=== PATIENT | male | born 1955 | race Caucasian/White ===

== ENCOUNTER 2017-01-04 15:13 | Observation (INO) ==
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
[2017-01-04 16:23] LABS: Basophils % 0.1 % (0.0-0.8); Eosinophils % 0.1 % (0.00-10.9); Hematocrit 39.4 VOL% (42.0-52.0); Hemoglobin 13.6 GM/DL (14.0-18.0); Immature Granulocytes % 0.6 %; Immature Granulocytes Absolute 0.08 #; Lymphocytes # 0.8 10*3/uL (1.4-4.0); Lymphocytes % 6.2 % (21.2-54.2); Mean Corpuscular HGB Conc 34.5 GM/DL (32-36); Mean Corpuscular Hemoglobin 30 PG (27-34); Mean Corpuscular Volume 85.7 FL (87-102); Mean Platelet Volume 9.8 FL (9.6-12.0); Monocytes # 0.6 10*3/uL (0.11-0.8); Monocytes % 4.3 % (1.7-12.7); Neutrophils # 11.9 10*3/uL (1.4-7.4); Neutrophils % 88.7 % (38.7-73.9); Platelet Count 259 T/CUMM (130-400); Red Cell Distribution Width 12.9 % (9.3-17.3); White Blood Count 13.5 T/CUMM (4-12)
--- NOTE | 2017-01-04 16:24 | XRay Report ---
XR KUB Indication: Abdominal pain. Abdomen one view: Comparison 07/23/2011. Surgical anastomotic suture line left colon noted. Slightly increased stool is present in primarily the ascending and transverse segments of the colon. No small bowel dilatation. No free air. Impression: Mild constipation. No obstruction. PROCEDURE INTERPRETED AT [facility] DEPARTMENT OF RADIOLOGY Final Report Signed by: Edilberto Pollard M.D.
[2017-01-04 16:35] LABS: Apearance,Urine CLEAR (Clear); Bilirubin,Urine Negative (Negative); Blood, Urine Negative (Negative); Glucose,Urine (UA) >=500 mg/dL (Negative); Ketones,Urine 80 mg/dL (Negative); Mucus,Urine Occasional /LPF (Occasional); Nitrite,Urine Negative (Negative); Protein,Urine Negative; Urine Color Straw (Yellow); Urine Specific Gravity 1.023 (1.001-1.035); Urine Urobilinogen < 2.0 EU/DL (0.2-1.0); WBC,Urine <1 /HPF (0-6)
[2017-01-04 16:36] LABS: Alanine Aminotransferase 36 U/L (16-61); Albumin 3.5 G/DL (3.4-5.0); Alkaline Phosphatase 141 U/L (45-117); Amylase 30 U/L (25-115); Aspartate Amino Transferase 12 U/L (0-37); Barbiturates Screen,Urine Negative (Negative); Benzodiazepines Screen,Urine Negative (Negative); Blood Urea Nitrogen 20 MG/DL (7-18); Calcium 8.8 MG/DL (8.5-10.1); Cannabinoid Screen,Urine Negative (Negative); Glucose 456 MG/DL (74-106); Opiate Screen,Urine Positive (Negative); Osmolality,Calculated 290.2 MOS/KG (273-304); Phencyclidine Screen,Urine Negative (Negative); Sodium 134 MMOL/L (136-145); Total Protein 6.7 G/DL (6.4-8.3)
[2017-01-04] MEDS ORDERED: INSULIN REGULAR 100 UNIT/ML IV STA (16:45)
[2017-01-04] MEDS ORDERED: INSULIN REGULAR 100 UNIT/ML ONE (16:49)
[2017-01-04 17:28] LABS: ABG Base Excess -6.1 MMOL/L (-2.5-2.5); ABG HCO3 18.2 MMOL/L (20-26); ABG Oxygen Saturation 97.5 % (95-100); ABG PCO2 32.5 MM HG (35-48); ABG PH 7.366 (7.35-7.45); ABG PO2 109.1 MM HG (80-95); ABG TCO2 19.2 MMOL/L (23-27)
[2017-01-04] MEDS ORDERED: PROMETHAZINE 25 MG/1 ML VIAL IM STA (17:36)
[2017-01-04] MEDS ORDERED: SODIUM CHLORIDE 0.9% 1,000 ML IV STA (17:38)
[2017-01-04] MEDS ORDERED: PROMETHAZINE 25 MG/1 ML VIAL ONE (17:41)
--- NOTE | 2017-01-04 19:17 | CT Report ---
CT abdomen pelvis w con Indication: Right upper quadrant pain with vomiting. CT ABDOMEN AND PELVIS WITH CONTRAST DLP: 392 mGy*cm. One or more of the following dose reduction techniques was used: Automated exposure control, adjustment of the mA and/or kV according the patient size, or use of iterative reconstruction techniques. Comparison: None Technique: Axial CT images of the abdomen and pelvis were obtained with IV contrast; Omnipaque 350, 100 cc. Oral contrast was administered. Abdomen: Normal heart size. Mild thickening of the distal esophagus noted. No hiatal hernia. Lung bases are clear. No bowel obstruction. Liver, spleen, pancreas and adrenal glands are unremarkable. 11 mm right renal hypodensity and 3 mm left hypodensities are present. Both kidneys are otherwise unremarkable. Aorta is normal size. Pelvis: Appendix not identified but there is no right lower quadrant inflammation. No free fluid, free air or lymphadenopathy. Urinary bladder and prostate are unremarkable. Somewhat increased gas is present focally in the distal rectum just above the anal verge. L5-S1 degenerative disc disease noted. Impression: 1. Evidence of mild esophagitis with thickening of the distal esophageal wall. 2. Bilateral renal hypodensities, probably cysts. PROCEDURE INTERPRETED AT [facility] DEPARTMENT OF RADIOLOGY Final Report Signed by: Edilberto Pollard M.D.
[2017-01-04] MEDS ORDERED: PANTOPRAZOLE 40 MG VIAL IV STA (19:43)
[2017-01-04] MEDS ORDERED: MORPHINE 2 MG/1 ML SYRINGE IV STA (19:43)
[2017-01-04] MEDS ORDERED: PANTOPRAZOLE 40 MG VIAL IV ONE (19:54)
[2017-01-04] MEDS ORDERED: MORPHINE 2 MG/1 ML SYRINGE ONE (19:54)
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
[2017-01-04] MEDS ORDERED: ENOXAPARIN 40 MG/0.4 ML SYRINGE SUBCUT SCH (21:00)
[2017-01-04] MEDS ORDERED: GLUCAGON 1 MG VIAL IM PRN ×2 (21:24→22:25)
[2017-01-04] MEDS ORDERED: PROMETHAZINE 25 MG TABLET PO PRN (21:24)
[2017-01-04] MEDS ORDERED: LACTULOSE 20 GM/30 ML UDCUP PO PRN (21:24)
[2017-01-04] MEDS ORDERED: PROMETHAZINE 25 MG/1 ML VIAL IM PRN (21:24)
[2017-01-04] MEDS ORDERED: traZODone 50 MG TABLET PO PRN (21:24)
[2017-01-04] MEDS ORDERED: DEXTROSE 50% 25 GM/50 ML SYRINGE IV PRN (21:24)
[2017-01-04] MEDS ORDERED: ACETAMINOPHEN 325 MG TABLET PO PRN (21:24)
[2017-01-04] MEDS ORDERED: ONDANSETRON 4 MG/2 ML VIAL IV PRN (21:24)
[2017-01-04] MEDS ORDERED: DEXTROSE 50% 25 GM/50 ML VIAL IV PRN (22:25)
[2017-01-04] MEDS: PANTOPRAZOLE 40 MG TABLET PO SCH (22:52)
[2017-01-04] MEDS: INSULIN LISPRO 100 UNIT/ML SUBCUT SCH (22:53)
[2017-01-04] MEDS: SODIUM CHLORIDE 0.9% 1,000 ML IV SCH (23:05)
[2017-01-05 05:43] LABS: Basophils % 0.1 % (0.0-0.8); Eosinophils # 0.1 10*3/uL (0.0-0.87); Eosinophils % 0.9 % (0.00-10.9); Hematocrit 35.4 VOL% (42.0-52.0); Hemoglobin 12.2 GM/DL (14.0-18.0); Immature Granulocytes % 0.2 %; Immature Granulocytes Absolute 0.02 #; Lymphocytes # 1.8 10*3/uL (1.4-4.0); Lymphocytes % 22.8 % (21.2-54.2); Mean Corpuscular HGB Conc 34.5 GM/DL (32-36); Mean Corpuscular Hemoglobin 30 PG (27-34); Mean Corpuscular Volume 85.9 FL (87-102); Mean Platelet Volume 10.1 FL (9.6-12.0); Monocytes # 0.6 10*3/uL (0.11-0.8); Monocytes % 6.9 % (1.7-12.7); Neutrophils # 5.6 10*3/uL (1.4-7.4); Neutrophils % 69.1 % (38.7-73.9); Platelet Count 241 T/CUMM (130-400); Red Blood Count 4.12 MC/CUMM (3.8-5.5); Red Cell Distribution Width 13.2 % (9.3-17.3); White Blood Count 8.1 T/CUMM (4-12)
[2017-01-05 06:14] LABS: Albumin 2.9 G/DL (3.4-5.0); Bilirubin,Total 0.8 MG/DL (0.2-1.0); Osmolality,Calculated 287.1 MOS/KG (273-304); Potassium 4.9 MMOL/L (3.5-5.1); Total Protein 5.4 G/DL (6.4-8.3)
[2017-01-05] MEDS: INSULIN LISPRO 100 UNIT/ML SUBCUT SCH ×2 (07:48→10:47)
[2017-01-05] MEDS: SODIUM CHLORIDE 0.9% 1,000 ML IV SCH (07:49)
[2017-01-05] MEDS: PANTOPRAZOLE 40 MG TABLET PO SCH (08:33)
--- NOTE | 2017-01-05 09:10 | Discharge Summary ---
Hospital Course - Hospital Course Hospital Course: Discharge diagnosis: 1. Type II DM, uncontrolled 2. Esophagitis The patient presented to the hospital for evaluation of some abdominal pain. CT scan showed some mild esophagitis. Glucose was elevated and it appears that the emergency department physicians were worried about "impending DKA." He was admitted for observation. On the day of discharge, he ate all of the food on his tray. Glucose was acceptable. Serum CO2 was within the normal range. We will let him go home. Medication reconciliation has been performed. ADA diet. Activity as tolerated. He will follow-up with his local physician. This note was completed using [employer] voice recognition software. There may be manager of procurement errors as a result. Discharge Plan - Discharge Data Disposition: Disch To Home/Self Care Condition at Discharge: Stable Discharge Diet: advance to your usual diet Activity: resume usual activities as tolerated Hygiene: no restrictions Weight Bearing at Discharge: full weight bearing Driving: no restrictions - Discharge Medications Continue Ropinirole HCl 4 mg PO BEDTIME Insulin Glargine [Lantus] 45 - 50 unit SUBCUT QAM Insulin Regular [HumuLIN R] 20 unit SUBCUT QPM Duloxetine HCl [Duloxetine] 60 mg PO DAILY Amlodipine Besylate 5 mg PO DAILY Glimepiride 2 mg PO DAILY - Follow Up or Referral - Forms/Instructions Exam - Constitutional Vitals: Period Temp Pulse Resp BP Sys/[place] Pulse Ox Last 24 Hr 97.1 F-98.8 F 73-100 18-20 100-132/56-75 97-100 Vital signs are noted above. Heart is regular with no murmur. Chest is clear with no rales or wheezes. Abdomen is soft with no significant mass or tenderness. He is awake and alert Discharge Results Labs on day of discharge: Labs from last 24 hours 01/05/17 01/05/17 01/05/17 07:26 04:45 04:45 WBC RBC Hgb Hct MCV MCH MCHC RDW Plt Count MPV Neut % (Auto) Lymph % (Auto) [place] % (Auto) Eos % (Auto) Baso % (Auto) Neut # (Auto) Lymph # (Auto) [place] # (Auto) Eos # (Auto) Baso # (Auto) Immature Gran % Nucleated RBC % Immature Gran # Nucleated RBCs # Immature Plt Fraction ABG pH ABG pCO2 ABG pO2 ABG HCO3 ABG Total CO2 ABG O2 Saturation ABG Base Excess Sodium 135 L Potassium 4.9 Chloride 101 Carbon Dioxide 27 Anion Gap 11.9 BUN 17 Creatinine 1.00 GFR Calculation 79 BUN/Creatinine Ratio 17.00 Glucose 381 H POC Glucose 405 H Hemoglobin A1c 11.9 H Calculated Osmolality 287.1 Calcium 8.0 L Total Bilirubin 0.80 AST 11 ALT 28 Alkaline Phosphatase 108 Total Protein 5.4 L Albumin 2.9 L Globulin 2.5 Albumin/Globulin Ratio 1.1 Amylase Lipase Urine Color Urine Appearance Urine pH Ur Specific [place] Urine Protein Urine Glucose (UA) Urine Ketones Urine Blood Urine Nitrate Urine Bilirubin Urine Urobilinogen Urine Leukocytes Urine WBC Urine Mucus Ur Culture Indicated? Urine Opiates Screen Ur Barbiturates Screen Ur Phencyclidine Scrn U Amphetamine/Methamph U Benzodiazepines Scrn U Cocaine Metab Screen U Cannabinoids Screen Serum Alcohol 01/05/17 01/04/17 01/04/17 04:45 22:08 20:13 WBC 8.1 D RBC 4.12 Hgb 12.2 L Hct 35.4 L MCV 85.9 L MCH 30 MCHC 34.5 RDW 13.2 Plt Count 241 MPV 10.1 Neut % (Auto) 69.1 Lymph % (Auto) 22.8 [place] % (Auto) 6.9 Eos % (Auto) 0.9 Baso % (Auto) 0.1 Neut # (Auto) 5.6 Lymph # (Auto) 1.8 [place] # (Auto) 0.6 Eos # (Auto) 0.1 Baso # (Auto) 0.0 Immature Gran % 0.2 Nucleated RBC % 0.0 Immature Gran # 0.02 Nucleated RBCs # 0.00 Immature Plt Fraction 0.0 ABG pH ABG pCO2 ABG pO2 ABG HCO3 ABG Total CO2 ABG O2 Saturation ABG Base Excess Sodium Potassium Chloride Carbon Dioxide Anion Gap BUN Creatinine GFR Calculation BUN/Creatinine Ratio Glucose POC Glucose 205 H 196 H Hemoglobin A1c Calculated Osmolality Calcium Total Bilirubin AST ALT Alkaline Phosphatase Total Protein Albumin Globulin Albumin/Globulin Ratio Amylase Lipase Urine Color Urine Appearance Urine pH Ur Specific [place] Urine Protein Urine Glucose (UA) Urine Ketones Urine Blood Urine Nitrate Urine Bilirubin Urine Urobilinogen Urine Leukocytes Urine WBC Urine Mucus Ur Culture Indicated? Urine Opiates Screen Ur Barbiturates Screen Ur Phencyclidine Scrn U Amphetamine/Methamph U Benzodiazepines Scrn U Cocaine Metab Screen U Cannabinoids Screen Serum Alcohol 01/04/17 01/04/17 01/04/17 17:49 17:20 15:55 WBC 13.5 H RBC 4.60 Hgb 13.6 L Hct 39.4 L MCV 85.7 L MCH 30 MCHC 34.5 RDW 12.9 Plt Count 259 MPV 9.8 Neut % (Auto) 88.7 H Lymph % (Auto) 6.2 L [place] % (Auto) 4.3 Eos % (Auto) 0.1 Baso % (Auto) 0.1 Neut # (Auto) 11.9 H Lymph # (Auto) 0.8 L [place] # (Auto) 0.6 Eos # (Auto) 0.0 Baso # (Auto) 0.0 Immature Gran % 0.6 Nucleated RBC % 0.0 Immature Gran # 0.08 Nucleated RBCs # 0.00 Immature Plt Fraction 0.0 ABG pH 7.366 ABG pCO2 32.5 L ABG pO2 109.1 H ABG HCO3 18.2 L ABG Total CO2 19.2 L ABG O2 Saturation 97.5 ABG Base Excess -6.1 L Sodium Potassium Chloride Carbon Dioxide Anion Gap BUN Creatinine GFR Calculation BUN/Creatinine Ratio Glucose POC Glucose 317 H Hemoglobin A1c Calculated Osmolality Calcium Total Bilirubin AST ALT Alkaline Phosphatase Total Protein Albumin Globulin Albumin/Globulin Ratio Amylase Lipase Urine Color Urine Appearance Urine pH Ur Specific [place] Urine Protein Urine Glucose (UA) Urine Ketones Urine Blood Urine Nitrate Urine Bilirubin Urine Urobilinogen Urine Leukocytes Urine WBC Urine Mucus Ur Culture Indicated? Urine Opiates Screen Ur Barbiturates Screen Ur Phencyclidine Scrn U Amphetamine/Methamph U Benzodiazepines Scrn U Cocaine Metab Screen U Cannabinoids Screen Serum Alcohol 01/04/17 01/04/17 01/04/17 15:55 15:55 15:55 WBC RBC Hgb Hct MCV MCH MCHC RDW Plt Count MPV Neut % (Auto) Lymph % (Auto) [place] % (Auto) Eos % (Auto) Baso % (Auto) Neut # (Auto) Lymph # (Auto) [place] # (Auto) Eos # (Auto) Baso # (Auto) Immature Gran % Nucleated RBC % Immature Gran # Nucleated RBCs # Immature Plt Fraction ABG pH ABG pCO2 ABG pO2 ABG HCO3 ABG Total CO2 ABG O2 Saturation ABG Base Excess Sodium 134 L Potassium 5.0 Chloride 98 Carbon Dioxide 22 Anion Gap 19.0 H BUN 20 H Creatinine 1.00 GFR Calculation 85 BUN/Creatinine Ratio 20.00 Glucose 456 H POC Glucose Hemoglobin A1c Calculated Osmolality 290.2 Calcium 8.8 Total Bilirubin 1.20 H AST 12 ALT 36 Alkaline Phosphatase 141 H Total Protein 6.7 Albumin 3.5 Globulin 3.2 Albumin/Globulin Ratio 1.0 L Amylase 30 Lipase 116.0 Urine Color Straw Urine Appearance Clear Urine pH 5.0 Ur Specific [place] 1.023 Urine Protein Negative Urine Glucose (UA) >=500 Urine Ketones 80 Urine Blood Negative Urine Nitrate Negative Urine Bilirubin Negative Urine Urobilinogen < 2.0 H Urine Leukocytes Negative Urine WBC <1 Urine Mucus Occasional Ur Culture Indicated? Not indicated Urine Opiates Screen Positive H Ur Barbiturates Screen Negative Ur Phencyclidine Scrn Negative U Amphetamine/Methamph Negative U Benzodiazepines Scrn Negative U Cocaine Metab Screen Negative U Cannabinoids Screen Negative Serum Alcohol < 15 L DS: Provider Date of admission: 01/04/17 20:17 Primary care physician: . No PCP Attending physician on admission: Gage Fong MD Consults: 01/04/17 21:24 Consult to [facility], Educator [CONS] Routine Reason for [facility]: Diabetes Education Consult Comment: diabetes education Discharging clinician: Enoch Mcrae MD Expected date of discharge: 01/05/17
[2017-01-05 12:46] VITALS: BP 125/71
== END 2017-01-05 14:39 | disposition home or self-care (01) ==
LOC: EDBD → EDUNIT# → N.EDINP 15:13 → N.ED 15:13 → SUATTDRO 20:17 → N.3E 21:15
PROVIDERS: ADMIT Family Medicine; ATTEND Internal Medicine Geriatric Medicine

== ENCOUNTER 2017-04-06 00:07 | Inpatient (IN) ==
[2017-04-06] MEDS ORDERED: ONDANSETRON 4 MG/2 ML VIAL IV STA (00:48)
[2017-04-06] MEDS ORDERED: PANTOPRAZOLE 40 MG VIAL IV STA (00:48)
[2017-04-06] MEDS ORDERED: INSULIN REGULAR 100 UNIT/ML IV STA (00:48)
[2017-04-06] MEDS ORDERED: SODIUM CHLORIDE 0.9% 1,000 ML IV STA (00:48)
[2017-04-06 01:18] LABS: Alanine Aminotransferase 28 U/L (16-61); Albumin 3.9 G/DL (3.4-5.0); Alkaline Phosphatase 211 U/L (45-117); Amylase 25 U/L (25-115); Aspartate Amino Transferase 20 U/L (0-37); Blood Urea Nitrogen 23 MG/DL (7-18); Calcium 9.3 MG/DL (8.5-10.1); Magnesium 2.2 MG/DL (1.8-2.4); Osmolality,Calculated 299.8 MOS/KG (273-304); Potassium 5.5 MMOL/L (3.5-5.1); Sodium 130 MMOL/L (136-145); Total Protein 7.5 G/DL (6.4-8.3); Troponin I Only < 0.015 NG/ML (0.00-0.045)
[2017-04-06] MEDS ORDERED: PANTOPRAZOLE 40 MG VIAL IV ONE (01:18)
[2017-04-06] MEDS ORDERED: ONDANSETRON 4 MG/2 ML VIAL ONE (01:18)
[2017-04-06] MEDS ORDERED: INSULIN REGULAR 100 UNIT/ML ONE (01:23)
[2017-04-06 01:31] LABS: Lactic Acid 3.6 MMOL/L (0.4-2.0)
[2017-04-06 01:31] LABS: Allen Test Positive; Pt O2 Delivery Device Room Air
[2017-04-06 01:32] LABS: Glucose 754 MG/DL (74-106)
[2017-04-06 01:32] LABS: ABG HCO3 13.3 MMOL/L (20-26); ABG Oxygen Saturation 97.7 % (95-100); ABG PCO2 32.4 MM HG (35-48); ABG PH 7.232 (7.35-7.45); ABG PO2 115.9 MM HG (80-95); ABG TCO2 14.3 MMOL/L (23-27)
[2017-04-06] MEDS ORDERED: SODIUM CHLORIDE 0.9% 1,850 ML IV ONE (01:32)
[2017-04-06 01:36] LABS: Hemoglobin 15.3 GM/DL (14.0-18.0); Mean Corpuscular HGB Conc 33.3 GM/DL (32-36); Mean Corpuscular Hemoglobin 29 PG (27-34); Mean Corpuscular Volume 88.3 FL (87-102); Platelet Count 334 T/CUMM (130-400); Red Blood Count 5.21 MC/CUMM (3.8-5.5); Red Cell Distribution Width 12.7 % (9.3-17.3)
[2017-04-06 01:37] LABS: Basophils % 0.2 % (0.0-0.8); Immature Granulocytes % 1.8 %; Lymphocytes # 0.9 10*3/uL (1.4-4.0); Lymphocytes % 8.2 % (21.2-54.2); Mean Platelet Volume 10.1 FL (9.6-12.0); Monocytes # 0.5 10*3/uL (0.11-0.8); Monocytes % 4.6 % (1.7-12.7); Neutrophils # 9.3 10*3/uL (1.4-7.4); Neutrophils % 85.2 % (38.7-73.9)
[2017-04-06 01:50] LABS: INR 0.9; PT Patient Result 9.8 SECS; Partial Thromboplastin Time 23.3 SECS (0-40)
[2017-04-06] MEDS ORDERED: SODIUM CHLORIDE 0.9% IV PRN (02:30)
[2017-04-06] MEDS ORDERED: MAGNESIUM SULF RIDER 4 GM in PREMIX 1 EACH IV PRN (02:30)
[2017-04-06] MEDS ORDERED: SODIUM BICARB INJ 100 MEQ in STERILE WATER INJ 400 ML IV PRN (02:30)
[2017-04-06] MEDS ORDERED: MAGNESIUM SULF RIDER 2 GM in PREMIX 1 EACH IV PRN (02:30)
[2017-04-06] MEDS ORDERED: DEXTROSE 50% 25 GM/50 ML VIAL IV PRN ×2 (02:30)
[2017-04-06] MEDS ORDERED: SODIUM PHOSPHATE IV PRN (02:30)
[2017-04-06] MEDS ORDERED: INSULIN REGULAR DRIP 100 ML IV ONE (03:24)
[2017-04-06] MEDS ORDERED: SODIUM CHLORIDE 0.9% 100 ML IV ONE (03:32)
[2017-04-06] MEDS ORDERED: PIPERACILLIN/TAZOBACTAM 3,375 MG VIAL IV ONE (03:32)
[2017-04-06 03:35] LABS: Barbiturates Screen,Urine Negative (Negative); Benzodiazepines Screen,Urine Negative (Negative); Cannabinoid Screen,Urine Negative (Negative); Opiate Screen,Urine Negative (Negative); Phencyclidine Screen,Urine Negative (Negative)
[2017-04-06 03:40] LABS: Apearance,Urine CLEAR (Clear); Bilirubin,Urine Negative (Negative); Blood, Urine Negative (Negative); Glucose,Urine (UA) >=500 mg/dL (Negative); Ketones,Urine 80 mg/dL (Negative); Mucus,Urine Occasional /LPF (Occasional); Nitrite,Urine Negative (Negative); Protein,Urine Negative; Urine Color Straw (Yellow); Urine Urobilinogen < 2.0 EU/DL (0.2-1.0); WBC,Urine 2 /HPF (0-6)
[2017-04-06] MEDS: INSULIN REGULAR DRIP 100 ML IV SCH (03:50)
[2017-04-06] MEDS: SODIUM CHLORIDE 0.9% 1,000 ML IV SCH ×3 (03:55→21:13)
[2017-04-06] MEDS: PIPERACILLIN/TAZOBACTAM 3,375 MG in SODIUM CHLORIDE 0.9% 100 ML IV SCH ×3 (04:00→20:44)
[2017-04-06 04:55] LABS: Apearance,Urine CLEAR (Clear); Bilirubin,Urine Negative (Negative); Blood, Urine Negative (Negative); Glucose,Urine (UA) >=500 mg/dL (Negative); Ketones,Urine 80 mg/dL (Negative); Mucus,Urine Occasional /LPF (Occasional); Nitrite,Urine Negative (Negative); Protein,Urine Negative; RBC,Urine <1 /HPF (0-4); Urine Color Straw (Yellow); Urine Specific Gravity 1.013 (1.001-1.035); Urine Urobilinogen < 2.0 EU/DL (0.2-1.0); WBC,Urine 4 /HPF (0-6)
[2017-04-06 06:50] LABS: Basophils % 0.1 % (0.0-0.8); Hematocrit 31.4 VOL% (42.0-52.0); Hemoglobin 10.8 GM/DL (14.0-18.0); Immature Granulocytes % 0.6 %; Immature Granulocytes Absolute 0.08 #; Lymphocytes # 1.2 10*3/uL (1.4-4.0); Lymphocytes % 9.1 % (21.2-54.2); Mean Corpuscular HGB Conc 34.4 GM/DL (32-36); Mean Corpuscular Hemoglobin 30 PG (27-34); Mean Corpuscular Volume 86.5 FL (87-102); Mean Platelet Volume 9.3 FL (9.6-12.0); Monocytes # 0.8 10*3/uL (0.11-0.8); Monocytes % 6.3 % (1.7-12.7); Neutrophils # 10.5 10*3/uL (1.4-7.4); Neutrophils % 83.9 % (38.7-73.9); Platelet Count 251 T/CUMM (130-400); Red Blood Count 3.63 MC/CUMM (3.8-5.5); White Blood Count 12.6 T/CUMM (4-12)
[2017-04-06 07:24] LABS: Calcium 7.2 MG/DL (8.5-10.1); Osmolality,Calculated 296.8 MOS/KG (273-304); Potassium 3.9 MMOL/L (3.5-5.1)
[2017-04-06 07:28] LABS: Albumin 2.8 G/DL (3.4-5.0); Bilirubin,Total 0.9 MG/DL (0.2-1.0); Calcium 7.4 MG/DL (8.5-10.1); Osmolality,Calculated 293.1 MOS/KG (273-304); Potassium 4.1 MMOL/L (3.5-5.1); Total Protein 5.4 G/DL (6.4-8.3)
[2017-04-06] MEDS: ENOXAPARIN 40 MG/0.4 ML SYRINGE SUBCUT SCH (08:23)
[2017-04-06] MEDS: POTASSIUM CHLORIDE RIDER 10 MEQ in PREMIX 1 EACH IV PRN ×4 (08:55→16:08)
[2017-04-06] MEDS ORDERED: PIPERACILLIN/TAZOBACTAM 3,375 MG in SODIUM CHLORIDE 0.9% 100 ML IV SCH (10:00)
[2017-04-06] MEDS ORDERED: INSULIN NPH 100 UNIT/ML SUBCUT ONE ×2 (10:00→10:30)
[2017-04-06 13:35] LABS: Calcium 7.6 MG/DL (8.5-10.1); Osmolality,Calculated 285.4 MOS/KG (273-304); Potassium 3.6 MMOL/L (3.5-5.1)
[2017-04-06] MEDS ORDERED: INSULIN REGULAR 100 UNIT/ML IV ONE (14:06)
[2017-04-06] MEDS: DULoxetine 30 MG CAPSULE PO SCH (14:50)
[2017-04-06] MEDS: SODIUM CHLOR 0.9% KCL 20 MEQ 20 MEQ/1,000 ML BAG IV SCH (17:32)
[2017-04-06 19:19] LABS: Calcium 7.6 MG/DL (8.5-10.1); Osmolality,Calculated 281.4 MOS/KG (273-304); Potassium 3.6 MMOL/L (3.5-5.1)
[2017-04-06] MEDS: INSULIN NPH 100 UNIT/ML SUBCUT SCH (20:44)
[2017-04-06] MEDS: rOPINIRole 1 MG TABLET PO SCH (20:44)
[2017-04-07 01:11] LABS: Calcium 7.8 MG/DL (8.5-10.1); Osmolality,Calculated 274.4 MOS/KG (273-304); Potassium 3.7 MMOL/L (3.5-5.1)
[2017-04-07] MEDS: SODIUM CHLORIDE 0.9% 1,000 ML IV SCH ×2 (01:22→12:07)
[2017-04-07] MEDS: INSULIN REGULAR DRIP 100 ML IV SCH (02:01)
[2017-04-07] MEDS: PIPERACILLIN/TAZOBACTAM 3,375 MG in SODIUM CHLORIDE 0.9% 100 ML IV SCH ×3 (02:45→20:28)
[2017-04-07] MEDS: POTASSIUM CHLORIDE RIDER 10 MEQ in PREMIX 1 EACH IV PRN ×2 (02:46→04:11)
[2017-04-07] MEDS: KETOROLAC 15 MG/1 ML VIAL IV PRN (04:16)
[2017-04-07] MEDS ORDERED: INSULIN NPH 100 UNIT/ML SUBCUT SCH (07:30)
[2017-04-07] MEDS: ENOXAPARIN 40 MG/0.4 ML SYRINGE SUBCUT SCH (11:25)
[2017-04-07] MEDS: DULoxetine 30 MG CAPSULE PO SCH (11:25)
[2017-04-07] MEDS: INSULIN NPH 100 UNIT/ML SUBCUT SCH ×2 (13:56→20:49)
[2017-04-07] MEDS: SODIUM CHLOR 0.9% KCL 20 MEQ 20 MEQ/1,000 ML BAG IV SCH (14:00)
[2017-04-07] MEDS: rOPINIRole 1 MG TABLET PO SCH (20:49)
[2017-04-07] MEDS ORDERED: ONDANSETRON 4 MG/2 ML VIAL IV PRN (21:41)
[2017-04-08] MEDS: INSULIN REGULAR DRIP 100 ML IV SCH (01:59)
[2017-04-08 05:10] LABS: Basophils % 0.2 % (0.0-0.8); Eosinophils # 0.1 10*3/uL (0.0-0.87); Eosinophils % 1.5 % (0.00-10.9); Hemoglobin 13.3 GM/DL (14.0-18.0); Immature Granulocytes % 0.4 %; Immature Granulocytes Absolute 0.02 #; Lymphocytes # 1.4 10*3/uL (1.4-4.0); Lymphocytes % 25.4 % (21.2-54.2); Mean Corpuscular Hemoglobin 30 PG (27-34); Mean Corpuscular Volume 84.4 FL (87-102); Mean Platelet Volume 9.6 FL (9.6-12.0); Monocytes # 0.5 10*3/uL (0.11-0.8); Monocytes % 8.6 % (1.7-12.7); Neutrophils # 3.5 10*3/uL (1.4-7.4); Neutrophils % 63.9 % (38.7-73.9); Platelet Count 269 T/CUMM (130-400); Red Cell Distribution Width 12.6 % (9.3-17.3); White Blood Count 5.5 T/CUMM (4-12)
[2017-04-08] MEDS: PIPERACILLIN/TAZOBACTAM 3,375 MG in SODIUM CHLORIDE 0.9% 100 ML IV SCH ×4 (05:15→21:09)
[2017-04-08 05:36] LABS: Calcium 8.8 MG/DL (8.5-10.1)
[2017-04-08] MEDS: INSULIN NPH 100 UNIT/ML SUBCUT SCH ×2 (08:09→21:05)
[2017-04-08] MEDS: ENOXAPARIN 40 MG/0.4 ML SYRINGE SUBCUT SCH (08:58)
[2017-04-08] MEDS: DULoxetine 30 MG CAPSULE PO SCH (08:58)
[2017-04-08] MEDS: SODIUM CHLOR 0.9% KCL 20 MEQ 20 MEQ/1,000 ML BAG IV SCH (10:00)
[2017-04-08] MEDS ORDERED: DEXTROSE 50% 25 GM/50 ML VIAL IV PRN ×2 (11:32→12:39)
[2017-04-08] MEDS ORDERED: GLUCAGON 1 MG VIAL IM PRN ×2 (11:32→12:39)
[2017-04-08] MEDS: KETOROLAC 15 MG/1 ML VIAL IV PRN (16:37)
[2017-04-08] MEDS: INSULIN LISPRO 100 UNIT/ML SUBCUT SCH ×2 (18:04→21:06)
[2017-04-08] MEDS: INSULIN REGULAR 100 UNIT/ML SUBCUT SCH ×2 (18:04→21:05)
[2017-04-08] MEDS: rOPINIRole 1 MG TABLET PO SCH (21:03)
[2017-04-09] MEDS: INSULIN REGULAR DRIP 100 ML IV SCH (02:32)
[2017-04-09] MEDS: PIPERACILLIN/TAZOBACTAM 3,375 MG in SODIUM CHLORIDE 0.9% 100 ML IV SCH ×2 (05:43→13:35)
[2017-04-09] MEDS: ENOXAPARIN 40 MG/0.4 ML SYRINGE SUBCUT SCH (08:42)
[2017-04-09] MEDS: DULoxetine 30 MG CAPSULE PO SCH (08:42)
[2017-04-09] MEDS: INSULIN NPH 100 UNIT/ML SUBCUT SCH (08:43)
[2017-04-09] MEDS: INSULIN REGULAR 100 UNIT/ML SUBCUT SCH ×3 (08:44→16:50)
[2017-04-09] MEDS: INSULIN LISPRO 100 UNIT/ML SUBCUT SCH ×3 (08:45→16:50)
[2017-04-09] MEDS: SODIUM CHLOR 0.9% KCL 20 MEQ 20 MEQ/1,000 ML BAG IV SCH (12:22)
[2017-04-09 20:53] VITALS: BP 125/64
== END 2017-04-09 20:46 | disposition home or self-care (01) | DRG 638 ==
LOC: EDUNIT# → EDBD → N.ED 00:07 → N.EDINP 02:30 → N.CC 03:16 → N.3E 04-08 13:00
PROVIDERS: ADMIT Internal Medicine; ATTEND Internal Medicine

== ENCOUNTER 2017-07-03 21:25 | Inpatient (IN) ==
[2017-07-03] MEDS ORDERED: SODIUM CHLORIDE 0.9% 1,000 ML IV STA (22:44)
[2017-07-04 00:48] LABS: Basophils % 0.1 % (0.0-0.8); Eosinophils % 0.1 % (0.00-10.9); Hematocrit 44.4 VOL% (42.0-52.0); Hemoglobin 14.8 GM/DL (14.0-18.0); Immature Granulocytes % 0.3 %; Immature Granulocytes Absolute 0.02 #; Lymphocytes % 14.2 % (21.2-54.2); Mean Corpuscular HGB Conc 33.3 GM/DL (32-36); Mean Corpuscular Hemoglobin 29 PG (27-34); Mean Corpuscular Volume 87.7 FL (87-102); Monocytes # 0.3 10*3/uL (0.11-0.8); Monocytes % 4.4 % (1.7-12.7); Neutrophils # 5.7 10*3/uL (1.4-7.4); Neutrophils % 80.9 % (38.7-73.9); Platelet Count 261 T/CUMM (130-400); Red Blood Count 5.06 MC/CUMM (3.8-5.5); Red Cell Distribution Width 13.2 % (9.3-17.3); White Blood Count 7.1 T/CUMM (4-12)
[2017-07-04] MEDS ORDERED: ONDANSETRON 4 MG/2 ML VIAL IV STA (01:02)
[2017-07-04 01:06] LABS: Apearance,Urine CLEAR (Clear); Bilirubin,Urine Negative (Negative); Blood, Urine Negative (Negative); Glucose,Urine (UA) >=500 mg/dL (Negative); Ketones,Urine 20 mg/dL (Negative); Nitrite,Urine Negative (Negative); Protein,Urine Negative; RBC,Urine <1 /HPF (0-4); Urine Color Straw (Yellow); Urine Specific Gravity 1.026 (1.001-1.035); Urine Urobilinogen < 2.0 EU/DL (0.2-1.0); WBC,Urine <1 /HPF (0-6)
[2017-07-04] MEDS ORDERED: ONDANSETRON 4 MG/2 ML VIAL ONE (01:06)
[2017-07-04 01:09] LABS: Ammonia 19 UMOL/L (11-32)
[2017-07-04 01:27] LABS: Barbiturates Screen,Urine Negative (Negative); Benzodiazepines Screen,Urine Negative (Negative); Cannabinoid Screen,Urine Negative (Negative); Opiate Screen,Urine Negative (Negative); Phencyclidine Screen,Urine Negative (Negative)
[2017-07-04 01:35] LABS: Alanine Aminotransferase 33 U/L (16-61); Albumin 4.1 G/DL (3.4-5.0); Alkaline Phosphatase 175 U/L (45-117); Amylase 38 U/L (25-115); Aspartate Amino Transferase 16 U/L (0-37); Blood Urea Nitrogen 23 MG/DL (7-18); Calcium 9.3 MG/DL (8.5-10.1); Osmolality,Calculated 295.9 MOS/KG (273-304); Potassium 4.3 MMOL/L (3.5-5.1); Sodium 129 MMOL/L (136-145); Troponin I Only < 0.015 NG/ML (0.00-0.045)
[2017-07-04 01:38] LABS: Glucose 703 MG/DL (74-106)
[2017-07-04 01:39] LABS: ABG Base Excess -4.3 MMOL/L (-2.5-2.5); ABG HCO3 20.9 MMOL/L (20-26); ABG Oxygen Saturation 97.9 % (95-100); ABG PCO2 36.4 MM HG (35-48); ABG PH 7.359 (7.35-7.45); ABG TCO2 17.8 MMOL/L (23-27); Allen Test Positive; Pt O2 Delivery Device Room Air
[2017-07-04] MEDS ORDERED: INSULIN REGULAR DRIP 100 ML IV SCH ×2 (02:00→11:00)
[2017-07-04 02:04] LABS: Salicylate < 2.8 MG/DL (2.8-20)
[2017-07-04 02:05] LABS: Acetaminophen < 2.0 UG/ML (10-30)
[2017-07-04] MEDS ORDERED: DOCUSATE SODIUM 100 MG CAPSULE PO PRN (02:12)
[2017-07-04] MEDS ORDERED: GLUCAGON 1 MG VIAL IM PRN ×3 (02:12→12:46)
[2017-07-04] MEDS ORDERED: DEXTROSE 50% 25 GM/50 ML VIAL IV PRN ×5 (02:12→12:46)
[2017-07-04] MEDS ORDERED: SODIUM CHLORIDE 0.9% 1,000 ML IV SCH ×5 (02:30→17:15)
[2017-07-04] MEDS ORDERED: DEXTROSE 5% NACL 0.45% 1,000 ML IV SCH (02:30)
[2017-07-04] MEDS ORDERED: INSULIN GLARGINE 100 UNIT/ML SUBCUT ONE (05:30)
[2017-07-04] MEDS: PROMETHAZINE 25 MG TABLET PO SCH ×3 (05:32→17:16)
[2017-07-04 05:38] LABS: Basophils % 0.2 % (0.0-0.8); Eosinophils % 0.3 % (0.00-10.9); Hematocrit 38.8 VOL% (42.0-52.0); Hemoglobin 13.7 GM/DL (14.0-18.0); Immature Granulocytes % 0.5 %; Immature Granulocytes Absolute 0.03 #; Lymphocytes # 1.4 10*3/uL (1.4-4.0); Lymphocytes % 21.2 % (21.2-54.2); Mean Corpuscular HGB Conc 35.3 GM/DL (32-36); Mean Corpuscular Hemoglobin 30 PG (27-34); Mean Corpuscular Volume 85.3 FL (87-102); Mean Platelet Volume 9.9 FL (9.6-12.0); Monocytes # 0.5 10*3/uL (0.11-0.8); Neutrophils # 4.6 10*3/uL (1.4-7.4); Neutrophils % 70.8 % (38.7-73.9); Platelet Count 242 T/CUMM (130-400); Red Blood Count 4.55 MC/CUMM (3.8-5.5); Red Cell Distribution Width 13.2 % (9.3-17.3); White Blood Count 6.5 T/CUMM (4-12)
[2017-07-04 05:59] LABS: Calcium 8.6 MG/DL (8.5-10.1); Osmolality,Calculated 290.2 MOS/KG (273-304)
[2017-07-04] MEDS ORDERED: INSULIN REGULAR 100 UNIT/ML SUBCUT SCH (07:30)
[2017-07-04] MEDS ORDERED: INSULIN LISPRO 100 UNIT/ML SUBCUT SCH (07:30)
[2017-07-04] MEDS: DULoxetine 30 MG CAPSULE PO SCH (08:56)
[2017-07-04] MEDS: PANTOPRAZOLE 40 MG TABLET PO SCH (08:57)
[2017-07-04] MEDS: ENOXAPARIN 40 MG/0.4 ML SYRINGE SUBCUT SCH (08:57)
[2017-07-04] MEDS ORDERED: POTASSIUM CHLORIDE RIDER 10 MEQ in PREMIX 1 EACH IV PRN (10:35)
[2017-07-04] MEDS ORDERED: MAGNESIUM SULF RIDER 2 GM in PREMIX 1 EACH IV PRN (10:35)
[2017-07-04] MEDS ORDERED: MAGNESIUM SULF RIDER 4 GM in PREMIX 1 EACH IV PRN (10:35)
[2017-07-04] MEDS ORDERED: SODIUM PHOSPHATE INJ 14.2 MMOL in SODIUM CHLORIDE 0.9% 250 ML IV PRN (10:35)
[2017-07-04] MEDS ORDERED: SODIUM BICARB INJ 100 MEQ in STERILE WATER INJ 400 ML IV PRN (10:35)
[2017-07-04] MEDS ORDERED: INSULIN REGULAR 100 UNIT/ML IV ONE (10:35)
[2017-07-04] MEDS ORDERED: SODIUM CHLORIDE 0.9% 1,000 ML IV ONE (10:35)
[2017-07-04 11:22] LABS: Basophils % 0.2 % (0.0-0.8); Eosinophils # 0.1 10*3/uL (0.0-0.87); Eosinophils % 0.8 % (0.00-10.9); Hematocrit 36.3 VOL% (42.0-52.0); Hemoglobin 12.4 GM/DL (14.0-18.0); Immature Granulocytes % 0.3 %; Immature Granulocytes Absolute 0.02 #; Lymphocytes # 2.2 10*3/uL (1.4-4.0); Lymphocytes % 33.3 % (21.2-54.2); Mean Corpuscular HGB Conc 34.2 GM/DL (32-36); Mean Corpuscular Hemoglobin 30 PG (27-34); Mean Corpuscular Volume 87.1 FL (87-102); Mean Platelet Volume 9.8 FL (9.6-12.0); Monocytes # 0.6 10*3/uL (0.11-0.8); Monocytes % 8.7 % (1.7-12.7); Neutrophils # 3.8 10*3/uL (1.4-7.4); Neutrophils % 56.7 % (38.7-73.9); Platelet Count 238 T/CUMM (130-400); Red Blood Count 4.17 MC/CUMM (3.8-5.5); Red Cell Distribution Width 13.2 % (9.3-17.3); White Blood Count 6.6 T/CUMM (4-12)
[2017-07-04 11:43] LABS: Calcium 8.1 MG/DL (8.5-10.1); Osmolality,Calculated 287.4 MOS/KG (273-304); Potassium 3.9 MMOL/L (3.5-5.1)
[2017-07-04] MEDS: ROSUVASTATIN 20 MG TABLET PO SCH (13:54)
[2017-07-04] MEDS: ACETAMINOPHEN 325 MG TABLET PO PRN ×2 (13:55→18:28)
[2017-07-04] MEDS ORDERED: INSULIN NPH/REGULAR 70/30 100 UNIT/ML SUBCUT SCH (16:30)
[2017-07-04] MEDS: INSULIN LISPRO 100 UNIT/ML SUBCUT SCH ×2 (16:40→21:15)
[2017-07-04] MEDS ORDERED: rOPINIRole 4 MG TABLET PO SCH (21:00)
[2017-07-04] MEDS ORDERED: INSULIN GLARGINE 100 UNIT/ML SUBCUT SCH (21:00)
[2017-07-04] MEDS: SODIUM CHLORIDE 0.45% 1,000 ML IV SCH (22:26)
[2017-07-04] MEDS ORDERED: traZODone 50 MG TABLET PO PRN (23:35)
[2017-07-05] MEDS ORDERED: SODIUM CHLORIDE 0.45% 1,000 ML IV SCH (03:35)
[2017-07-05 05:14] LABS: Calcium 8.1 MG/DL (8.5-10.1); Osmolality,Calculated 282.4 MOS/KG (273-304); Potassium 4.1 MMOL/L (3.5-5.1)
[2017-07-05] MEDS: SODIUM CHLORIDE 0.45% 1,000 ML IV SCH (06:29)
[2017-07-05] MEDS ORDERED: INSULIN NPH/REGULAR 70/30 100 UNIT/ML SUBCUT SCH ×3 (07:30→11:23)
[2017-07-05] MEDS: DULoxetine 30 MG CAPSULE PO SCH (08:58)
[2017-07-05] MEDS: PANTOPRAZOLE 40 MG TABLET PO SCH (08:58)
[2017-07-05] MEDS: ROSUVASTATIN 20 MG TABLET PO SCH (08:58)
[2017-07-05] MEDS: ENOXAPARIN 40 MG/0.4 ML SYRINGE SUBCUT SCH (08:58)
[2017-07-05] MEDS: INSULIN LISPRO 100 UNIT/ML SUBCUT SCH ×2 (08:59→11:48)
[2017-07-05] MEDS ORDERED: CITALOPRAM 40 MG TABLET PO SCH (09:00)
[2017-07-05] MEDS ORDERED: amLODIPine 5 MG TABLET PO SCH (11:30)
[2017-07-05 12:30] VITALS: BP 151/75
== END 2017-07-05 13:45 | DRG 638 ==
LOC: N.ED 21:25 → N.EDINP 07-04 02:12 → N.ICU 07-04 03:09 → N.4E 07-04 14:23
PROVIDERS: ADMIT Hospitalist; ATTEND Hospitalist

== ENCOUNTER 2017-08-06 21:39 | Inpatient (IN) ==
[2017-08-06] MEDS ORDERED: SODIUM CHLORIDE 0.9% 1,000 ML IV STA (22:09)
[2017-08-06] MEDS ORDERED: ONDANSETRON 4 MG/2 ML VIAL IV STA (22:09)
[2017-08-06] MEDS ORDERED: PANTOPRAZOLE 40 MG VIAL IV STA (22:09)
[2017-08-06] MEDS ORDERED: KETOROLAC 30 MG/1 ML VIAL IV STA (22:09)
[2017-08-06] MEDS ORDERED: ONDANSETRON 4 MG/2 ML VIAL ONE (22:39)
[2017-08-06] MEDS ORDERED: PANTOPRAZOLE 40 MG VIAL IV ONE (22:39)
[2017-08-06] MEDS ORDERED: KETOROLAC 30 MG/1 ML VIAL ONE (22:39)
[2017-08-06 22:44] LABS: Basophils % 0.2 % (0.0-0.8); Eosinophils % 0.3 % (0.00-10.9); Hematocrit 41.7 VOL% (42.0-52.0); Hemoglobin 13.7 GM/DL (14.0-18.0); Immature Granulocytes % 0.8 %; Immature Granulocytes Absolute 0.07 #; Lymphocytes # 0.9 10*3/uL (1.4-4.0); Lymphocytes % 10.6 % (21.2-54.2); Mean Corpuscular HGB Conc 32.9 GM/DL (32-36); Mean Corpuscular Hemoglobin 30 PG (27-34); Mean Corpuscular Volume 90.8 FL (87-102); Mean Platelet Volume 10.9 FL (9.6-12.0); Monocytes # 0.5 10*3/uL (0.11-0.8); Monocytes % 5.8 % (1.7-12.7); Neutrophils # 7.1 10*3/uL (1.4-7.4); Neutrophils % 82.3 % (38.7-73.9); Platelet Count 152 T/CUMM (130-400); Red Blood Count 4.59 MC/CUMM (3.8-5.5); Red Cell Distribution Width 13.7 % (9.3-17.3); White Blood Count 8.7 T/CUMM (4-12)
[2017-08-06 23:18] LABS: Apearance,Urine CLEAR (Clear); Bilirubin,Urine Negative (Negative); Blood, Urine Negative (Negative); Glucose,Urine (UA) >=500 mg/dL (Negative); Ketones,Urine 80 mg/dL (Negative); Mucus,Urine Occasional /LPF (Occasional); Nitrite,Urine Negative (Negative); Protein,Urine Negative; Urine Color Straw (Yellow); Urine Specific Gravity 1.023 (1.001-1.035); Urine Urobilinogen < 2.0 EU/DL (0.2-1.0)
[2017-08-06] MEDS ORDERED: INSULIN REGULAR 100 UNIT/ML SUBCUT STA (23:52)
[2017-08-06 23:54] LABS: Potassium 5.2 MMOL/L (3.5-5.1); Sodium 131 MMOL/L (136-145)
[2017-08-06 23:57] LABS: Calcium 8.4 MG/DL (8.5-10.1)
[2017-08-07 00:03] LABS: Alanine Aminotransferase 30 U/L (16-61); Albumin 3.2 G/DL (3.4-5.0); Amylase 20 U/L (25-115); Aspartate Amino Transferase 24 U/L (0-37); Blood Urea Nitrogen 24 MG/DL (7-18); Osmolality,Calculated 293.7 MOS/KG (273-304); Total Protein 6.5 G/DL (6.4-8.3)
[2017-08-07 00:04] LABS: Alkaline Phosphatase 127 U/L (45-117)
[2017-08-07 00:09] LABS: Glucose 605 MG/DL (74-106)
[2017-08-07 00:10] LABS: Lactic Acid 2.8 MMOL/L (0.4-2.0)
[2017-08-07] MEDS ORDERED: INSULIN REGULAR 100 UNIT/ML ONE (00:11)
[2017-08-07 00:24] LABS: Troponin I Only < 0.015 NG/ML (0.00-0.045)
[2017-08-07] MEDS ORDERED: SODIUM CHLORIDE 0.9% 1,000 ML IV STA (00:28)
[2017-08-07 00:49] LABS: ABG Base Excess -11.6 MMOL/L (-2.5-2.5); ABG HCO3 15.4 MMOL/L (20-26); ABG Oxygen Saturation 97.1 % (95-100); ABG PCO2 34.3 MM HG (35-48); ABG PH 7.248 (7.35-7.45); ABG TCO2 13.4 MMOL/L (23-27); Allen Test Positive; Pt O2 Delivery Device Room Air
[2017-08-07] MEDS ORDERED: tiZANidine 4 MG TABLET PO PRN (07:44)
[2017-08-07] MEDS ORDERED: INSULIN REGULAR DRIP 100 ML IV SCH (07:44)
[2017-08-07] MEDS ORDERED: MAGNESIUM SULF RIDER 4 GM in PREMIX 1 EACH IV PRN (07:44)
[2017-08-07] MEDS ORDERED: MAGNESIUM SULF RIDER 2 GM in PREMIX 1 EACH IV PRN (07:44)
[2017-08-07] MEDS ORDERED: SODIUM PHOSPHATE INJ 15.8 MMOL in SODIUM CHLORIDE 0.9% 250 ML IV PRN (07:44)
[2017-08-07] MEDS ORDERED: DEXTROSE 50% 25 GM/50 ML VIAL IV PRN ×3 (07:44→12:16)
[2017-08-07] MEDS ORDERED: SODIUM BICARB INJ 100 MEQ in STERILE WATER INJ 400 ML IV PRN (07:44)
[2017-08-07] MEDS ORDERED: INSULIN REGULAR 100 UNIT/ML IV ONE (07:44)
[2017-08-07] MEDS ORDERED: POTASSIUM CHLORIDE RIDER 10 MEQ in PREMIX 1 EACH IV PRN (07:44)
[2017-08-07] MEDS ORDERED: SODIUM CHLORIDE 0.9% 1,000 ML IV SCH ×2 (08:11→08:30)
[2017-08-07 09:00] LABS: Calcium 8.4 MG/DL (8.5-10.1); Osmolality,Calculated 292.7 MOS/KG (273-304); Potassium 4.9 MMOL/L (3.5-5.1)
[2017-08-07 09:05] LABS: Cholesterol 147 MG/DL (50-200); HDL Cholesterol 46 MG/DL (40-60); Triglycerides 165 MG/DL (2-150)
[2017-08-07] MEDS: IBUPROFEN 800 MG TABLET PO SCH ×3 (09:55→21:27)
[2017-08-07] MEDS: ENOXAPARIN 40 MG/0.4 ML SYRINGE SUBCUT SCH (09:55)
[2017-08-07] MEDS ORDERED: traZODone 50 MG TABLET PO PRN (11:17)
[2017-08-07] MEDS ORDERED: SILDENAFIL 20 MG TABLET PO PRN (11:17)
[2017-08-07] MEDS ORDERED: PROMETHAZINE 25 MG TABLET PO PRN (11:17)
[2017-08-07 12:04] LABS: Calcium 7.9 MG/DL (8.5-10.1); Osmolality,Calculated 288.3 MOS/KG (273-304); Potassium 3.6 MMOL/L (3.5-5.1)
[2017-08-07] MEDS ORDERED: POTASSIUM CHLORIDE 20 MEQ TABLET PO ONE (12:12)
[2017-08-07] MEDS ORDERED: GLUCAGON 1 MG VIAL IM PRN ×2 (12:13→12:16)
[2017-08-07] MEDS: INSULIN ASPART PROTAMINE/ASPART 70/30 100 UNIT/ML SUBCUT SCH ×2 (12:42→17:28)
[2017-08-07 16:21] LABS: Calcium 7.8 MG/DL (8.5-10.1); Osmolality,Calculated 282.4 MOS/KG (273-304); Potassium 4.3 MMOL/L (3.5-5.1)
[2017-08-07] MEDS: SODIUM CHLORIDE 0.9% 1,000 ML IV SCH (16:31)
[2017-08-07] MEDS: INSULIN REGULAR 100 UNIT/ML SUBCUT SCH ×2 (16:40→21:28)
[2017-08-07 18:18] LABS: Barbiturates Screen,Urine Negative (Negative); Benzodiazepines Screen,Urine Negative (Negative); Cannabinoid Screen,Urine Negative (Negative); Opiate Screen,Urine Negative (Negative); Phencyclidine Screen,Urine Negative (Negative)
[2017-08-07 19:52] LABS: Calcium 7.4 MG/DL (8.5-10.1); Osmolality,Calculated 286.4 MOS/KG (273-304); Potassium 3.9 MMOL/L (3.5-5.1)
[2017-08-07] MEDS ORDERED: SODIUM CHLORIDE 0.45% 1,000 ML IV SCH (20:11)
[2017-08-07] MEDS ORDERED: rOPINIRole 4 MG TABLET PO SCH (21:00)
[2017-08-07] MEDS ORDERED: ROSUVASTATIN 20 MG TABLET PO SCH (21:00)
[2017-08-08 00:19] LABS: Calcium 7.7 MG/DL (8.5-10.1); Osmolality,Calculated 284.4 MOS/KG (273-304); Potassium 3.8 MMOL/L (3.5-5.1)
[2017-08-08] MEDS: SODIUM CHLORIDE 0.9% 1,000 ML IV SCH (05:34)
[2017-08-08 05:57] LABS: Hematocrit 34.2 VOL% (42.0-52.0); Hemoglobin 11.4 GM/DL (14.0-18.0); Red Blood Count 3.77 MC/CUMM (3.8-5.5); White Blood Count 5.8 T/CUMM (4-12)
[2017-08-08 05:58] LABS: Basophils % 0.2 % (0.0-0.8); Eosinophils # 0.1 10*3/uL (0.0-0.87); Eosinophils % 1.4 % (0.00-10.9); Immature Granulocytes % 0.2 %; Immature Granulocytes Absolute 0.01 #; Lymphocytes # 1.2 10*3/uL (1.4-4.0); Lymphocytes % 20.4 % (21.2-54.2); Mean Corpuscular HGB Conc 33.3 GM/DL (32-36); Mean Corpuscular Hemoglobin 30 PG (27-34); Mean Corpuscular Volume 90.7 FL (87-102); Mean Platelet Volume 10.3 FL (9.6-12.0); Monocytes # 0.5 10*3/uL (0.11-0.8); Monocytes % 8.7 % (1.7-12.7); Neutrophils % 69.1 % (38.7-73.9); Platelet Count 255 T/CUMM (130-400)
[2017-08-08 06:18] LABS: Calcium 7.6 MG/DL (8.5-10.1); Osmolality,Calculated 288.4 MOS/KG (273-304); Potassium 4.4 MMOL/L (3.5-5.1)
[2017-08-08] MEDS: INSULIN REGULAR 100 UNIT/ML SUBCUT SCH ×2 (07:32→12:53)
[2017-08-08] MEDS: INSULIN ASPART PROTAMINE/ASPART 70/30 100 UNIT/ML SUBCUT SCH ×2 (07:32→12:52)
[2017-08-08] MEDS ORDERED: DULoxetine 30 MG CAPSULE PO SCH (09:00)
[2017-08-08] MEDS ORDERED: amLODIPine 5 MG TABLET PO SCH (09:00)
[2017-08-08] MEDS: ENOXAPARIN 40 MG/0.4 ML SYRINGE SUBCUT SCH (09:49)
[2017-08-08] MEDS: IBUPROFEN 800 MG TABLET PO SCH (09:49)
[2017-08-08 12:58] VITALS: BP 122/65
== END 2017-08-08 15:23 | disposition home or self-care (01) | DRG 638 ==
LOC: EDUNIT# → EDBD → N.ED 21:39 → N.EDINP 08-07 02:24 → SUATTDRO 08-07 02:24 → N.CC 08-07 06:41 → N.4E 08-07 20:48
PROVIDERS: ADMIT Family Medicine; ATTEND Internal Medicine

== ENCOUNTER 2017-08-31 19:37 | Inpatient (IN) ==
[2017-08-31 21:41] LABS: Basophils % 0.2 % (0.0-0.8); Eosinophils # 0.1 10*3/uL (0.0-0.87); Eosinophils % 1.6 % (0.00-10.9); Hematocrit 43.5 VOL% (42.0-52.0); Hemoglobin 14.5 GM/DL (14.0-18.0); Immature Granulocytes % 0.6 %; Immature Granulocytes Absolute 0.04 #; Lymphocytes # 1.7 10*3/uL (1.4-4.0); Lymphocytes % 26.4 % (21.2-54.2); Mean Corpuscular HGB Conc 33.3 GM/DL (32-36); Mean Corpuscular Hemoglobin 30 PG (27-34); Mean Platelet Volume 9.8 FL (9.6-12.0); Monocytes # 0.5 10*3/uL (0.11-0.8); Monocytes % 7.9 % (1.7-12.7); Neutrophils % 63.3 % (38.7-73.9); Platelet Count 363 T/CUMM (130-400); Red Blood Count 4.78 MC/CUMM (3.8-5.5); Red Cell Distribution Width 13.4 % (9.3-17.3); White Blood Count 6.3 T/CUMM (4-12)
[2017-08-31] MEDS ORDERED: DEXTROSE 50% 25 GM/50 ML SYRINGE IV ONE (21:48)
[2017-08-31] MEDS ORDERED: DEXTROSE 50% 25 GM/50 ML VIAL IV STA (21:57)
[2017-08-31] MEDS ORDERED: DEXT 5% NACL 0.45% KCL 20 MEQ 20 MEQ/1,000 ML BAG IV SCH (22:00)
[2017-08-31 22:10] LABS: Alanine Aminotransferase 40 U/L (16-61); Albumin 3.5 G/DL (3.4-5.0); Alkaline Phosphatase 135 U/L (45-117); Aspartate Amino Transferase 21 U/L (0-37); Bilirubin,Total < 0.39 MG/DL (0.2-1.0); Blood Urea Nitrogen 12 MG/DL (7-18); Calcium 9.3 MG/DL (8.5-10.1); Glucose 106 MG/DL (74-106); Osmolality,Calculated 278.4 MOS/KG (273-304); Sodium 140 MMOL/L (136-145); Total Protein 7.1 G/DL (6.4-8.3)
[2017-08-31 22:12] LABS: Acetaminophen < 2.0 UG/ML (10-30); Salicylate < 2.8 MG/DL (2.8-20)
[2017-08-31] MEDS ORDERED: guaiFENesin/DM ER 600-30 MG TABLET PO PRN (22:32)
[2017-08-31] MEDS ORDERED: NICOTINE 21 MG/24 HR PATCH TRANSDERM PRN (22:32)
[2017-08-31] MEDS ORDERED: diphenhydrAMINE CAP 25 MG CAPSULE PO PRN (22:32)
[2017-08-31] MEDS ORDERED: ONDANSETRON 4 MG/2 ML VIAL IV PRN (22:32)
[2017-08-31] MEDS ORDERED: traZODone 50 MG TABLET PO PRN (22:38)
[2017-08-31] MEDS ORDERED: PROMETHAZINE 25 MG TABLET PO PRN (22:38)
[2017-09-01] MEDS: rOPINIRole 1 MG TABLET PO SCH ×2 (00:40→20:25)
[2017-09-01] MEDS: ENOXAPARIN 40 MG/0.4 ML SYRINGE SUBCUT SCH ×2 (00:41→20:25)
[2017-09-01] MEDS: ROSUVASTATIN 20 MG TABLET PO SCH ×2 (00:41→20:24)
[2017-09-01] MEDS: DEXTROSE 5% NACL 0.45% 1,000 ML IV SCH ×2 (00:42→08:57)
[2017-09-01] MEDS: IBUPROFEN 400 MG TABLET PO PRN ×3 (01:22→20:25)
[2017-09-01 02:59] LABS: Barbiturates Screen,Urine Negative (Negative); Benzodiazepines Screen,Urine Positive (Negative); Cannabinoid Screen,Urine Negative (Negative); Opiate Screen,Urine Negative (Negative); Phencyclidine Screen,Urine Negative (Negative)
[2017-09-01 06:23] LABS: Calcium 8.5 MG/DL (8.5-10.1); Osmolality,Calculated 280.3 MOS/KG (273-304); Potassium 3.9 MMOL/L (3.5-5.1)
[2017-09-01] MEDS: ACETAMINOPHEN 325 MG TABLET PO PRN ×2 (06:44→15:52)
[2017-09-01] MEDS ORDERED: DULoxetine 30 MG CAPSULE PO SCH (09:00)
[2017-09-01] MEDS ORDERED: amLODIPine 5 MG TABLET PO SCH (09:00)
[2017-09-01] MEDS ORDERED: PANTOPRAZOLE 40 MG TABLET PO SCH (09:00)
[2017-09-01] MEDS: INSULIN LISPRO 100 UNIT/ML SUBCUT SCH ×2 (16:02→20:25)
[2017-09-01 23:14] VITALS: BP 126/67
== END 2017-09-01 23:53 | DRG 918 ==
LOC: N.EDINP 19:37 → N.ED 19:37 → N.CC 22:57
PROVIDERS: ADMIT Internal Medicine Geriatric Medicine; ATTEND Internal Medicine Geriatric Medicine

== ENCOUNTER 2017-10-04 23:18 | Observation (INO) ==
[2017-10-05] MEDS ORDERED: INSULIN REGULAR 100 UNIT/ML IV STA (00:14)
[2017-10-05] MEDS ORDERED: SODIUM CHLORIDE 0.9% 1,000 ML IV STA (00:14)
[2017-10-05] MEDS ORDERED: ONDANSETRON 4 MG/2 ML VIAL IV STA (00:14)
[2017-10-05 00:21] LABS: Basophils % 0.1 % (0.0-0.8); Eosinophils % 0.4 % (0.00-10.9); Hemoglobin 10.8 GM/DL (14.0-18.0); Immature Granulocytes % 0.7 %; Immature Granulocytes Absolute 0.05 #; Lymphocytes # 1.6 10*3/uL (1.4-4.0); Lymphocytes % 22.1 % (21.2-54.2); Mean Corpuscular HGB Conc 32.7 GM/DL (32-36); Mean Corpuscular Hemoglobin 30 PG (27-34); Mean Corpuscular Volume 91.9 FL (87-102); Mean Platelet Volume 10.5 FL (9.6-12.0); Monocytes # 0.5 10*3/uL (0.11-0.8); Monocytes % 7.5 % (1.7-12.7); Neutrophils % 69.2 % (38.7-73.9); Platelet Count 251 T/CUMM (130-400); Red Blood Count 3.59 MC/CUMM (3.8-5.5); Red Cell Distribution Width 13.9 % (9.3-17.3); White Blood Count 7.2 T/CUMM (4-12)
[2017-10-05 00:35] LABS: Alanine Aminotransferase 33 U/L (16-61); Albumin 3.1 G/DL (3.4-5.0); Alkaline Phosphatase 101 U/L (45-117); Amylase 54 U/L (25-115); Aspartate Amino Transferase 18 U/L (0-37); Bilirubin,Total < 0.39 MG/DL (0.2-1.0); Blood Urea Nitrogen 16 MG/DL (7-18); Calcium 8.2 MG/DL (8.5-10.1); Osmolality,Calculated 301.1 MOS/KG (273-304); Potassium 4.8 MMOL/L (3.5-5.1); Sodium 135 MMOL/L (136-145); Total Protein 6.1 G/DL (6.4-8.3); Troponin I Only < 0.015 NG/ML (0.00-0.045)
[2017-10-05 00:39] LABS: Glucose 654 MG/DL (74-106); Lactic Acid 2.1 MMOL/L (0.4-2.0)
[2017-10-05 00:57] LABS: Apearance,Urine CLEAR (Clear); Bilirubin,Urine Negative (Negative); Blood, Urine Negative (Negative); Glucose,Urine (UA) >=500 mg/dL (Negative); Ketones,Urine Negative (Negative); Nitrite,Urine Negative (Negative); Protein,Urine Negative; RBC,Urine <1 /HPF (0-4); Urine Color Colorless (Yellow); Urine Specific Gravity 1.016 (1.001-1.035); Urine Urobilinogen < 2.0 EU/DL (0.2-1.0)
[2017-10-05] MEDS ORDERED: ONDANSETRON 4 MG/2 ML VIAL IV PRN (01:50)
[2017-10-05] MEDS ORDERED: ZALEPLON 5 MG CAPSULE PO PRN (01:50)
[2017-10-05] MEDS ORDERED: GLUCAGON 1 MG VIAL IM PRN (01:50)
[2017-10-05] MEDS ORDERED: DEXTROSE 50% 25 GM/50 ML VIAL IV PRN (01:50)
[2017-10-05] MEDS: SODIUM CHLORIDE 0.9% 1,000 ML IV SCH ×3 (02:37→18:42)
[2017-10-05 06:34] LABS: Basophils % 0.2 % (0.0-0.8); Eosinophils # 0.1 10*3/uL (0.0-0.87); Hematocrit 33.3 VOL% (42.0-52.0); Hemoglobin 11.2 GM/DL (14.0-18.0); Immature Granulocytes % 0.6 %; Immature Granulocytes Absolute 0.04 #; Lymphocytes # 1.7 10*3/uL (1.4-4.0); Lymphocytes % 26.3 % (21.2-54.2); Mean Corpuscular HGB Conc 33.6 GM/DL (32-36); Mean Corpuscular Hemoglobin 30 PG (27-34); Mean Corpuscular Volume 89.8 FL (87-102); Mean Platelet Volume 10.2 FL (9.6-12.0); Monocytes # 0.5 10*3/uL (0.11-0.8); Monocytes % 8.3 % (1.7-12.7); Neutrophils % 63.6 % (38.7-73.9); Platelet Count 233 T/CUMM (130-400); Red Blood Count 3.71 MC/CUMM (3.8-5.5); Red Cell Distribution Width 13.9 % (9.3-17.3); White Blood Count 6.3 T/CUMM (4-12)
[2017-10-05 07:06] LABS: Bilirubin,Total 1.4 MG/DL (0.2-1.0); Calcium 8.3 MG/DL (8.5-10.1); Potassium 4.2 MMOL/L (3.5-5.1); Total Protein 5.9 G/DL (6.4-8.3)
[2017-10-05] MEDS ORDERED: INSULIN ASPART PROTAMINE/ASPART 70/30 100 UNIT/ML SUBCUT SCH (07:30)
[2017-10-05] MEDS ORDERED: GLIMEPIRIDE 4 MG TABLET PO SCH (08:00)
[2017-10-05] MEDS: ENOXAPARIN 40 MG/0.4 ML SYRINGE SUBCUT SCH (09:44)
[2017-10-05] MEDS: INSULIN REGULAR 100 UNIT/ML SUBCUT SCH ×4 (09:44→20:26)
[2017-10-05] MEDS: DULoxetine 30 MG CAPSULE PO SCH (09:45)
[2017-10-05] MEDS: LISINOPRIL 10 MG TABLET PO SCH ×2 (09:45→20:23)
[2017-10-05] MEDS: amLODIPine 5 MG TABLET PO SCH (13:08)
[2017-10-05] MEDS ORDERED: INSULIN NPH/REGULAR 70/30 100 UNIT/ML SUBCUT SCH (16:30)
[2017-10-05] MEDS: IBUPROFEN 600 MG TABLET PO PRN (20:23)
[2017-10-06] MEDS: SODIUM CHLORIDE 0.9% 1,000 ML IV SCH ×2 (02:22→10:47)
[2017-10-06] MEDS: IBUPROFEN 600 MG TABLET PO PRN (04:44)
[2017-10-06] MEDS ORDERED: INSULIN NPH/REGULAR 70/30 100 UNIT/ML SUBCUT SCH (07:30)
[2017-10-06 09:13] LABS: Basophils % 0.2 % (0.0-0.8); Eosinophils # 0.1 10*3/uL (0.0-0.87); Hematocrit 33.6 VOL% (42.0-52.0); Immature Granulocytes % 0.7 %; Immature Granulocytes Absolute 0.04 #; Lymphocytes # 1.4 10*3/uL (1.4-4.0); Mean Corpuscular HGB Conc 32.7 GM/DL (32-36); Mean Corpuscular Hemoglobin 31 PG (27-34); Mean Corpuscular Volume 93.1 FL (87-102); Mean Platelet Volume 10.3 FL (9.6-12.0); Monocytes # 0.5 10*3/uL (0.11-0.8); Neutrophils % 66.1 % (38.7-73.9); Platelet Count 215 T/CUMM (130-400); Red Blood Count 3.61 MC/CUMM (3.8-5.5); Red Cell Distribution Width 13.8 % (9.3-17.3)
[2017-10-06 09:40] LABS: Calcium 7.7 MG/DL (8.5-10.1); Osmolality,Calculated 291.7 MOS/KG (273-304); Potassium 4.2 MMOL/L (3.5-5.1)
[2017-10-06] MEDS: DULoxetine 30 MG CAPSULE PO SCH (10:43)
[2017-10-06] MEDS: amLODIPine 5 MG TABLET PO SCH (10:44)
[2017-10-06] MEDS: LISINOPRIL 10 MG TABLET PO SCH (10:44)
[2017-10-06] MEDS: ENOXAPARIN 40 MG/0.4 ML SYRINGE SUBCUT SCH (10:45)
[2017-10-06] MEDS: INSULIN REGULAR 100 UNIT/ML SUBCUT SCH ×2 (10:48→11:55)
[2017-10-06 11:14] VITALS: BP 133/77
== END 2017-10-06 13:45 ==
LOC: EDUNIT# → EDBD → N.EDINP 23:18 → N.ED 23:18 → SUATTDRO 10-05 01:50 → N.5E 10-05 02:56
PROVIDERS: ADMIT Internal Medicine; ATTEND Internal Medicine Infectious Disease

== ENCOUNTER 2018-01-11 02:43 | Inpatient (IN) ==
[2018-01-11] MEDS ORDERED: SODIUM CHLORIDE 0.9% 1,000 ML IV STA ×2 (03:12→05:35)
[2018-01-11] MEDS ORDERED: INSULIN REGULAR 100 UNIT/ML IV STA ×2 (03:13→04:36)
[2018-01-11 03:49] LABS: Albumin 3.8 G/DL (3.4-5.0); Calcium 8.8 MG/DL (8.5-10.1); Osmolality,Calculated 301.6 MOS/KG (273-304); Potassium 5.1 MMOL/L (3.5-5.1); Total Protein 7.5 G/DL (6.4-8.3)
[2018-01-11] MEDS ORDERED: INSULIN REGULAR DRIP 100 ML IV PRN ×2 (04:28→05:12)
[2018-01-11 04:40] LABS: Basophils % 0.2 % (0.0-0.8); Eosinophils % 0.1 % (0.00-10.9); Hematocrit 41.2 VOL% (42.0-52.0); Hemoglobin 13.4 GM/DL (14.0-18.0); Immature Granulocytes % 0.6 %; Lymphocytes # 0.8 10*3/uL (1.4-4.0); Lymphocytes % 4.6 % (21.2-54.2); Mean Corpuscular HGB Conc 32.5 GM/DL (32-36); Mean Corpuscular Hemoglobin 29 PG (27-34); Mean Corpuscular Volume 89.6 FL (87-102); Mean Platelet Volume 11.1 FL (9.6-12.0); Monocytes # 1.4 10*3/uL (0.11-0.8); Neutrophils # 15.1 10*3/uL (1.4-7.4); Neutrophils % 86.5 % (38.7-73.9); Platelet Count 326 T/CUMM (130-400); Red Cell Distribution Width 12.9 % (9.3-17.3); White Blood Count 17.5 T/CUMM (4-12)
[2018-01-11 05:11] LABS: VBG Base Excess -7.4 MEQ/L (0-4); VBG Oxygen Saturation 95.4 %; VBG PCO2 36.4 MMHG (41-51); VBG PH 7.313; VBG PO2 90.6 MMHG (17-40)
[2018-01-11 05:12] LABS: Band Neutrophils 1 % (0-10); Hypochromasia 1+; Lymphocytes 9 % (20-55); Platelet Estimate Adequate; Segmented Neutrophils 86 % (50-85); Total Cells Counted 100
[2018-01-11] MEDS: SODIUM CHLORIDE 0.9% 1,000 ML IV SCH ×3 (05:30→23:02)
[2018-01-11] MEDS ORDERED: MAGNESIUM SULF RIDER 2 GM in PREMIX 1 EACH IV PRN (06:04)
[2018-01-11] MEDS ORDERED: ACETAMINOPHEN 325 MG TABLET PO PRN (06:04)
[2018-01-11] MEDS ORDERED: SODIUM CHLORIDE 0.9% 1,000 ML IV ONE (06:04)
[2018-01-11] MEDS ORDERED: SODIUM BICARB INJ 100 MEQ in STERILE WATER INJ 400 ML IV PRN (06:04)
[2018-01-11] MEDS ORDERED: POTASSIUM CHLORIDE RIDER 10 MEQ in PREMIX 1 EACH IV PRN (06:04)
[2018-01-11] MEDS ORDERED: SODIUM PHOSPHATE INJ 17 MMOL in SODIUM CHLORIDE 0.9% 250 ML IV PRN (06:04)
[2018-01-11] MEDS ORDERED: MAGNESIUM SULF RIDER 4 GM in PREMIX 1 EACH IV PRN (06:04)
[2018-01-11] MEDS ORDERED: ALBUTEROL 2.5 MG/3 ML NEB RESP TX PRN (06:04)
[2018-01-11] MEDS ORDERED: PROMETHAZINE 25 MG/1 ML VIAL IM PRN (06:04)
[2018-01-11] MEDS ORDERED: GLUCAGON 1 MG VIAL IM PRN (06:04)
[2018-01-11] MEDS ORDERED: DEXTROSE 50% 25 GM/50 ML VIAL IV PRN ×2 (06:04)
[2018-01-11] MEDS ORDERED: INSULIN REGULAR DRIP 100 ML IV SCH (06:04)
[2018-01-11 06:24] LABS: ABG Base Excess -2.4 MMOL/L (-2.5-2.5); ABG HCO3 22.4 MMOL/L (20-26); ABG Oxygen Saturation 96.9 % (95-100); ABG PCO2 36.7 MM HG (35-48); ABG PH 7.387 (7.35-7.45); ABG PO2 89.9 MM HG (80-95); ABG TCO2 19.5 MMOL/L (23-27)
[2018-01-11 06:40] LABS: Calcium 8.6 MG/DL (8.5-10.1); Osmolality,Calculated 290.4 MOS/KG (273-304); Potassium 3.9 MMOL/L (3.5-5.1)
[2018-01-11 06:41] LABS: Apearance,Urine CLEAR (Clear); Bilirubin,Urine Negative (Negative); Blood, Urine Negative (Negative); Glucose,Urine (UA) >=500 mg/dL (Negative); Ketones,Urine 80 mg/dL (Negative); Nitrite,Urine Negative (Negative); Protein,Urine Negative; RBC,Urine <1 /HPF (0-4); Urine Color Straw (Yellow); Urine Specific Gravity 1.022 (1.001-1.035); Urine Urobilinogen < 2.0 EU/DL (0.2-1.0); WBC,Urine <1 /HPF (0-6)
[2018-01-11] MEDS: PANTOPRAZOLE 40 MG TABLET PO SCH (09:45)
[2018-01-11] MEDS: GLIMEPIRIDE 2 MG TABLET PO SCH (09:45)
[2018-01-11] MEDS: amLODIPine 5 MG TABLET PO SCH (09:46)
[2018-01-11] MEDS: GABAPENTIN 100 MG CAPSULE PO SCH (09:46)
[2018-01-11] MEDS: DULoxetine 30 MG CAPSULE PO SCH (09:46)
[2018-01-11] MEDS: INSULIN NPH/REGULAR 70/30 100 UNIT/ML SUBCUT SCH (09:46)
[2018-01-11] MEDS ORDERED: SODIUM CHLORIDE 0.9% 1,000 ML IV SCH (09:54)
[2018-01-11] MEDS: DEXTROSE 5% NACL 0.9% 1,000 ML IV SCH ×2 (10:05→14:36)
[2018-01-11 10:31] LABS: Calcium 8.1 MG/DL (8.5-10.1); Osmolality,Calculated 287.4 MOS/KG (273-304); Potassium 3.4 MMOL/L (3.5-5.1)
[2018-01-11] MEDS: DEXTROSE 50% 25 GM/50 ML VIAL IV PRN (15:33)
[2018-01-11] MEDS ORDERED: rOPINIRole 4 MG TABLET PO ONE (15:40)
[2018-01-11] MEDS: INSULIN LISPRO 100 UNIT/ML SUBCUT SCH ×2 (15:48→20:18)
[2018-01-11] MEDS: POTASSIUM CHLORIDE 20 MEQ TABLET PO PRN (18:17)
[2018-01-11 18:43] LABS: Calcium 7.7 MG/DL (8.5-10.1); Osmolality,Calculated 285.1 MOS/KG (273-304); Potassium 4.2 MMOL/L (3.5-5.1)
[2018-01-11] MEDS ORDERED: INSULIN NPH/REGULAR 70/30 100 UNIT/ML SUBCUT SCH (19:00)
[2018-01-11] MEDS: rOPINIRole 4 MG TABLET PO SCH (20:18)
[2018-01-11] MEDS ORDERED: SODIUM CHLORIDE 0.45% 1,000 ML IV SCH (21:54)
[2018-01-11] MEDS: ONDANSETRON 4 MG/2 ML VIAL IV PRN (22:47)
[2018-01-11] MEDS ORDERED: BISMUTH SUBSALICYLATE 30 ML/524 MG 240 ML/BOTTLE PO PRN (22:55)
[2018-01-12] MEDS: INSULIN LISPRO 100 UNIT/ML SUBCUT SCH ×6 (00:08→20:58)
[2018-01-12 04:00] LABS: Basophils % 0.2 % (0.0-0.8); Eosinophils # 0.2 10*3/uL (0.0-0.87); Eosinophils % 1.8 % (0.00-10.9); Hematocrit 35.1 VOL% (42.0-52.0); Hemoglobin 11.8 GM/DL (14.0-18.0); Immature Granulocytes % 0.2 %; Immature Granulocytes Absolute 0.02 #; Lymphocytes # 1.6 10*3/uL (1.4-4.0); Lymphocytes % 19.2 % (21.2-54.2); Mean Corpuscular HGB Conc 33.6 GM/DL (32-36); Mean Corpuscular Hemoglobin 29 PG (27-34); Mean Corpuscular Volume 87.1 FL (87-102); Mean Platelet Volume 10.1 FL (9.6-12.0); Monocytes # 0.8 10*3/uL (0.11-0.8); Monocytes % 9.7 % (1.7-12.7); Neutrophils # 5.7 10*3/uL (1.4-7.4); Neutrophils % 68.9 % (38.7-73.9); Platelet Count 275 T/CUMM (130-400); Red Blood Count 4.03 MC/CUMM (3.8-5.5); Red Cell Distribution Width 12.9 % (9.3-17.3); White Blood Count 8.3 T/CUMM (4-12)
[2018-01-12 04:31] LABS: Calcium 8.1 MG/DL (8.5-10.1); Osmolality,Calculated 283.1 MOS/KG (273-304); Potassium 3.9 MMOL/L (3.5-5.1)
[2018-01-12] MEDS: POTASSIUM CHLORIDE 20 MEQ TABLET PO PRN (06:18)
[2018-01-12] MEDS: SODIUM CHLORIDE 0.9% 1,000 ML IV SCH ×2 (07:24→16:22)
[2018-01-12] MEDS: DEXTROSE 5% NACL 0.9% 1,000 ML IV SCH (07:43)
[2018-01-12] MEDS: ONDANSETRON 4 MG/2 ML VIAL IV PRN (08:46)
[2018-01-12] MEDS: amLODIPine 5 MG TABLET PO SCH (08:48)
[2018-01-12] MEDS: GABAPENTIN 100 MG CAPSULE PO SCH (08:48)
[2018-01-12] MEDS: DULoxetine 30 MG CAPSULE PO SCH (08:48)
[2018-01-12] MEDS: GLIMEPIRIDE 2 MG TABLET PO SCH (08:49)
[2018-01-12] MEDS: LISINOPRIL 10 MG TABLET PO SCH ×2 (08:49→20:59)
[2018-01-12] MEDS: INSULIN NPH/REGULAR 70/30 100 UNIT/ML SUBCUT SCH ×2 (08:51→11:22)
[2018-01-12] MEDS: PANTOPRAZOLE 40 MG TABLET PO SCH (08:55)
[2018-01-12] MEDS ORDERED: INSULIN NPH/REGULAR 70/30 100 UNIT/ML SUBCUT SCH (19:00)
[2018-01-12] MEDS: rOPINIRole 4 MG TABLET PO SCH (20:59)
[2018-01-13] MEDS: DEXTROSE 50% 25 GM/50 ML VIAL IV PRN (06:40)
[2018-01-13] MEDS: INSULIN LISPRO 100 UNIT/ML SUBCUT SCH ×4 (08:07→21:04)
[2018-01-13] MEDS: LISINOPRIL 10 MG TABLET PO SCH ×2 (09:11→21:05)
[2018-01-13] MEDS: INSULIN NPH/REGULAR 70/30 100 UNIT/ML SUBCUT SCH ×2 (09:11→09:47)
[2018-01-13] MEDS: DULoxetine 30 MG CAPSULE PO SCH (09:11)
[2018-01-13] MEDS: PANTOPRAZOLE 40 MG TABLET PO SCH (09:11)
[2018-01-13] MEDS: GLIMEPIRIDE 2 MG TABLET PO SCH (09:11)
[2018-01-13] MEDS: GABAPENTIN 100 MG CAPSULE PO SCH (09:11)
[2018-01-13] MEDS: amLODIPine 5 MG TABLET PO SCH (09:11)
[2018-01-13] MEDS: ONDANSETRON 4 MG/2 ML VIAL IV PRN (11:08)
[2018-01-13] MEDS: SODIUM CHLORIDE 0.9% 1,000 ML IV SCH ×2 (12:05→14:00)
[2018-01-13] MEDS ORDERED: INSULIN NPH/REGULAR 70/30 100 UNIT/ML SUBCUT SCH (19:00)
[2018-01-13] MEDS: rOPINIRole 4 MG TABLET PO SCH (21:05)
[2018-01-14 05:36] LABS: Calcium 8.2 MG/DL (8.5-10.1); Osmolality,Calculated 284.3 MOS/KG (273-304)
[2018-01-14] MEDS: INSULIN LISPRO 100 UNIT/ML SUBCUT SCH ×2 (08:22→11:45)
[2018-01-14] MEDS: DULoxetine 30 MG CAPSULE PO SCH (08:23)
[2018-01-14] MEDS: LISINOPRIL 10 MG TABLET PO SCH (08:23)
[2018-01-14] MEDS: GLIMEPIRIDE 2 MG TABLET PO SCH (08:23)
[2018-01-14] MEDS: INSULIN NPH/REGULAR 70/30 100 UNIT/ML SUBCUT SCH (08:23)
[2018-01-14] MEDS: amLODIPine 5 MG TABLET PO SCH (08:23)
[2018-01-14] MEDS: PANTOPRAZOLE 40 MG TABLET PO SCH (08:23)
[2018-01-14] MEDS: GABAPENTIN 100 MG CAPSULE PO SCH (08:23)
[2018-01-14] MEDS: SODIUM CHLORIDE 0.9% 1,000 ML IV SCH (11:46)
[2018-01-14 12:53] VITALS: BP 163/90
== END 2018-01-14 12:53 | disposition home or self-care (01) | DRG 638 ==
LOC: SUATTDRO → N.ED 02:43 → N.EDINP 04:52 → SUATTDRO 04:52 → N.ICU 07:26 → N.5E 01-13 13:51
PROVIDERS: ADMIT Internal Medicine; ATTEND Family Medicine

== ENCOUNTER 2018-06-18 14:24 | Inpatient (IN) ==
[2018-06-18] MEDS ORDERED: SODIUM CHLORIDE 0.9% 1,000 ML IV STA ×2 (14:45→16:14)
[2018-06-18] MEDS ORDERED: ONDANSETRON 4 MG/2 ML VIAL IV STA (14:45)
[2018-06-18 15:04] LABS: Basophils % 0.2 % (0.0-0.8); Eosinophils % 0.4 % (0.00-10.9); Hematocrit 43.1 VOL% (42.0-52.0); Hemoglobin 14.1 GM/DL (14.0-18.0); Immature Granulocytes % 0.2 %; Immature Granulocytes Absolute 0.02 #; Lymphocytes # 0.7 10*3/uL (1.4-4.0); Mean Corpuscular HGB Conc 32.7 GM/DL (32-36); Mean Corpuscular Hemoglobin 29 PG (27-34); Mean Corpuscular Volume 88.9 FL (87-102); Mean Platelet Volume 10.3 FL (9.6-12.0); Monocytes # 0.4 10*3/uL (0.11-0.8); Monocytes % 4.8 % (1.7-12.7); Neutrophils # 6.9 10*3/uL (1.4-7.4); Neutrophils % 85.4 % (38.7-73.9); Platelet Count 281 T/CUMM (130-400); Red Blood Count 4.85 MC/CUMM (3.8-5.5); Red Cell Distribution Width 13.6 % (9.3-17.3); White Blood Count 8.1 T/CUMM (4-12)
[2018-06-18 15:36] LABS: Albumin 4.1 G/DL (3.4-5.0); Bilirubin,Total 0.9 MG/DL (0.2-1.0); Osmolality,Calculated 301.4 MOS/KG (273-304); Potassium 5.1 MMOL/L (3.5-5.1); Total Protein 7.6 G/DL (6.4-8.3)
[2018-06-18 15:39] LABS: Calcium 8.8 MG/DL (8.5-10.1)
[2018-06-18] MEDS ORDERED: INSULIN REGULAR 100 UNIT/ML IV STA (15:42)
[2018-06-18 15:56] LABS: Apearance,Urine CLEAR (Clear); Bilirubin,Urine Negative (Negative); Blood, Urine Negative (Negative); Glucose,Urine (UA) >=500 mg/dL (Negative); Ketones,Urine 80 mg/dL (Negative); Nitrite,Urine Negative (Negative); Protein,Urine Negative; RBC,Urine 1 /HPF (0-4); Urine Color Colorless (Yellow); Urine Specific Gravity 1.024 (1.001-1.035); Urine Urobilinogen < 2.0 EU/DL (0.2-1.0); WBC,Urine <1 /HPF (0-6)
[2018-06-18 16:04] LABS: Barbiturates Screen,Urine Negative (Negative); Benzodiazepines Screen,Urine Positive (Negative); Cannabinoid Screen,Urine Negative (Negative); Opiate Screen,Urine Negative (Negative); Phencyclidine Screen,Urine Negative (Negative)
[2018-06-18] MEDS: SODIUM CHLORIDE 0.9% 1,000 ML IV ONE ×2 (16:17→17:15)
[2018-06-18] MEDS ORDERED: INSULIN REGULAR 100 UNIT/ML IV ONE (16:29)
[2018-06-18] MEDS ORDERED: ONDANSETRON 4 MG/2 ML VIAL IV PRN (16:29)
[2018-06-18] MEDS ORDERED: ALBUTEROL 2.5 MG/3 ML NEB RESP TX PRN (16:29)
[2018-06-18] MEDS ORDERED: NICOTINE 21 MG/24 HR PATCH TRANSDERM PRN (16:29)
[2018-06-18] MEDS ORDERED: SODIUM BICARB INJ 100 MEQ in STERILE WATER INJ 400 ML IV PRN (16:29)
[2018-06-18] MEDS ORDERED: SODIUM PHOSPHATE IV PRN (16:29)
[2018-06-18] MEDS ORDERED: SODIUM CHLORIDE 0.9% IV PRN (16:29)
[2018-06-18] MEDS ORDERED: DEXTROSE 50% 25 GM/50 ML SYRINGE IV PRN ×2 (16:29)
[2018-06-18] MEDS ORDERED: INSULIN REGULAR DRIP 100 ML IV SCH (16:30)
[2018-06-18] MEDS ORDERED: MAGNESIUM SULF RIDER 2 GM in PREMIX 1 EACH IV PRN (16:36)
[2018-06-18] MEDS ORDERED: MAGNESIUM SULF RIDER 4 GM in PREMIX 1 EACH IV PRN (16:36)
[2018-06-18] MEDS ORDERED: POTASSIUM CHLORIDE RIDER 10 MEQ in PREMIX 1 EACH IV PRN (16:36)
[2018-06-18 17:31] LABS: ABG PCO2 41.8 MM HG (35-48); ABG PH 7.327 (7.35-7.45); ABG PO2 86.7 MM HG (80-95); ABG TCO2 19.2 MMOL/L (23-27); Allen Test Positive; Pt O2 Delivery Device Room Air
[2018-06-18 18:32] LABS: Apearance,Urine CLEAR (Clear); Bacteria,Urine Occasional /HPF (Few); Bilirubin,Urine Negative (Negative); Blood, Urine Small mg/dL (Negative); Glucose,Urine (UA) >=500 mg/dL (Negative); Ketones,Urine 20 mg/dL (Negative); Nitrite,Urine Negative (Negative); Protein,Urine Negative; RBC,Urine 1 /HPF (0-4); Urine Color Straw (Yellow); Urine Specific Gravity 1.027 (1.001-1.035); Urine Urobilinogen < 2.0 EU/DL (0.2-1.0); WBC,Urine 1 /HPF (0-6)
[2018-06-18] MEDS: SODIUM CHLORIDE 0.9% 1,000 ML IV SCH ×2 (18:33→21:35)
[2018-06-18 18:41] LABS: Calcium 7.9 MG/DL (8.5-10.1); Osmolality,Calculated 291.8 MOS/KG (273-304); Potassium 4.6 MMOL/L (3.5-5.1)
[2018-06-18] MEDS: ENOXAPARIN 40 MG/0.4 ML SYRINGE SUBCUT SCH (20:26)
[2018-06-18] MEDS ORDERED: SODIUM CHLORIDE 0.9% 1,000 ML IV SCH (21:29)
[2018-06-18] MEDS: DEXTROSE 5% NACL 0.9% 1,000 ML IV SCH (22:16)
[2018-06-18 22:28] LABS: Calcium 7.4 MG/DL (8.5-10.1); Osmolality,Calculated 285.3 MOS/KG (273-304); Potassium 3.7 MMOL/L (3.5-5.1)
[2018-06-19 01:54] LABS: Calcium 7.2 MG/DL (8.5-10.1); Osmolality,Calculated 288.7 MOS/KG (273-304); Potassium 3.2 MMOL/L (3.5-5.1)
[2018-06-19] MEDS: DEXT 5% NACL 0.45% KCL 40 MEQ 40 MEQ/1,000 ML BAG IV SCH ×2 (02:22→06:31)
[2018-06-19 05:23] LABS: Basophils % 0.2 % (0.0-0.8); Eosinophils # 0.1 10*3/uL (0.0-0.87); Eosinophils % 0.8 % (0.00-10.9); Hematocrit 35.2 VOL% (42.0-52.0); Hemoglobin 11.5 GM/DL (14.0-18.0); Immature Granulocytes % 0.4 %; Immature Granulocytes Absolute 0.03 #; Lymphocytes # 1.6 10*3/uL (1.4-4.0); Lymphocytes % 19.6 % (21.2-54.2); Mean Corpuscular HGB Conc 32.7 GM/DL (32-36); Mean Corpuscular Hemoglobin 29 PG (27-34); Mean Corpuscular Volume 88.7 FL (87-102); Mean Platelet Volume 10.3 FL (9.6-12.0); Monocytes # 0.7 10*3/uL (0.11-0.8); Monocytes % 8.8 % (1.7-12.7); Neutrophils # 5.8 10*3/uL (1.4-7.4); Neutrophils % 70.2 % (38.7-73.9); Platelet Count 240 T/CUMM (130-400); Red Blood Count 3.97 MC/CUMM (3.8-5.5); Red Cell Distribution Width 13.9 % (9.3-17.3); White Blood Count 8.3 T/CUMM (4-12)
[2018-06-19 05:47] LABS: Albumin 2.7 G/DL (3.4-5.0); Bilirubin,Total 0.9 MG/DL (0.2-1.0); Calcium 7.4 MG/DL (8.5-10.1); Osmolality,Calculated 289.1 MOS/KG (273-304); Potassium 3.7 MMOL/L (3.5-5.1); Total Protein 5.4 G/DL (6.4-8.3)
[2018-06-19] MEDS: SODIUM CHLORIDE 0.45% 1,000 ML IV SCH ×3 (07:18→11:24)
[2018-06-19] MEDS: DEXTROSE 5% NACL 0.9% 1,000 ML IV SCH (07:21)
[2018-06-19] MEDS: PANTOPRAZOLE 40 MG TABLET PO SCH (08:23)
[2018-06-19] MEDS ORDERED: PNEUMOCOCCAL VACCINE (13 VALENT) 0.5 ML SYRINGE IM ONE (09:00)
[2018-06-19 09:17] LABS: Calcium 7.8 MG/DL (8.5-10.1); Osmolality,Calculated 283.8 MOS/KG (273-304); Potassium 3.7 MMOL/L (3.5-5.1)
[2018-06-19] MEDS: INSULIN REGULAR 100 UNIT/ML SUBCUT SCH ×3 (11:21→20:20)
[2018-06-19] MEDS: INSULIN NPH/REGULAR 70/30 100 UNIT/ML SUBCUT SCH ×2 (11:23→16:42)
[2018-06-19] MEDS: ENOXAPARIN 40 MG/0.4 ML SYRINGE SUBCUT SCH (20:21)
[2018-06-20 05:33] LABS: Albumin 2.9 G/DL (3.4-5.0); Bilirubin,Total 0.7 MG/DL (0.2-1.0); Osmolality,Calculated 285.3 MOS/KG (273-304); Potassium 3.8 MMOL/L (3.5-5.1)
[2018-06-20] MEDS ORDERED: ACETAMINOPHEN 500 MG TABLET PO PRN (06:24)
[2018-06-20] MEDS: INSULIN REGULAR 100 UNIT/ML SUBCUT SCH ×3 (09:07→12:09)
[2018-06-20] MEDS: PANTOPRAZOLE 40 MG TABLET PO SCH (09:09)
[2018-06-20] MEDS: INSULIN NPH/REGULAR 70/30 100 UNIT/ML SUBCUT SCH (09:11)
[2018-06-20 12:06] VITALS: BP 155/99
[2018-06-20] MEDS ORDERED: POLYMYXIN/TRIMETHOPRIM OPH SOL 10 ML BOTTLE LEFT EYE SCH (17:00)
== END 2018-06-20 15:15 | DRG 638 ==
LOC: N.ED 14:24 → SUATTDRO 16:29 → N.EDINP 16:29 → N.ICU 17:23 → N.4E 06-19 15:42
PROVIDERS: ADMIT Internal Medicine; ATTEND Internal Medicine Geriatric Medicine

== ENCOUNTER 2018-07-11 18:15 | Inpatient (IN) ==
[2018-07-11] MEDS ORDERED: SODIUM BICARB INJ 100 MEQ in STERILE WATER INJ 400 ML IV PRN ×2 (19:07→20:54)
[2018-07-11] MEDS ORDERED: SODIUM CHLORIDE 0.9% 1,000 ML IV STA ×2 (19:10→19:49)
[2018-07-11] MEDS ORDERED: ONDANSETRON 4 MG/2 ML VIAL IV STA (19:10)
[2018-07-11] MEDS ORDERED: INSULIN REGULAR 100 UNIT/ML IV STA (19:11)
[2018-07-11 19:21] LABS: Basophils % 0.2 % (0.0-0.8); Eosinophils % 0.1 % (0.00-10.9); Hematocrit 41.4 VOL% (42.0-52.0); Hemoglobin 13.5 GM/DL (14.0-18.0); Immature Granulocytes % 0.7 %; Immature Granulocytes Absolute 0.09 #; Lymphocytes # 1.1 10*3/uL (1.4-4.0); Lymphocytes % 8.8 % (21.2-54.2); Mean Corpuscular HGB Conc 32.6 GM/DL (32-36); Mean Corpuscular Hemoglobin 29 PG (27-34); Mean Corpuscular Volume 87.9 FL (87-102); Mean Platelet Volume 10.6 FL (9.6-12.0); Monocytes # 0.8 10*3/uL (0.11-0.8); Monocytes % 6.3 % (1.7-12.7); Neutrophils # 10.6 10*3/uL (1.4-7.4); Neutrophils % 83.9 % (38.7-73.9); Platelet Count 309 T/CUMM (130-400); Red Blood Count 4.71 MC/CUMM (3.8-5.5); Red Cell Distribution Width 13.2 % (9.3-17.3); White Blood Count 12.6 T/CUMM (4-12)
[2018-07-11 19:30] LABS: VBG Base Excess -8.5 MEQ/L (0-4); VBG HCO3 17.5 MEQ/L (24-28); VBG PCO2 33.8 MMHG (41-51); VBG PH 7.307; VBG PO2 60.4 MMHG (17-40)
[2018-07-11 19:40] LABS: Apearance,Urine CLEAR (Clear); Bacteria,Urine Occasional /HPF (Few); Bilirubin,Urine Negative (Negative); Blood, Urine Negative (Negative); Glucose,Urine (UA) >=500 mg/dL (Negative); Ketones,Urine 80 mg/dL (Negative); Mucus,Urine Occasional /LPF (Occasional); Nitrite,Urine Negative (Negative); Protein,Urine Negative; Urine Color Colorless (Yellow); Urine Specific Gravity 1.022 (1.001-1.035); Urine Urobilinogen < 2.0 EU/DL (0.2-1.0); WBC,Urine 1 /HPF (0-6)
[2018-07-11 19:41] LABS: Albumin 4.4 G/DL (3.4-5.0); Bilirubin,Total 1.4 MG/DL (0.2-1.0); Calcium 9.6 MG/DL (8.5-10.1); Osmolality,Calculated 300.4 MOS/KG (273-304); Potassium 5.3 MMOL/L (3.5-5.1); Total Protein 8.3 G/DL (6.4-8.3)
[2018-07-11] MEDS ORDERED: INSULIN REGULAR DRIP 100 ML IV PRN (19:46)
[2018-07-11 20:01] LABS: Barbiturates Screen,Urine Negative (Negative); Benzodiazepines Screen,Urine Negative (Negative); Cannabinoid Screen,Urine Negative (Negative); Opiate Screen,Urine Negative (Negative); Phencyclidine Screen,Urine Negative (Negative)
[2018-07-11] MEDS ORDERED: MAGNESIUM SULF RIDER 2 GM in PREMIX 1 EACH IV PRN (20:54)
[2018-07-11] MEDS ORDERED: ONDANSETRON 4 MG/2 ML VIAL IV PRN (20:54)
[2018-07-11] MEDS ORDERED: DEXTROSE 50% 25 GM/50 ML SYRINGE IV PRN (20:54)
[2018-07-11] MEDS ORDERED: MAGNESIUM SULF RIDER 4 GM in PREMIX 1 EACH IV PRN (20:54)
[2018-07-11] MEDS ORDERED: ACETAMINOPHEN 325 MG TABLET PO PRN (20:54)
[2018-07-11] MEDS ORDERED: SODIUM CHLORIDE 0.9% 1,000 ML IV ONE (20:54)
[2018-07-11] MEDS ORDERED: GLUCAGON 1 MG VIAL IM PRN (20:54)
[2018-07-11] MEDS ORDERED: POTASSIUM CHLORIDE RIDER 10 MEQ in PREMIX 1 EACH IV PRN (20:54)
[2018-07-11] MEDS ORDERED: SODIUM PHOSPHATE INJ 17 MMOL in SODIUM CHLORIDE 0.9% 250 ML IV PRN (20:54)
[2018-07-11] MEDS ORDERED: DEXTROSE 50% 25 GM/50 ML VIAL IV PRN ×2 (20:54)
[2018-07-11] MEDS ORDERED: INSULIN REGULAR 100 UNIT/ML IV ONE (20:54)
[2018-07-11] MEDS ORDERED: ENOXAPARIN 40 MG/0.4 ML SYRINGE SUBCUT SCH (21:00)
[2018-07-11] MEDS ORDERED: INSULIN REGULAR DRIP 100 ML IV SCH (21:00)
[2018-07-11] MEDS ORDERED: SODIUM CHLORIDE 0.9% 1,000 ML IV SCH ×3 (21:00→23:28)
[2018-07-11 22:34] LABS: Basophils % 0.1 % (0.0-0.8); Hematocrit 36.7 VOL% (42.0-52.0); Hemoglobin 11.9 GM/DL (14.0-18.0); Immature Granulocytes % 0.7 %; Immature Granulocytes Absolute 0.13 #; Lymphocytes % 5.6 % (21.2-54.2); Mean Corpuscular HGB Conc 32.4 GM/DL (32-36); Mean Corpuscular Hemoglobin 29 PG (27-34); Mean Corpuscular Volume 88.2 FL (87-102); Mean Platelet Volume 10.3 FL (9.6-12.0); Monocytes % 5.3 % (1.7-12.7); Neutrophils # 15.7 10*3/uL (1.4-7.4); Neutrophils % 88.3 % (38.7-73.9); Platelet Count 268 T/CUMM (130-400); Red Blood Count 4.16 MC/CUMM (3.8-5.5); Red Cell Distribution Width 13.2 % (9.3-17.3); White Blood Count 17.8 T/CUMM (4-12)
[2018-07-11 22:59] LABS: Calcium 8.2 MG/DL (8.5-10.1); Osmolality,Calculated 301.8 MOS/KG (273-304); Potassium 4.5 MMOL/L (3.5-5.1)
[2018-07-11] MEDS ORDERED: ALUMINUM/MAGNES/SIMETH MAX STR 30 ML UDCUP PO PRN (23:33)
[2018-07-11 23:46] LABS: Apearance,Urine CLEAR (Clear); Bilirubin,Urine Negative (Negative); Blood, Urine Negative (Negative); Glucose,Urine (UA) >=500 mg/dL (Negative); Hyaline Casts,Urine 1 /LPF (0-3); Ketones,Urine 80 mg/dL (Negative); Nitrite,Urine Negative (Negative); Protein,Urine Negative; RBC,Urine 1 /HPF (0-4); Urine Color Colorless (Yellow); Urine Specific Gravity 1.017 (1.001-1.035); Urine Urobilinogen < 2.0 EU/DL (0.2-1.0); WBC,Urine 1 /HPF (0-6)
[2018-07-12 01:11] LABS: Calcium 7.9 MG/DL (8.5-10.1); Osmolality,Calculated 295.3 MOS/KG (273-304)
[2018-07-12] MEDS ORDERED: SODIUM CHLORIDE 0.9% 1,000 ML IV SCH (01:55)
[2018-07-12] MEDS: SODIUM CHLOR 0.45% KCL 20 MEQ 20 MEQ/1,000 ML BAG IV SCH ×2 (02:46→07:22)
[2018-07-12] MEDS: DEXT 5% NACL 0.45% KCL 20 MEQ 20 MEQ/1,000 ML BAG IV SCH ×2 (04:49→09:18)
[2018-07-12 05:52] LABS: Calcium 8.1 MG/DL (8.5-10.1); Osmolality,Calculated 284.3 MOS/KG (273-304); Potassium 3.8 MMOL/L (3.5-5.1)
[2018-07-12 07:48] LABS: Basophils % 0.2 % (0.0-0.8); Eosinophils # 0.1 10*3/uL (0.0-0.87); Eosinophils % 0.5 % (0.00-10.9); Hematocrit 35.1 VOL% (42.0-52.0); Hemoglobin 11.6 GM/DL (14.0-18.0); Immature Granulocytes % 0.3 %; Immature Granulocytes Absolute 0.04 #; Lymphocytes # 2.6 10*3/uL (1.4-4.0); Lymphocytes % 20.2 % (21.2-54.2); Mean Corpuscular Hemoglobin 29 PG (27-34); Mean Platelet Volume 10.4 FL (9.6-12.0); Monocytes # 1.1 10*3/uL (0.11-0.8); Monocytes % 8.6 % (1.7-12.7); Neutrophils % 70.2 % (38.7-73.9); Platelet Count 271 T/CUMM (130-400); Red Blood Count 3.99 MC/CUMM (3.8-5.5); Red Cell Distribution Width 13.5 % (9.3-17.3); White Blood Count 12.8 T/CUMM (4-12)
[2018-07-12] MEDS ORDERED: PANTOPRAZOLE 40 MG TABLET PO SCH (09:00)
[2018-07-12] MEDS ORDERED: DULoxetine 30 MG CAPSULE PO SCH (09:00)
[2018-07-12] MEDS ORDERED: LISINOPRIL 20 MG TABLET PO SCH (09:00)
[2018-07-12] MEDS ORDERED: rOPINIRole 4 MG TABLET PO SCH (09:00)
[2018-07-12] MEDS ORDERED: ROSUVASTATIN 10 MG TABLET PO SCH (09:00)
[2018-07-12 09:44] LABS: Calcium 8.2 MG/DL (8.5-10.1); Osmolality,Calculated 285.5 MOS/KG (273-304); Potassium 4.3 MMOL/L (3.5-5.1)
[2018-07-12] MEDS ORDERED: INSULIN NPH/REGULAR 70/30 100 UNIT/ML SUBCUT SCH ×2 (10:00→16:30)
[2018-07-12] MEDS ORDERED: INSULIN REGULAR 100 UNIT/ML SUBCUT SCH (11:30)
[2018-07-12 12:17] VITALS: BP 126/67
[2018-07-12] MEDS ORDERED: SODIUM CHLORIDE 0.45% 1,000 ML IV SCH (13:55)
== END 2018-07-12 12:33 | disposition home or self-care (01) | DRG 639 ==
LOC: N.ED 18:15 → N.EDINP 20:54 → N.ICU 23:13
PROVIDERS: ADMIT Internal Medicine; ATTEND Internal Medicine

== ENCOUNTER 2019-02-21 08:03 | Observation (INO) ==
[2019-02-21] MEDS ORDERED: DEXTROSE 5% NACL 0.9% 1,000 ML IV SCH (09:00)
[2019-02-21 09:03] LABS: Basophils % 0.2 % (0.0-0.8); Eosinophils # 0.1 10*3/uL (0.0-0.87); Eosinophils % 0.5 % (0.00-10.9); Hematocrit 39.5 VOL% (42.0-52.0); Hemoglobin 12.8 GM/DL (14.0-18.0); Immature Granulocytes % 0.6 %; Immature Granulocytes Absolute 0.06 #; Lymphocytes # 0.9 10*3/uL (1.4-4.0); Mean Corpuscular HGB Conc 32.4 GM/DL (32-36); Mean Platelet Volume 9.6 FL (9.6-12.0); Monocytes % 7.5 % (1.7-12.7); Neutrophils % 82.2 % (38.7-73.9); Platelet Count 277 T/CUMM (130-400); Red Blood Count 4.39 MC/CUMM (3.8-5.5); Red Cell Distribution Width 13.4 % (9.3-17.3); White Blood Count 10.1 T/CUMM (4-12)
[2019-02-21 09:12] LABS: Apearance,Urine CLEAR (Clear); Bilirubin,Urine Negative (Negative); Blood, Urine Negative (Negative); Glucose,Urine (UA) >=500 mg/dL (Negative); Ketones,Urine Negative (Negative); Nitrite,Urine Negative (Negative); Protein,Urine Negative; RBC,Urine 4 /HPF (0-4); Urine Color Straw (Yellow); Urine Urobilinogen < 2.0 EU/DL (0.2-1.0); WBC,Urine 41 /HPF (0-6)
[2019-02-21 09:19] LABS: Barbiturates Screen,Urine Negative (Negative); Benzodiazepines Screen,Urine Negative (Negative); Cannabinoid Screen,Urine Negative (Negative); Opiate Screen,Urine Negative (Negative); Phencyclidine Screen,Urine Negative (Negative)
[2019-02-21 09:26] LABS: Alanine Aminotransferase 25 U/L (16-61); Albumin 3.5 G/DL (3.4-5.0); Alkaline Phosphatase 123 U/L (45-117); Aspartate Amino Transferase 21 U/L (0-37); Blood Urea Nitrogen 14 MG/DL (7-18); Calcium 8.6 MG/DL (8.5-10.1); Estimated Glom Filtration Rate 93 ML/MIN; Glucose 122 MG/DL (74-106); Total Protein 7.1 G/DL (6.4-8.3)
[2019-02-21] MEDS ORDERED: cefTRIAXone 1,000 MG in SODIUM CHLORIDE 0.9% 100 ML IV STA (10:39)
[2019-02-21] MEDS ORDERED: cefTRIAXone 1,000 MG in SYRINGE 1 EACH IV STA (11:01)
[2019-02-21] MEDS ORDERED: SODIUM CHLORIDE 0.9% 100 ML IV ONE (11:13)
[2019-02-21] MEDS ORDERED: ONDANSETRON 4 MG/2 ML VIAL IV PRN (12:14)
[2019-02-21] MEDS ORDERED: GLUCAGON 1 MG VIAL IM PRN (12:14)
[2019-02-21] MEDS ORDERED: ACETAMINOPHEN 325 MG TABLET PO PRN (12:14)
[2019-02-21] MEDS ORDERED: DEXTROSE 50% 25 GM/50 ML VIAL IV PRN (12:14)
[2019-02-21] MEDS: POTASSIUM CHLORIDE 20 MEQ TABLET PO PRN ×3 (16:08→21:24)
[2019-02-21] MEDS: INSULIN LISPRO 100 UNIT/ML SUBCUT SCH ×2 (16:35→21:25)
[2019-02-22 05:13] LABS: Basophils % 0.2 % (0.0-0.8); Eosinophils # 0.1 10*3/uL (0.0-0.87); Eosinophils % 0.8 % (0.00-10.9); Hemoglobin 13.6 GM/DL (14.0-18.0); Immature Granulocytes % 0.6 %; Immature Granulocytes Absolute 0.04 #; Lymphocytes # 1.3 10*3/uL (1.4-4.0); Lymphocytes % 19.4 % (21.2-54.2); Mean Corpuscular HGB Conc 32.4 GM/DL (32-36); Mean Corpuscular Volume 90.9 FL (87-102); Mean Platelet Volume 9.9 FL (9.6-12.0); Monocytes % 9.6 % (1.7-12.7); Neutrophils % 69.4 % (38.7-73.9); Platelet Count 307 T/CUMM (130-400); Red Blood Count 4.62 MC/CUMM (3.8-5.5); Red Cell Distribution Width 13.4 % (9.3-17.3); White Blood Count 6.7 T/CUMM (4-12)
[2019-02-22 06:12] LABS: Calcium 9.1 MG/DL (8.5-10.1); Risk Ratio 3.86; Thyroid Stimulating Hormone 1.19 uIU/ml (0.358-3.74)
[2019-02-22] MEDS: INSULIN LISPRO 100 UNIT/ML SUBCUT SCH ×3 (08:48→15:50)
[2019-02-22] MEDS ORDERED: LISINOPRIL 20 MG TABLET PO SCH (09:00)
[2019-02-22] MEDS ORDERED: PANTOPRAZOLE 40 MG TABLET PO SCH (09:00)
[2019-02-22] MEDS ORDERED: rOPINIRole 1 MG TABLET PO SCH (09:00)
[2019-02-22] MEDS ORDERED: ROSUVASTATIN 10 MG TABLET PO SCH (09:00)
[2019-02-22] MEDS ORDERED: DULoxetine 30 MG CAPSULE PO SCH (09:00)
[2019-02-22 15:27] VITALS: BP 125/58
== END 2019-02-22 16:46 | disposition home health service (06) ==
LOC: N.ED 08:03 → N.EDINP 10:49 → OBSVTOIN 10:49 → INTOOBSV 10:49 → N.2E 11:25
PROVIDERS: ADMIT Internal Medicine; ATTEND Internal Medicine

== ENCOUNTER 2019-10-17 00:36 | Inpatient (IN) ==
[2019-10-17] MEDS ORDERED: SODIUM CHLORIDE 0.9% 2,000 ML IV STA (01:03)
[2019-10-17] MEDS ORDERED: INSULIN REGULAR 100 UNIT/ML IV ONE (01:03)
[2019-10-17 01:28] LABS: PT Patient Result 10.9 SECS (9.8-11.9); Partial Thromboplastin Time 25.6 SECS (23.9-33.8)
[2019-10-17 01:29] LABS: Alanine Aminotransferase 39 U/L (16-61); Albumin 3.5 G/DL (3.4-5.0); Alkaline Phosphatase 178 U/L (45-117); Aspartate Amino Transferase 29 U/L (0-37); Blood Urea Nitrogen 54 MG/DL (7-18); Calcium 8.5 MG/DL (8.5-10.1); Estimated Glom Filtration Rate 16 ML/MIN; Ferritin 260.9 ng/ml (26-388); Osmolality,Calculated 340.1 MOS/KG (273-304); Troponin I 0.045 NG/ML (0.00-0.045)
[2019-10-17 01:32] LABS: Glucose 1338 MG/DL (74-106)
[2019-10-17] MEDS ORDERED: CALCIUM CHLORIDE 1,000 MG/10 ML SYRINGE IV STA (01:32)
[2019-10-17] MEDS ORDERED: ALBUTEROL NEB SOLN 5 MG/ML 20 ML/BOTTLE CONT NEB STA (01:32)
[2019-10-17] MEDS ORDERED: SODIUM BICARBONATE 50 MEQ/50 ML VIAL IV STA ×2 (01:32→02:17)
[2019-10-17 01:37] LABS: Apearance,Urine Slightly Hazy (Clear); Bacteria,Urine Occasional /HPF (Few); Bilirubin,Urine Negative (Negative); Blood, Urine Negative (Negative); Glucose,Urine (UA) >=500 mg/dL (Negative); Ketones,Urine 20 mg/dL (Negative); Mucus,Urine Occasional /LPF (Occasional); Nitrite,Urine Negative (Negative); Protein,Urine Negative; RBC,Urine 1 /HPF (0-4); Urine Color Yellow (Yellow); Urine Specific Gravity 1.021 (1.001-1.035); Urine Urobilinogen < 2.0 EU/DL (0.2-1.0); WBC,Urine 2 /HPF (0-6)
[2019-10-17 01:47] LABS: Basophils # 0.1 10*3/uL (0.0-0.2); Basophils % 0.2 % (0.0-0.8); Hematocrit 46.8 VOL% (42.0-52.0); Hemoglobin 13.2 GM/DL (14.0-18.0); Immature Granulocytes Absolute 0.75 #; Lymphocytes # 1.9 10*3/uL (1.4-4.0); Lymphocytes % 7.7 % (21.2-54.2); Mean Corpuscular HGB Conc 28.2 GM/DL (32-36); Mean Corpuscular Volume 108.6 FL (87-102); Mean Platelet Volume 11.2 FL (9.6-12.0); Neutrophils % 82.1 % (38.7-73.9); Platelet Count 396 T/CUMM (130-400); Red Blood Count 4.31 MC/CUMM (3.8-5.5); Red Cell Distribution Width 13.5 % (9.3-17.3)
[2019-10-17] MEDS ORDERED: INSULIN REGULAR DRIP 100 ML IV PRN (02:19)
[2019-10-17 02:28] LABS: Barbiturates Screen,Urine Negative (Negative); Benzodiazepines Screen,Urine Negative (Negative); Cannabinoid Screen,Urine Negative (Negative); Opiate Screen,Urine Negative (Negative); Phencyclidine Screen,Urine Negative (Negative)
[2019-10-17] MEDS ORDERED: SODIUM CHLORIDE 0.9% 1,000 ML IV STA (03:38)
[2019-10-17 04:46] LABS: Anisocytosis 1+; Band Neutrophils 1 % (0-10); Lymphocytes 6 % (20-55); Macrocytosis 1+; Platelet Estimate Normal; Segmented Neutrophils 88 % (50-85); Total Cells Counted 100
[2019-10-17 06:58] LABS: ABG Base Excess -13.8 MMOL/L (-2.5-2.5); ABG HCO3 10.9 MMOL/L (20-26); ABG Oxygen Saturation 97.5 % (95-100); ABG PCO2 23.3 MM HG (35-48); ABG PH 7.289 (7.35-7.45); ABG PO2 104.4 MM HG (80-95); ABG TCO2 11.6 MMOL/L (23-27)
[2019-10-17] MEDS ORDERED: ONDANSETRON 4 MG/2 ML VIAL IV PRN (08:48)
[2019-10-17] MEDS ORDERED: ENOXAPARIN 30 MG/0.3 ML SYRINGE SUBCUT SCH (08:48)
[2019-10-17] MEDS ORDERED: MORPHINE 4 MG/1 ML VIAL IV PRN (08:48)
[2019-10-17 09:06] LABS: Calcium 8.8 MG/DL (8.5-10.1)
[2019-10-17] MEDS: SODIUM CHLORIDE 0.9% 1,000 ML IV SCH ×2 (09:16→13:10)
[2019-10-17] MEDS: PANTOPRAZOLE 40 MG VIAL IV SCH ×2 (09:34→20:21)
[2019-10-17 15:17] LABS: Calcium 8.5 MG/DL (8.5-10.1); Osmolality,Calculated 322.3 MOS/KG (273-304)
[2019-10-17] MEDS ORDERED: DEXTROSE 10% 250 ML BAG IV PRN (16:28)
[2019-10-17] MEDS ORDERED: GLUCAGON 1 MG VIAL IM PRN (16:28)
[2019-10-17] MEDS: SODIUM CHLORIDE 0.45% 1,000 ML IV SCH (16:57)
[2019-10-17] MEDS: INSULIN NPH 100 UNIT/ML SUBCUT SCH (16:57)
[2019-10-17] MEDS ORDERED: INSULIN LISPRO 100 UNIT/ML SUBCUT SCH (18:00)
[2019-10-17] MEDS: INSULIN LISPRO 100 UNIT/ML SUBCUT SCH (20:20)
[2019-10-17 21:46] LABS: Calcium 5.9 MG/DL (8.5-10.1)
[2019-10-17 22:37] LABS: Calcium 7.5 MG/DL (8.5-10.1); Osmolality,Calculated 311.1 MOS/KG (273-304)
[2019-10-18] MEDS: INSULIN LISPRO 100 UNIT/ML SUBCUT SCH ×6 (00:42→20:38)
[2019-10-18] MEDS: SODIUM CHLORIDE 0.45% 1,000 ML IV SCH ×4 (00:43→09:19)
[2019-10-18 04:31] LABS: Calcium 8.2 MG/DL (8.5-10.1); Osmolality,Calculated 312.6 MOS/KG (273-304)
[2019-10-18] MEDS: ENOXAPARIN 40 MG/0.4 ML SYRINGE SUBCUT SCH (08:33)
[2019-10-18] MEDS: INSULIN NPH 100 UNIT/ML SUBCUT SCH ×2 (08:33→16:13)
[2019-10-18] MEDS: PANTOPRAZOLE 40 MG VIAL IV SCH ×2 (08:33→20:20)
[2019-10-18 09:55] LABS: Calcium 7.9 MG/DL (8.5-10.1); Osmolality,Calculated 303.6 MOS/KG (273-304)
[2019-10-18 15:33] LABS: Calcium 8.2 MG/DL (8.5-10.1)
[2019-10-18] MEDS ORDERED: POTASSIUM CHLORIDE 20 MEQ TABLET PO ONE ×3 (15:41→21:00)
[2019-10-18 19:20] LABS: Basophils % 0.1 % (0.0-0.8); Eosinophils % 0.2 % (0.00-10.9); Hematocrit 34.2 VOL% (42.0-52.0); Hemoglobin 11.6 GM/DL (14.0-18.0); Immature Granulocytes % 0.7 %; Immature Granulocytes Absolute 0.09 #; Lymphocytes # 1.3 10*3/uL (1.4-4.0); Lymphocytes % 10.4 % (21.2-54.2); Mean Corpuscular HGB Conc 33.9 GM/DL (32-36); Mean Corpuscular Volume 89.5 FL (87-102); Mean Platelet Volume 9.7 FL (9.6-12.0); Monocytes % 6.5 % (1.7-12.7); Neutrophils % 82.1 % (38.7-73.9); Platelet Count 185 T/CUMM (130-400); Red Blood Count 3.82 MC/CUMM (3.8-5.5); Red Cell Distribution Width 13.9 % (9.3-17.3); White Blood Count 12.2 T/CUMM (4-12)
[2019-10-19] MEDS: INSULIN LISPRO 100 UNIT/ML SUBCUT SCH ×4 (00:36→13:04)
[2019-10-19 06:13] LABS: Basophils % 0.1 % (0.0-0.8); Eosinophils % 0.1 % (0.00-10.9); Hematocrit 39.2 VOL% (42.0-52.0); Hemoglobin 13.2 GM/DL (14.0-18.0); Immature Granulocytes % 0.8 %; Immature Granulocytes Absolute 0.08 #; Lymphocytes # 1.3 10*3/uL (1.4-4.0); Lymphocytes % 12.2 % (21.2-54.2); Mean Corpuscular HGB Conc 33.7 GM/DL (32-36); Mean Corpuscular Volume 89.3 FL (87-102); Mean Platelet Volume 9.8 FL (9.6-12.0); Monocytes % 8.7 % (1.7-12.7); Neutrophils % 78.1 % (38.7-73.9); Platelet Count 176 T/CUMM (130-400); Red Blood Count 4.39 MC/CUMM (3.8-5.5); Red Cell Distribution Width 14.3 % (9.3-17.3); White Blood Count 10.4 T/CUMM (4-12)
[2019-10-19 06:37] LABS: Calcium 8.5 MG/DL (8.5-10.1); Osmolality,Calculated 288.1 MOS/KG (273-304)
[2019-10-19] MEDS: INSULIN NPH 100 UNIT/ML SUBCUT SCH (08:35)
[2019-10-19] MEDS: PANTOPRAZOLE 40 MG VIAL IV SCH (09:12)
[2019-10-19] MEDS: ENOXAPARIN 40 MG/0.4 ML SYRINGE SUBCUT SCH (09:12)
[2019-10-19] MEDS: INSULIN REGULAR 100 UNIT/ML SUBCUT SCH ×2 (17:06→20:49)
[2019-10-19] MEDS: PHENAZOPYRIDINE 95 MG TABLET PO SCH (17:07)
[2019-10-19] MEDS: INSULIN NPH/REGULAR 70/30 100 UNIT/ML SUBCUT SCH (17:28)
[2019-10-20] MEDS: PHENAZOPYRIDINE 95 MG TABLET PO SCH ×3 (09:06→17:17)
[2019-10-20] MEDS: INSULIN NPH/REGULAR 70/30 100 UNIT/ML SUBCUT SCH ×2 (09:06→17:16)
[2019-10-20] MEDS: INSULIN REGULAR 100 UNIT/ML SUBCUT SCH ×4 (09:06→20:10)
[2019-10-20] MEDS: ENOXAPARIN 40 MG/0.4 ML SYRINGE SUBCUT SCH (09:07)
[2019-10-20] MEDS: FAMOTIDINE 20 MG TABLET PO SCH (09:07)
[2019-10-21] MEDS: PHENAZOPYRIDINE 95 MG TABLET PO SCH ×3 (09:26→16:56)
[2019-10-21] MEDS: INSULIN REGULAR 100 UNIT/ML SUBCUT SCH ×3 (09:27→16:39)
[2019-10-21] MEDS: FAMOTIDINE 20 MG TABLET PO SCH (09:27)
[2019-10-21] MEDS: INSULIN NPH/REGULAR 70/30 100 UNIT/ML SUBCUT SCH (09:28)
[2019-10-21] MEDS: ENOXAPARIN 40 MG/0.4 ML SYRINGE SUBCUT SCH (09:28)
[2019-10-21] MEDS: ACETAMINOPHEN 325 MG TABLET PO PRN (09:38)
[2019-10-21] MEDS ORDERED: INSULIN NPH/REGULAR 70/30 100 UNIT/ML SUBCUT SCH ×2 (10:18→17:00)
[2019-10-21] MEDS ORDERED: INSULIN REGULAR 100 UNIT/ML SUBCUT ONE (11:44)
[2019-10-21] MEDS ORDERED: SODIUM CHLORIDE 0.9% 500 ML IV ONE (11:44)
[2019-10-21] MEDS ORDERED: INSULIN NPH/REGULAR 70/30 100 UNIT/ML SUBCUT ONE (11:45)
[2019-10-21] MEDS: IBUPROFEN 800 MG TABLET PO PRN (23:00)
[2019-10-22] MEDS: INSULIN REGULAR 100 UNIT/ML SUBCUT SCH ×3 (08:11→16:16)
[2019-10-22] MEDS: FAMOTIDINE 20 MG TABLET PO SCH (09:22)
[2019-10-22] MEDS: ENOXAPARIN 40 MG/0.4 ML SYRINGE SUBCUT SCH (09:22)
[2019-10-22] MEDS: PHENAZOPYRIDINE 95 MG TABLET PO SCH ×3 (09:22→16:17)
[2019-10-22] MEDS: IBUPROFEN 800 MG TABLET PO PRN ×2 (09:26→17:44)
[2019-10-22] MEDS ORDERED: DEXTROSE 50% 25 GM/50 ML VIAL IV PRN (11:13)
[2019-10-22] MEDS: INSULIN LISPRO 100 UNIT/ML SUBCUT SCH ×3 (11:31→21:49)
[2019-10-22] MEDS ORDERED: INSULIN NPH/REGULAR 70/30 100 UNIT/ML SUBCUT SCH (12:09)
[2019-10-22] MEDS ORDERED: INSULIN NPH/REGULAR 70/30 100 UNIT/ML SUBCUT ONE (12:30)
[2019-10-22] MEDS: INSULIN NPH/REGULAR 70/30 100 UNIT/ML SUBCUT SCH (16:17)
[2019-10-22] MEDS: ACETAMINOPHEN 325 MG TABLET PO PRN (23:40)
[2019-10-23] MEDS: IBUPROFEN 800 MG TABLET PO PRN ×3 (04:36→22:27)
[2019-10-23 06:18] LABS: Basophils % 0.2 % (0.0-0.8); Eosinophils # 0.1 10*3/uL (0.0-0.87); Eosinophils % 0.8 % (0.00-10.9); Hematocrit 39.5 VOL% (42.0-52.0); Hemoglobin 12.9 GM/DL (14.0-18.0); Immature Granulocytes % 3.7 %; Immature Granulocytes Absolute 0.22 #; Lymphocytes # 1.1 10*3/uL (1.4-4.0); Lymphocytes % 18.9 % (21.2-54.2); Mean Corpuscular HGB Conc 32.7 GM/DL (32-36); Mean Corpuscular Volume 91.9 FL (87-102); Mean Platelet Volume 9.9 FL (9.6-12.0); Monocytes % 11.4 % (1.7-12.7); Platelet Count 198 T/CUMM (130-400); Red Cell Distribution Width 13.3 % (9.3-17.3)
[2019-10-23 06:43] LABS: Calcium 8.9 MG/DL (8.5-10.1); Osmolality,Calculated 280.2 MOS/KG (273-304)
[2019-10-23] MEDS: INSULIN REGULAR 100 UNIT/ML SUBCUT SCH (08:55)
[2019-10-23] MEDS: ENOXAPARIN 40 MG/0.4 ML SYRINGE SUBCUT SCH (08:56)
[2019-10-23] MEDS: FAMOTIDINE 20 MG TABLET PO SCH (08:57)
[2019-10-23] MEDS: PHENAZOPYRIDINE 95 MG TABLET PO SCH ×3 (08:57→17:16)
[2019-10-23] MEDS: INSULIN LISPRO 100 UNIT/ML SUBCUT SCH ×4 (08:57→21:44)
[2019-10-23] MEDS: INSULIN NPH/REGULAR 70/30 100 UNIT/ML SUBCUT SCH ×2 (08:57→17:15)
[2019-10-23] MEDS: ACETAMINOPHEN 325 MG TABLET PO PRN (17:18)
[2019-10-24 07:00] LABS: Calcium 8.9 MG/DL (8.5-10.1); Osmolality,Calculated 284.4 MOS/KG (273-304)
[2019-10-24] MEDS: INSULIN NPH/REGULAR 70/30 100 UNIT/ML SUBCUT SCH (08:27)
[2019-10-24] MEDS: INSULIN LISPRO 100 UNIT/ML SUBCUT SCH ×2 (08:27→12:23)
[2019-10-24] MEDS: ENOXAPARIN 40 MG/0.4 ML SYRINGE SUBCUT SCH (08:27)
[2019-10-24] MEDS: FAMOTIDINE 20 MG TABLET PO SCH (08:28)
[2019-10-24] MEDS: PHENAZOPYRIDINE 95 MG TABLET PO SCH ×2 (08:28→12:24)
[2019-10-24 11:41] VITALS: BP 122/75
[2019-10-24] MEDS: IBUPROFEN 800 MG TABLET PO PRN (12:27)
== END 2019-10-24 13:47 | disposition home or self-care (01) | DRG 638 ==
LOC: EDBD → EDUNIT# → N.ED 00:36 → N.EDINP 02:14 → SUATTDRO 02:14 → N.ICU 12:25 → N.2E 10-18 17:35 → N.3E 10-21 17:20
PROVIDERS: ADMIT Internal Medicine; ATTEND Internal Medicine

== ENCOUNTER 2019-10-29 19:42 | Inpatient (IN) ==
[2019-10-29] MEDS ORDERED: SODIUM CHLORIDE 0.9% 1,000 ML IV STA (20:29)
[2019-10-29 21:36] LABS: Basophils % 0.2 % (0.0-0.8); Hematocrit 33.6 VOL% (42.0-52.0); Hemoglobin 10.9 GM/DL (14.0-18.0); Immature Granulocytes % 0.8 %; Immature Granulocytes Absolute 0.14 #; Lymphocytes # 1.3 10*3/uL (1.4-4.0); Lymphocytes % 7.7 % (21.2-54.2); Mean Corpuscular HGB Conc 32.4 GM/DL (32-36); Mean Corpuscular Volume 90.8 FL (87-102); Monocytes % 7.2 % (1.7-12.7); Neutrophils % 84.1 % (38.7-73.9); Platelet Count 464 T/CUMM (130-400); Red Cell Distribution Width 13.5 % (9.3-17.3); White Blood Count 16.8 T/CUMM (4-12)
[2019-10-29 21:43] LABS: Albumin 2.7 G/DL (3.4-5.0); Bilirubin,Total 0.5 MG/DL (0.2-1.0); Calcium 8.5 MG/DL (8.5-10.1); Osmolality,Calculated 272.8 MOS/KG (273-304); Total Protein 7.3 G/DL (6.4-8.3)
[2019-10-29 21:45] LABS: Troponin I < 0.015 NG/ML (0.00-0.045)
[2019-10-29] MEDS ORDERED: DEXTROSE 50% 25 GM/50 ML SYRINGE IV ONE (21:48)
[2019-10-29] MEDS ORDERED: DEXTROSE 50% 25 GM/50 ML VIAL IV STA (21:52)
[2019-10-29 21:53] LABS: Apearance,Urine Slightly Hazy (Clear); Bacteria,Urine Many /HPF (Few); Bilirubin,Urine Negative (Negative); Blood, Urine Negative (Negative); Glucose,Urine (UA) 50 mg/dL (Negative); Hyaline Casts,Urine 11 /LPF (0-3); Ketones,Urine Negative (Negative); Mucus,Urine Occasional /LPF (Occasional); Nitrite,Urine Positive (Negative); Protein,Urine Negative; Urine Color Yellow (Yellow); Urine Specific Gravity 1.009 (1.001-1.035); Urine Urobilinogen < 2.0 EU/DL (0.2-1.0); WBC,Urine 9 /HPF (0-6)
[2019-10-29 21:58] LABS: Barbiturates Screen,Urine Negative (Negative); Benzodiazepines Screen,Urine Negative (Negative); Cannabinoid Screen,Urine Negative (Negative); Opiate Screen,Urine Negative (Negative); Phencyclidine Screen,Urine Negative (Negative)
[2019-10-29] MEDS ORDERED: cefTRIAXone 1,000 MG VIAL IM STA (22:23)
[2019-10-30] MEDS ORDERED: GLUCAGON 1 MG VIAL IM PRN ×2 (01:08→13:07)
[2019-10-30] MEDS ORDERED: ONDANSETRON 4 MG/2 ML VIAL IV PRN (01:08)
[2019-10-30] MEDS: DEXTROSE 5% NACL 0.9% 1,000 ML IV SCH ×2 (01:44→10:47)
[2019-10-30] MEDS: LEVOFLOXACIN INJ 500 MG in PREMIX 1 EACH IV SCH (01:45)
[2019-10-30] MEDS: ENOXAPARIN 40 MG/0.4 ML SYRINGE SUBCUT SCH (01:45)
[2019-10-30 07:02] LABS: Basophils % 0.2 % (0.0-0.8); Hemoglobin 10.7 GM/DL (14.0-18.0); Immature Granulocytes % 0.5 %; Immature Granulocytes Absolute 0.08 #; Lymphocytes # 1.6 10*3/uL (1.4-4.0); Lymphocytes % 9.9 % (21.2-54.2); Mean Corpuscular HGB Conc 32.4 GM/DL (32-36); Mean Corpuscular Volume 91.7 FL (87-102); Mean Platelet Volume 9.6 FL (9.6-12.0); Monocytes % 10.1 % (1.7-12.7); Neutrophils % 79.3 % (38.7-73.9); Platelet Count 460 T/CUMM (130-400); Red Cell Distribution Width 13.6 % (9.3-17.3); White Blood Count 15.7 T/CUMM (4-12)
[2019-10-30 07:52] LABS: Calcium 8.2 MG/DL (8.5-10.1); Osmolality,Calculated 277.1 MOS/KG (273-304); Risk Ratio 2.98; VLDL CHOLESTEROL 34.8 MG/DL
[2019-10-30] MEDS: ASPIRIN EC 81 MG TABLET PO SCH (08:03)
[2019-10-30] MEDS ORDERED: DEXTROSE 50% 25 GM/50 ML VIAL IV PRN (13:07)
[2019-10-30] MEDS: INSULIN LISPRO 100 UNIT/ML SUBCUT SCH ×3 (16:02→21:40)
[2019-10-30] MEDS: ACETAMINOPHEN 325 MG TABLET PO PRN (18:16)
[2019-10-30] MEDS: ATORVASTATIN 40 MG TABLET PO SCH (21:40)
[2019-10-31] MEDS ORDERED: POLYETHYLENE GLYCOL POWDER 17 GM PACK PO PRN (01:21)
[2019-10-31] MEDS: LEVOFLOXACIN INJ 500 MG in PREMIX 1 EACH IV SCH (01:42)
[2019-10-31] MEDS: ENOXAPARIN 40 MG/0.4 ML SYRINGE SUBCUT SCH (01:42)
[2019-10-31 05:58] LABS: Basophils % 0.2 % (0.0-0.8); Eosinophils % 0.1 % (0.00-10.9); Hematocrit 35.2 VOL% (42.0-52.0); Hemoglobin 11.7 GM/DL (14.0-18.0); Immature Granulocytes % 0.7 %; Immature Granulocytes Absolute 0.09 #; Lymphocytes # 1.4 10*3/uL (1.4-4.0); Lymphocytes % 10.2 % (21.2-54.2); Mean Corpuscular HGB Conc 33.2 GM/DL (32-36); Mean Corpuscular Volume 89.3 FL (87-102); Mean Platelet Volume 9.2 FL (9.6-12.0); Monocytes % 10.8 % (1.7-12.7); Platelet Count 449 T/CUMM (130-400); Red Blood Count 3.94 MC/CUMM (3.8-5.5); Red Cell Distribution Width 13.1 % (9.3-17.3); White Blood Count 13.3 T/CUMM (4-12)
[2019-10-31 06:11] LABS: Calcium 8.6 MG/DL (8.5-10.1); Osmolality,Calculated 276.8 MOS/KG (273-304)
[2019-10-31] MEDS: INSULIN LISPRO 100 UNIT/ML SUBCUT SCH ×5 (08:21→21:34)
[2019-10-31] MEDS: ASPIRIN EC 81 MG TABLET PO SCH (08:22)
[2019-10-31] MEDS ORDERED: INSULIN NPH/REGULAR 70/30 100 UNIT/ML SUBCUT SCH (16:30)
[2019-10-31] MEDS: INSULIN NPH/REGULAR 70/30 100 UNIT/ML SUBCUT SCH (16:56)
[2019-10-31] MEDS: ATORVASTATIN 40 MG TABLET PO SCH (21:02)
[2019-11-01] MEDS: ENOXAPARIN 40 MG/0.4 ML SYRINGE SUBCUT SCH (00:32)
[2019-11-01] MEDS: LEVOFLOXACIN INJ 500 MG in PREMIX 1 EACH IV SCH (00:32)
[2019-11-01 05:59] LABS: Basophils % 0.3 % (0.0-0.8); Eosinophils % 0.4 % (0.00-10.9); Hematocrit 33.7 VOL% (42.0-52.0); Hemoglobin 11.2 GM/DL (14.0-18.0); Lymphocytes # 1.6 10*3/uL (1.4-4.0); Lymphocytes % 15.6 % (21.2-54.2); Mean Corpuscular HGB Conc 33.2 GM/DL (32-36); Mean Corpuscular Volume 89.6 FL (87-102); Mean Platelet Volume 9.4 FL (9.6-12.0); Monocytes % 11.2 % (1.7-12.7); Neutrophils % 71.5 % (38.7-73.9); Platelet Count 473 T/CUMM (130-400); Red Blood Count 3.76 MC/CUMM (3.8-5.5); Red Cell Distribution Width 13.2 % (9.3-17.3); White Blood Count 10.4 T/CUMM (4-12)
[2019-11-01 06:19] LABS: Calcium 8.4 MG/DL (8.5-10.1); Osmolality,Calculated 280.9 MOS/KG (273-304)
[2019-11-01] MEDS: INSULIN NPH/REGULAR 70/30 100 UNIT/ML SUBCUT SCH ×2 (08:29→17:25)
[2019-11-01] MEDS: INSULIN LISPRO 100 UNIT/ML SUBCUT SCH ×4 (08:30→21:06)
[2019-11-01] MEDS: ASPIRIN EC 81 MG TABLET PO SCH (08:33)
[2019-11-01] MEDS: DULoxetine 30 MG CAPSULE PO SCH (08:33)
[2019-11-01] MEDS ORDERED: INSULIN REGULAR 100 UNIT/ML SUBCUT ONE (10:45)
[2019-11-01] MEDS: ATORVASTATIN 40 MG TABLET PO SCH (21:06)
[2019-11-02] MEDS: LEVOFLOXACIN INJ 500 MG in PREMIX 1 EACH IV SCH (01:15)
[2019-11-02] MEDS: ENOXAPARIN 40 MG/0.4 ML SYRINGE SUBCUT SCH (01:15)
[2019-11-02 06:44] LABS: Calcium 8.4 MG/DL (8.5-10.1); Osmolality,Calculated 283.2 MOS/KG (273-304)
[2019-11-02 07:44] LABS: Basophils % 0.3 % (0.0-0.8); Eosinophils # 0.1 10*3/uL (0.0-0.87); Hematocrit 33.9 VOL% (42.0-52.0); Hemoglobin 11.3 GM/DL (14.0-18.0); Immature Granulocytes % 1.7 %; Immature Granulocytes Absolute 0.12 #; Lymphocytes # 1.6 10*3/uL (1.4-4.0); Lymphocytes % 22.7 % (21.2-54.2); Mean Corpuscular HGB Conc 33.3 GM/DL (32-36); Mean Corpuscular Volume 88.5 FL (87-102); Mean Platelet Volume 9.7 FL (9.6-12.0); Monocytes % 10.2 % (1.7-12.7); Neutrophils % 64.1 % (38.7-73.9); Platelet Count 484 T/CUMM (130-400); Red Blood Count 3.83 MC/CUMM (3.8-5.5); White Blood Count 7.1 T/CUMM (4-12)
[2019-11-02] MEDS: INSULIN LISPRO 100 UNIT/ML SUBCUT SCH ×4 (08:31→20:53)
[2019-11-02] MEDS: ASPIRIN EC 81 MG TABLET PO SCH (08:32)
[2019-11-02] MEDS: DULoxetine 30 MG CAPSULE PO SCH (08:32)
[2019-11-02] MEDS: INSULIN NPH/REGULAR 70/30 100 UNIT/ML SUBCUT SCH (08:35)
[2019-11-02] MEDS ORDERED: INSULIN NPH/REGULAR 70/30 100 UNIT/ML SUBCUT SCH (17:00)
[2019-11-02] MEDS: ATORVASTATIN 40 MG TABLET PO SCH (20:53)
[2019-11-03] MEDS: LEVOFLOXACIN INJ 500 MG in PREMIX 1 EACH IV SCH (01:53)
[2019-11-03] MEDS: ENOXAPARIN 40 MG/0.4 ML SYRINGE SUBCUT SCH (01:54)
[2019-11-03 06:11] LABS: Basophils % 0.4 % (0.0-0.8); Eosinophils # 0.1 10*3/uL (0.0-0.87); Eosinophils % 0.7 % (0.00-10.9); Hematocrit 33.1 VOL% (42.0-52.0); Hemoglobin 10.9 GM/DL (14.0-18.0); Immature Granulocytes % 2.1 %; Immature Granulocytes Absolute 0.16 #; Lymphocytes # 1.6 10*3/uL (1.4-4.0); Lymphocytes % 21.1 % (21.2-54.2); Mean Corpuscular HGB Conc 32.9 GM/DL (32-36); Mean Corpuscular Volume 90.2 FL (87-102); Mean Platelet Volume 9.1 FL (9.6-12.0); Neutrophils % 67.7 % (38.7-73.9); Platelet Count 475 T/CUMM (130-400); Red Blood Count 3.67 MC/CUMM (3.8-5.5); White Blood Count 7.6 T/CUMM (4-12)
[2019-11-03 06:27] LABS: Calcium 8.3 MG/DL (8.5-10.1); Osmolality,Calculated 276.4 MOS/KG (273-304)
[2019-11-03] MEDS: INSULIN NPH/REGULAR 70/30 100 UNIT/ML SUBCUT SCH (09:19)
[2019-11-03] MEDS: INSULIN LISPRO 100 UNIT/ML SUBCUT SCH ×4 (09:19→21:00)
[2019-11-03] MEDS: DULoxetine 30 MG CAPSULE PO SCH (09:20)
[2019-11-03] MEDS: ASPIRIN EC 81 MG TABLET PO SCH (09:20)
[2019-11-03] MEDS ORDERED: INSULIN NPH/REGULAR 70/30 100 UNIT/ML SUBCUT SCH (14:17)
[2019-11-03] MEDS: ATORVASTATIN 40 MG TABLET PO SCH (20:59)
[2019-11-04] MEDS: ENOXAPARIN 40 MG/0.4 ML SYRINGE SUBCUT SCH (01:41)
[2019-11-04] MEDS: LEVOFLOXACIN INJ 500 MG in PREMIX 1 EACH IV SCH (01:41)
[2019-11-04 06:08] LABS: Basophils % 0.3 % (0.0-0.8); Eosinophils % 0.3 % (0.00-10.9); Hematocrit 31.3 VOL% (42.0-52.0); Hemoglobin 10.4 GM/DL (14.0-18.0); Immature Granulocytes % 3.1 %; Immature Granulocytes Absolute 0.27 #; Lymphocytes # 1.6 10*3/uL (1.4-4.0); Lymphocytes % 18.2 % (21.2-54.2); Mean Corpuscular HGB Conc 33.2 GM/DL (32-36); Mean Corpuscular Volume 89.4 FL (87-102); Mean Platelet Volume 9.4 FL (9.6-12.0); Monocytes % 7.4 % (1.7-12.7); Neutrophils % 70.7 % (38.7-73.9); Platelet Count 466 T/CUMM (130-400); Red Cell Distribution Width 13.2 % (9.3-17.3); White Blood Count 8.7 T/CUMM (4-12)
[2019-11-04 06:29] LABS: Calcium 8.3 MG/DL (8.5-10.1); Osmolality,Calculated 277.1 MOS/KG (273-304)
[2019-11-04] MEDS: INSULIN NPH/REGULAR 70/30 100 UNIT/ML SUBCUT SCH ×2 (08:44→17:27)
[2019-11-04] MEDS: INSULIN LISPRO 100 UNIT/ML SUBCUT SCH ×4 (08:45→21:55)
[2019-11-04] MEDS: ASPIRIN EC 81 MG TABLET PO SCH (10:11)
[2019-11-04] MEDS: DULoxetine 30 MG CAPSULE PO SCH (10:11)
[2019-11-04] MEDS: ATORVASTATIN 40 MG TABLET PO SCH (21:57)
[2019-11-05] MEDS: DEXTROSE 10% 250 ML BAG IV PRN ×2 (00:29→01:11)
[2019-11-05] MEDS: LEVOFLOXACIN INJ 500 MG in PREMIX 1 EACH IV SCH (01:39)
[2019-11-05] MEDS: ENOXAPARIN 40 MG/0.4 ML SYRINGE SUBCUT SCH (01:40)
[2019-11-05 06:08] LABS: Basophils # 0.1 10*3/uL (0.0-0.2); Basophils % 0.5 % (0.0-0.8); Eosinophils % 0.4 % (0.00-10.9); Hemoglobin 11.5 GM/DL (14.0-18.0); Immature Granulocytes % 5.6 %; Immature Granulocytes Absolute 0.55 #; Lymphocytes % 19.9 % (21.2-54.2); Mean Corpuscular HGB Conc 32.9 GM/DL (32-36); Mean Corpuscular Volume 90.2 FL (87-102); Mean Platelet Volume 9.2 FL (9.6-12.0); Monocytes % 7.3 % (1.7-12.7); Neutrophils % 66.3 % (38.7-73.9); Platelet Count 517 T/CUMM (130-400); Red Blood Count 3.88 MC/CUMM (3.8-5.5); Red Cell Distribution Width 13.3 % (9.3-17.3); White Blood Count 9.9 T/CUMM (4-12)
[2019-11-05 06:27] LABS: Calcium 8.7 MG/DL (8.5-10.1)
[2019-11-05 06:30] LABS: Atypical Lymphocytes Few; Band Neutrophils 1 % (0-10); Hypochromasia 1+; Lymphocytes 16 % (20-55); Microcytosis Slight; Myelocytes 1 %; Polychromasia Slight; Segmented Neutrophils 78 % (50-85); Total Cells Counted 100
[2019-11-05 06:31] LABS: Platelet Estimate Increased
[2019-11-05] MEDS: INSULIN LISPRO 100 UNIT/ML SUBCUT SCH ×4 (08:27→21:00)
[2019-11-05] MEDS: ASPIRIN EC 81 MG TABLET PO SCH (09:21)
[2019-11-05] MEDS: DULoxetine 30 MG CAPSULE PO SCH (09:21)
[2019-11-05] MEDS: INSULIN NPH/REGULAR 70/30 100 UNIT/ML SUBCUT SCH ×2 (09:21→16:18)
[2019-11-05] MEDS: ATORVASTATIN 40 MG TABLET PO SCH (21:53)
[2019-11-05] MEDS: ACETAMINOPHEN 325 MG TABLET PO PRN (21:53)
[2019-11-06] MEDS ORDERED: IBUPROFEN 400 MG TABLET PO ONE (00:21)
[2019-11-06] MEDS: LEVOFLOXACIN INJ 500 MG in PREMIX 1 EACH IV SCH (00:47)
[2019-11-06] MEDS: ENOXAPARIN 40 MG/0.4 ML SYRINGE SUBCUT SCH (00:49)
[2019-11-06] MEDS: INSULIN NPH/REGULAR 70/30 100 UNIT/ML SUBCUT SCH (09:03)
[2019-11-06] MEDS: DULoxetine 30 MG CAPSULE PO SCH (09:03)
[2019-11-06] MEDS: ASPIRIN EC 81 MG TABLET PO SCH (09:03)
[2019-11-06] MEDS: INSULIN LISPRO 100 UNIT/ML SUBCUT SCH ×2 (09:04→11:24)
[2019-11-06 12:04] VITALS: BP 117/66
[2019-11-07] MEDS ORDERED: LEVOFLOXACIN 500 MG TABLET PO SCH (09:00)
== END 2019-11-06 13:45 | DRG 65 ==
LOC: EDUNIT# → EDBD → N.ED 19:42 → N.EDINP 23:25 → SUATTDRO 23:25 → N.3E 10-30 01:00
PROVIDERS: ADMIT Internal Medicine; ATTEND Internal Medicine Geriatric Medicine

== ENCOUNTER 2020-02-12 02:47 | Inpatient (IN) ==
[2020-02-12] MEDS ORDERED: ONDANSETRON 4 MG/2 ML VIAL ONE (03:07)
[2020-02-12] MEDS ORDERED: SODIUM CHLORIDE 0.9% 1,000 ML IV STA (03:12)
[2020-02-12] MEDS ORDERED: ONDANSETRON 4 MG/2 ML VIAL IV STA (03:12)
[2020-02-12] MEDS ORDERED: PANTOPRAZOLE INJ 80 MG in SODIUM CHLORIDE 0.9% 100 ML IV ONE (03:22)
[2020-02-12 03:27] LABS: Basophils # 0.1 10*3/uL (0.0-0.2); Basophils % 0.2 % (0.0-0.8); Eosinophils % 47.2 % (0.00-10.9); Hematocrit 49.2 VOL% (42.0-52.0); Immature Granulocytes % 1.2 %; Immature Granulocytes Absolute 0.32 #; Lymphocytes # 1.3 10*3/uL (1.4-4.0); Lymphocytes % 4.8 % (21.2-54.2); Mean Corpuscular HGB Conc 29.5 GM/DL (32-36); Mean Corpuscular Volume 101.2 FL (87-102); Mean Platelet Volume 10.2 FL (9.6-12.0); Monocytes % 4.1 % (1.7-12.7); Neutrophils % 42.5 % (38.7-73.9); Platelet Count 423 T/CUMM (130-400); Red Blood Count 4.86 MC/CUMM (3.8-5.5); Red Cell Distribution Width 13.1 % (9.3-17.3); White Blood Count 27.5 T/CUMM (4-12)
[2020-02-12 03:38] LABS: Hemoglobin 14.5 GM/DL (14.0-18.0)
[2020-02-12] MEDS ORDERED: PANTOPRAZOLE 40 MG VIAL IV ONE (03:42)
[2020-02-12 03:43] LABS: Albumin 4.1 G/DL (3.4-5.0); Bilirubin,Total 0.6 MG/DL (0.2-1.0); Calcium 9.9 MG/DL (8.5-10.1); Osmolality,Calculated 317.6 MOS/KG (273-304); Total Protein 8.4 G/DL (6.4-8.3)
[2020-02-12] MEDS ORDERED: INSULIN REGULAR 100 UNIT/ML IV STA (03:46)
[2020-02-12] MEDS ORDERED: INSULIN REGULAR 100 UNIT/ML IV ONE ×2 (04:07→14:52)
[2020-02-12 04:08] LABS: ABG Base Excess -24.3 MMOL/L (-2.5-2.5); ABG Oxygen Saturation 97.7 % (95-100); ABG TCO2 5.1 MMOL/L (23-27)
[2020-02-12 04:09] LABS: ABG PCO2 18.6 MM HG (35-48); ABG PH 7.073 (7.35-7.45)
[2020-02-12] MEDS ORDERED: INSULIN REGULAR DRIP 100 ML IV PRN (04:41)
[2020-02-12 04:44] LABS: Anisocytosis Slight; Band Neutrophils 1 % (0-10); Lymphocytes 5 % (20-55); Platelet Estimate Normal; Segmented Neutrophils 90 % (50-85); Total Cells Counted 100
[2020-02-12] MEDS: PANTOPRAZOLE INJ 200 MG in SODIUM CHLORIDE 0.9% 250 ML IV SCH (05:01)
[2020-02-12] MEDS ORDERED: SODIUM CHLORIDE 0.9% 1,000 ML IV ONE (05:09)
[2020-02-12] MEDS ORDERED: MAGNESIUM SULF RIDER 2 GM in PREMIX 1 EACH IV PRN (05:09)
[2020-02-12] MEDS ORDERED: SODIUM BICARB INJ 100 MEQ in STERILE WATER INJ 400 ML IV PRN (05:09)
[2020-02-12] MEDS ORDERED: MAGNESIUM SULF RIDER 4 GM in PREMIX 1 EACH IV PRN (05:09)
[2020-02-12] MEDS ORDERED: ONDANSETRON 4 MG/2 ML VIAL IV PRN (05:09)
[2020-02-12] MEDS ORDERED: GLUCAGON 1 MG VIAL IM PRN (05:09)
[2020-02-12] MEDS ORDERED: DEXTROSE 50% 25 GM/50 ML VIAL IV PRN ×3 (05:09)
[2020-02-12] MEDS ORDERED: SODIUM CHLORIDE 0.9% IV PRN (05:09)
[2020-02-12] MEDS ORDERED: SODIUM PHOSPHATE IV PRN (05:09)
[2020-02-12] MEDS ORDERED: SODIUM POLYSTYRENE SULFATE 15 GM/60 ML BOTTLE PO SCH (05:30)
[2020-02-12] MEDS ORDERED: PANTOPRAZOLE INJ 200 MG in SODIUM CHLORIDE 0.9% 250 ML IV SCH (05:30)
[2020-02-12] MEDS ORDERED: INSULIN REGULAR DRIP 100 ML IV SCH (05:30)
[2020-02-12 05:39] LABS: ABG Base Excess -18.5 MMOL/L (-2.5-2.5); ABG HCO3 7.7 MMOL/L (20-26); ABG Oxygen Saturation 97.9 % (95-100); ABG TCO2 8.3 MMOL/L (23-27)
[2020-02-12 05:44] LABS: ABG PCO2 20.5 MM HG (35-48); ABG PH 7.191 (7.35-7.45)
[2020-02-12] MEDS: SODIUM CHLORIDE 0.9% 1,000 ML IV SCH ×2 (07:50→09:34)
[2020-02-12] MEDS ORDERED: SODIUM BICARBONATE 50 MEQ/50 ML VIAL IV ONE (07:56)
[2020-02-12 08:13] LABS: Allen Test Positive
[2020-02-12 08:14] LABS: ABG Base Excess -11.5 MMOL/L (-2.5-2.5); ABG HCO3 12.8 MMOL/L (20-26); ABG Oxygen Saturation 98.3 % (95-100); ABG PCO2 25.3 MM HG (35-48); ABG PH 7.321 (7.35-7.45); ABG PO2 126.8 MM HG (80-95); ABG TCO2 13.5 MMOL/L (23-27)
[2020-02-12 08:58] LABS: Bacteria,Urine Occasional /HPF (Few); Bilirubin,Urine Negative (Negative); Blood, Urine Negative (Negative); Glucose,Urine (UA) >=500 mg/dL (Negative); Ketones,Urine 80 mg/dL (Negative); Mucus,Urine Occasional /LPF (Occasional); Nitrite,Urine Negative (Negative); Protein,Urine Negative; RBC,Urine <1 /HPF (0-4); Urine Appearance CLEAR (Clear); Urine Color Yellow (Yellow); Urine Specific Gravity 1.021 (1.001-1.035); Urine Urobilinogen < 2.0 EU/DL (0.2-1.0); WBC,Urine <1 /HPF (0-6)
[2020-02-12 09:18] LABS: Barbiturates Screen,Urine Negative (Negative); Benzodiazepines Screen,Urine Negative (Negative); Cannabinoid Screen,Urine Negative (Negative); Opiate Screen,Urine Negative (Negative); Phencyclidine Screen,Urine Negative (Negative)
[2020-02-12 10:04] LABS: ABG Base Excess -1.9 MMOL/L (-2.5-2.5); ABG HCO3 22.8 MMOL/L (20-26); ABG Oxygen Saturation 99.2 % (95-100); ABG PCO2 33.8 MM HG (35-48); ABG PH 7.419 (7.35-7.45); ABG TCO2 19.4 MMOL/L (23-27); Allen Test Positive
[2020-02-12] MEDS ORDERED: SODIUM CHLORIDE 0.9% 1,000 ML IV SCH (10:10)
[2020-02-12 10:13] LABS: Calcium 8.5 MG/DL (8.5-10.1)
[2020-02-12 13:29] LABS: Osmolality,Calculated 309.4 MOS/KG (273-304)
[2020-02-12] MEDS: SODIUM CHLORIDE 0.45% 1,000 ML IV SCH (14:34)
[2020-02-12] MEDS ORDERED: INSULIN NPH/REGULAR 70/30 100 UNIT/ML SUBCUT SCH (16:30)
[2020-02-12] MEDS: INSULIN REGULAR 100 UNIT/ML SUBCUT SCH (17:10)
[2020-02-12 17:48] LABS: Calcium 7.6 MG/DL (8.5-10.1)
[2020-02-12] MEDS: DEXT 5% NACL 0.45% KCL 20 MEQ 20 MEQ/1,000 ML BAG IV SCH (19:06)
[2020-02-12 21:34] LABS: Calcium 7.4 MG/DL (8.5-10.1); Osmolality,Calculated 296.4 MOS/KG (273-304)
[2020-02-12] MEDS: POTASSIUM CHLORIDE RIDER 10 MEQ in PREMIX 1 EACH IV PRN ×2 (21:46→22:50)
[2020-02-12] MEDS ORDERED: SODIUM CHLORIDE 0.45% 1,000 ML IV SCH (22:10)
[2020-02-13] MEDS: SODIUM CHLORIDE 0.45% 1,000 ML IV SCH ×5 (00:01→18:15)
[2020-02-13] MEDS: POTASSIUM CHLORIDE RIDER 10 MEQ in PREMIX 1 EACH IV PRN ×4 (00:03→07:38)
[2020-02-13] MEDS: INSULIN REGULAR 100 UNIT/ML SUBCUT SCH ×4 (00:27→17:52)
[2020-02-13 02:00] LABS: Calcium 7.4 MG/DL (8.5-10.1)
[2020-02-13] MEDS: DEXT 5% NACL 0.45% KCL 20 MEQ 20 MEQ/1,000 ML BAG IV SCH ×2 (03:40→06:27)
[2020-02-13 04:47] LABS: Calcium 7.6 MG/DL (8.5-10.1); Osmolality,Calculated 287.1 MOS/KG (273-304)
[2020-02-13 05:25] LABS: Basophils % 0.1 % (0.0-0.8); Hematocrit 29.7 VOL% (42.0-52.0); Immature Granulocytes % 0.4 %; Immature Granulocytes Absolute 0.06 #; Lymphocytes # 1.2 10*3/uL (1.4-4.0); Lymphocytes % 7.7 % (21.2-54.2); Mean Corpuscular HGB Conc 34.7 GM/DL (32-36); Mean Corpuscular Volume 86.3 FL (87-102); Mean Platelet Volume 9.7 FL (9.6-12.0); Monocytes % 7.2 % (1.7-12.7); Neutrophils % 84.6 % (38.7-73.9); Red Cell Distribution Width 12.9 % (9.3-17.3)
[2020-02-13 05:32] LABS: White Blood Count 15.8 T/CUMM (4-12)
[2020-02-13 05:33] LABS: Hemoglobin 10.3 GM/DL (14.0-18.0); Platelet Count 250 T/CUMM (130-400); Red Blood Count 3.44 MC/CUMM (3.8-5.5)
[2020-02-13] MEDS ORDERED: POTASSIUM PHOSPHATE 30 MMOL in SODIUM CHLORIDE 0.9% 250 ML IV ONE (09:00)
[2020-02-13] MEDS ORDERED: POLYETHYLENE GLYCOL POWDER 17 GM PACK PO PRN (10:24)
[2020-02-13] MEDS ORDERED: PANTOPRAZOLE 40 MG TABLET PO SCH (10:24)
[2020-02-13] MEDS: PANTOPRAZOLE INJ 200 MG in SODIUM CHLORIDE 0.9% 250 ML IV SCH (10:31)
[2020-02-13] MEDS: lisinopriL 2.5 MG TABLET PO SCH (11:43)
[2020-02-13] MEDS: DULoxetine 30 MG CAPSULE PO SCH (11:43)
[2020-02-13] MEDS: ASPIRIN EC 81 MG TABLET PO SCH (11:45)
[2020-02-13] MEDS ORDERED: INSULIN REGULAR 100 UNIT/ML IV ONE (11:51)
[2020-02-13] MEDS: INSULIN LISPRO 100 UNIT/ML SUBCUT SCH ×2 (12:20→18:15)
[2020-02-13] MEDS ORDERED: INSULIN NPH/REGULAR 70/30 100 UNIT/ML SUBCUT SCH (12:27)
[2020-02-13] MEDS ORDERED: INSULIN LISPRO 100 UNIT/ML SUBCUT ONE (14:02)
[2020-02-13] MEDS: INSULIN GLARGINE 100 UNIT/ML SUBCUT SCH (14:58)
[2020-02-13] MEDS ORDERED: ATORVASTATIN 40 MG TABLET PO SCH (21:00)
[2020-02-14] MEDS: INSULIN REGULAR 100 UNIT/ML SUBCUT SCH ×4 (00:25→17:08)
[2020-02-14] MEDS: SODIUM CHLORIDE 0.45% 1,000 ML IV SCH ×3 (02:10→08:45)
[2020-02-14] MEDS: INSULIN LISPRO 100 UNIT/ML SUBCUT SCH (07:19)
[2020-02-14 08:27] LABS: Basophils % 0.2 % (0.0-0.8); Eosinophils % 0.5 % (0.00-10.9); Hematocrit 30.4 VOL% (42.0-52.0); Hemoglobin 10.4 GM/DL (14.0-18.0); Immature Granulocytes % 0.4 %; Immature Granulocytes Absolute 0.02 #; Lymphocytes # 1.4 10*3/uL (1.4-4.0); Lymphocytes % 25.1 % (21.2-54.2); Mean Corpuscular HGB Conc 34.2 GM/DL (32-36); Mean Corpuscular Volume 88.1 FL (87-102); Mean Platelet Volume 9.8 FL (9.6-12.0); Monocytes % 10.1 % (1.7-12.7); Neutrophils % 63.7 % (38.7-73.9); Platelet Count 203 T/CUMM (130-400); Red Blood Count 3.45 MC/CUMM (3.8-5.5); Red Cell Distribution Width 13.3 % (9.3-17.3); White Blood Count 5.6 T/CUMM (4-12)
[2020-02-14 08:28] LABS: Calcium 8.1 MG/DL (8.5-10.1); Osmolality,Calculated 282.3 MOS/KG (273-304)
[2020-02-14] MEDS: DULoxetine 30 MG CAPSULE PO SCH (08:40)
[2020-02-14] MEDS: lisinopriL 2.5 MG TABLET PO SCH (08:41)
[2020-02-14] MEDS: ASPIRIN EC 81 MG TABLET PO SCH (08:41)
[2020-02-14] MEDS: INSULIN GLARGINE 100 UNIT/ML SUBCUT SCH (08:42)
[2020-02-14] MEDS ORDERED: PANTOPRAZOLE 40 MG TABLET PO SCH (09:00)
[2020-02-14 11:35] VITALS: BP 136/73
== END 2020-02-14 17:30 | disposition home health service (06) | DRG 637 ==
LOC: N.ED 02:47 → SUATTDRO 05:09 → N.EDINP 05:09 → N.CC 06:09 → N.3E 02-13 17:51
PROVIDERS: ADMIT Internal Medicine; ATTEND Internal Medicine

== ENCOUNTER 2020-02-23 16:56 | Observation (INO) ==
[2020-02-23] MEDS ORDERED: DEXTROSE 50% 25 GM/50 ML VIAL IV STA (17:23)
[2020-02-23] MEDS ORDERED: SODIUM CHLORIDE 0.9% 500 ML IV STA (17:26)
[2020-02-23] MEDS ORDERED: DEXTROSE 50% 25 GM/50 ML SYRINGE IV ONE (17:49)
[2020-02-23 17:53] LABS: Basophils % 0.2 % (0.0-0.8); Eosinophils % 0.2 % (0.00-10.9); Hematocrit 36.2 VOL% (42.0-52.0); Immature Granulocytes % 0.7 %; Immature Granulocytes Absolute 0.09 #; Lymphocytes # 1.5 10*3/uL (1.4-4.0); Lymphocytes % 12.6 % (21.2-54.2); Mean Corpuscular HGB Conc 33.1 GM/DL (32-36); Mean Corpuscular Volume 89.6 FL (87-102); Mean Platelet Volume 8.9 FL (9.6-12.0); Monocytes % 7.2 % (1.7-12.7); Neutrophils % 79.1 % (38.7-73.9); Platelet Count 394 T/CUMM (130-400); Red Blood Count 4.04 MC/CUMM (3.8-5.5); Red Cell Distribution Width 13.4 % (9.3-17.3); White Blood Count 12.1 T/CUMM (4-12)
[2020-02-23 18:11] LABS: INR 0.9; PT Patient Result 9.9 SECS (9.8-11.9)
[2020-02-23 18:15] LABS: Alanine Aminotransferase 40 U/L (16-61); Albumin 3.4 G/DL (3.4-5.0); Alkaline Phosphatase 140 U/L (45-117); Aspartate Amino Transferase 26 U/L (0-37); Bilirubin,Total < 0.39 MG/DL (0.2-1.0); Blood Urea Nitrogen 11 MG/DL (7-18); Calcium 8.8 MG/DL (8.5-10.1); Estimated Glom Filtration Rate 94 ML/MIN; Osmolality,Calculated 275.3 MOS/KG (273-304); Total Protein 7.1 G/DL (6.4-8.3); Troponin I < 0.015 NG/ML (0.00-0.045)
[2020-02-23 18:22] LABS: Glucose 29 MG/DL (74-106)
[2020-02-23 19:37] LABS: Bacteria,Urine Occasional /HPF (Few); Bilirubin,Urine Negative (Negative); Blood, Urine Negative (Negative); Glucose,Urine (UA) Negative (Negative); Ketones,Urine Negative (Negative); Nitrite,Urine Negative (Negative); Protein,Urine Negative; RBC,Urine <1 /HPF (0-4); Urine Appearance CLEAR (Clear); Urine Color Colorless (Yellow); Urine Specific Gravity 1.002 (1.001-1.035); Urine Urobilinogen < 2.0 EU/DL (0.2-1.0); WBC,Urine 139 /HPF (0-6)
[2020-02-23 19:38] LABS: Barbiturates Screen,Urine Negative (Negative); Benzodiazepines Screen,Urine Negative (Negative); Cannabinoid Screen,Urine Negative (Negative); Opiate Screen,Urine Negative (Negative); Phencyclidine Screen,Urine Negative (Negative)
[2020-02-23] MEDS ORDERED: cefTRIAXone 1,000 MG in SODIUM CHLORIDE 0.9% 100 ML IV STA (20:02)
[2020-02-23] MEDS ORDERED: cefTRIAXone 2,000 MG in SYRINGE 1 EACH IV STA (20:24)
[2020-02-23] MEDS ORDERED: GLUCAGON 1 MG VIAL IM PRN (20:43)
[2020-02-23] MEDS ORDERED: ACETAMINOPHEN 325 MG TABLET PO PRN (20:43)
[2020-02-23] MEDS ORDERED: ONDANSETRON 4 MG/2 ML VIAL IV PRN (20:43)
[2020-02-23] MEDS ORDERED: DEXTROSE 50% 25 GM/50 ML VIAL IV PRN ×2 (20:43→20:58)
[2020-02-23] MEDS ORDERED: hydrALAZINE 20 MG/1 ML VIAL IV PRN (20:43)
[2020-02-23] MEDS ORDERED: DOCUSATE SODIUM 100 MG CAPSULE PO PRN (20:43)
[2020-02-23] MEDS ORDERED: DEXTROSE 50% 25 GM/50 ML SYRINGE IV PRN (20:57)
[2020-02-23] MEDS ORDERED: ENOXAPARIN 40 MG/0.4 ML SYRINGE SUBCUT SCH (21:00)
[2020-02-23] MEDS ORDERED: DEXTROSE 5% 1,000 ML IV SCH (21:00)
[2020-02-23] MEDS ORDERED: POLYETHYLENE GLYCOL POWDER 17 GM PACK PO PRN (21:01)
[2020-02-23] MEDS ORDERED: ATORVASTATIN 40 MG TABLET PO SCH (21:30)
[2020-02-23] MEDS: INSULIN LISPRO 100 UNIT/ML SUBCUT SCH (23:18)
[2020-02-24] MEDS: INSULIN LISPRO 100 UNIT/ML SUBCUT SCH ×3 (02:42→10:19)
[2020-02-24] MEDS ORDERED: SODIUM CHLORIDE 0.9% 1,000 ML IV SCH (05:00)
[2020-02-24 06:07] LABS: Basophils % 0.2 % (0.0-0.8); Eosinophils # 0.1 10*3/uL (0.0-0.87); Eosinophils % 1.1 % (0.00-10.9); Hematocrit 35.1 VOL% (42.0-52.0); Hemoglobin 11.7 GM/DL (14.0-18.0); Immature Granulocytes % 0.6 %; Immature Granulocytes Absolute 0.05 #; Lymphocytes # 2.1 10*3/uL (1.4-4.0); Lymphocytes % 25.5 % (21.2-54.2); Mean Corpuscular HGB Conc 33.3 GM/DL (32-36); Mean Corpuscular Volume 89.5 FL (87-102); Mean Platelet Volume 9.5 FL (9.6-12.0); Monocytes % 7.6 % (1.7-12.7); Platelet Count 410 T/CUMM (130-400); Red Blood Count 3.92 MC/CUMM (3.8-5.5); Red Cell Distribution Width 13.4 % (9.3-17.3); White Blood Count 8.2 T/CUMM (4-12)
[2020-02-24 06:35] LABS: Calcium 8.5 MG/DL (8.5-10.1); Osmolality,Calculated 285.4 MOS/KG (273-304)
[2020-02-24] MEDS ORDERED: ASPIRIN EC 81 MG TABLET PO SCH (09:00)
[2020-02-24] MEDS ORDERED: lisinopriL 5 MG TABLET PO SCH (09:00)
[2020-02-24] MEDS ORDERED: PANTOPRAZOLE 40 MG TABLET PO SCH (09:00)
[2020-02-24] MEDS ORDERED: NITROFURANTOIN MACRO/MONO 100 MG CAPSULE PO SCH (11:00)
[2020-02-24 12:34] VITALS: BP 126/80
[2020-02-24] MEDS ORDERED: PHENAZOPYRIDINE 95 MG TABLET PO SCH (17:00)
[2020-02-24] MEDS ORDERED: cefTRIAXone 2,000 MG in SYRINGE 1 EACH IV SCH (21:00)
== END 2020-02-24 13:43 | disposition home or self-care (01) ==
LOC: N.EDINP 16:56 → N.ED 16:56 → N.5E 22:10
PROVIDERS: ADMIT Hospitalist; ATTEND Hospitalist

== ENCOUNTER 2020-03-10 20:18 | Inpatient (IN) ==
[2020-03-10] MEDS ORDERED: VECURONIUM 10 MG VIAL IV ONE (20:53)
[2020-03-10] MEDS ORDERED: ETOMIDATE 20 MG/10 ML VIAL IV ONE (20:53)
[2020-03-10] MEDS ORDERED: SODIUM CHLORIDE 0.9% 2,000 ML IV STA ×2 (20:56→22:27)
[2020-03-10] MEDS ORDERED: PIPERACILLIN/TAZOBACTAM 3,375 MG in SODIUM CHLORIDE 0.9% 100 ML IV STA (20:56)
[2020-03-10] MEDS ORDERED: INSULIN REGULAR DRIP 100 ML IV PRN (20:57)
[2020-03-10 21:09] LABS: Allen Test Positive; Pt O2 Delivery Device Ventilator
[2020-03-10 21:10] LABS: ABG Base Excess -27.6 MMOL/L (-2.5-2.5); ABG HCO3 4.2 MMOL/L (20-26); ABG Oxygen Saturation 93.2 % (95-100); ABG PH 6.889 (7.35-7.45); ABG PO2 98.2 MM HG (80-95); ABG TCO2 4.9 MMOL/L (23-27)
[2020-03-10 21:12] LABS: ABG PCO2 22.7 MM HG (35-48)
[2020-03-10] MEDS ORDERED: SODIUM BICARBONATE 50 MEQ/50 ML VIAL IV ONE (21:13)
[2020-03-10] MEDS ORDERED: SODIUM BICARBONATE 50 MEQ/50 ML VIAL IV STA (21:14)
[2020-03-10 21:15] LABS: Bacteria,Urine Occasional /HPF (Few); Bilirubin,Urine Negative (Negative); Blood, Urine Negative (Negative); Glucose,Urine (UA) >=500 mg/dL (Negative); Hyaline Casts,Urine 1 /LPF (0-3); Ketones,Urine 20 mg/dL (Negative); Nitrite,Urine Negative (Negative); Protein,Urine Negative; RBC,Urine <1 /HPF (0-4); Urine Appearance CLEAR (Clear); Urine Color Yellow (Yellow); Urine Urobilinogen < 2.0 EU/DL (0.2-1.0); WBC,Urine 1 /HPF (0-6)
[2020-03-10 21:15] LABS: PT Patient Result 11.2 SECS (9.8-11.9)
[2020-03-10 21:21] LABS: Alanine Aminotransferase 23 U/L (16-61); Albumin 3.5 G/DL (3.4-5.0); Alkaline Phosphatase 179 U/L (45-117); Aspartate Amino Transferase 14 U/L (0-37); Basophils # 0.1 10*3/uL (0.0-0.2); Basophils % 0.3 % (0.0-0.8); Blood Urea Nitrogen 65 MG/DL (7-18); Calcium 8.9 MG/DL (8.5-10.1); Hematocrit 42.7 VOL% (42.0-52.0); Hemoglobin 11.8 GM/DL (14.0-18.0); Immature Granulocytes % 4.1 %; Immature Granulocytes Absolute 1.09 #; Lymphocytes # 2.4 10*3/uL (1.4-4.0); Lymphocytes % 8.8 % (21.2-54.2); Mean Corpuscular HGB Conc 27.6 GM/DL (32-36); Mean Corpuscular Volume 108.9 FL (87-102); Monocytes % 9.2 % (1.7-12.7); Neutrophils % 77.6 % (38.7-73.9); Osmolality,Calculated 346.9 MOS/KG (273-304); Platelet Count 418 T/CUMM (130-400); Red Blood Count 3.92 MC/CUMM (3.8-5.5); Red Cell Distribution Width 13.9 % (9.3-17.3); Total Protein 7.3 G/DL (6.4-8.3); Troponin I < 0.015 NG/ML (0.00-0.045); White Blood Count 26.8 T/CUMM (4-12)
[2020-03-10 21:22] LABS: Estimated Glom Filtration Rate 0 ML/MIN
[2020-03-10 21:24] LABS: Glucose 1591 MG/DL (74-106)
[2020-03-10] MEDS ORDERED: INSULIN REGULAR 100 UNIT/ML ONE (21:25)
[2020-03-10 21:26] LABS: Barbiturates Screen,Urine Negative (Negative); Benzodiazepines Screen,Urine Negative (Negative); Cannabinoid Screen,Urine Negative (Negative); Opiate Screen,Urine Negative (Negative); Phencyclidine Screen,Urine Negative (Negative)
[2020-03-10] MEDS ORDERED: INSULIN REGULAR 100 UNIT/ML IV STA (21:26)
[2020-03-10 21:27] LABS: Lymphocytes 10 % (20-55); Macrocytosis 2+; Segmented Neutrophils 81 % (50-85); Total Cells Counted 100
[2020-03-10 21:28] LABS: Platelet Estimate Normal
[2020-03-10] MEDS ORDERED: SODIUM CHLORIDE 0.9% 1,000 ML IV ONE (21:37)
[2020-03-10] MEDS ORDERED: SODIUM PHOSPHATE INJ 15 MMOL in SODIUM CHLORIDE 0.9% 250 ML IV PRN (21:37)
[2020-03-10] MEDS ORDERED: MAGNESIUM SULF RIDER 4 GM in PREMIX 1 EACH IV PRN (21:37)
[2020-03-10] MEDS ORDERED: SODIUM BICARB INJ 100 MEQ in STERILE WATER INJ 400 ML IV PRN (21:37)
[2020-03-10] MEDS ORDERED: POTASSIUM CHLORIDE RIDER 10 MEQ in PREMIX 1 EACH IV PRN (21:37)
[2020-03-10] MEDS ORDERED: MAGNESIUM SULF RIDER 2 GM in PREMIX 1 EACH IV PRN (21:37)
[2020-03-10] MEDS ORDERED: INSULIN REGULAR 100 UNIT/ML IV ONE (21:37)
[2020-03-10] MEDS ORDERED: DEXTROSE 50% 25 GM/50 ML VIAL IV PRN ×2 (21:37)
[2020-03-10] MEDS ORDERED: INSULIN REGULAR DRIP 100 ML IV SCH (22:00)
[2020-03-10] MEDS ORDERED: NICOTINE 21 MG/24 HR PATCH TRANSDERM PRN (22:31)
[2020-03-10] MEDS ORDERED: ONDANSETRON 4 MG/2 ML VIAL IV PRN (22:31)
[2020-03-10] MEDS ORDERED: ACETAMINOPHEN 325 MG TABLET PO PRN (22:31)
[2020-03-10] MEDS ORDERED: FAMOTIDINE 20 MG/2 ML VIAL IV SCH (23:00)
[2020-03-10 23:10] VITALS: BP 132/64
[2020-03-10 23:37] LABS: Calcium 6.8 MG/DL (8.5-10.1); Osmolality,Calculated 352.2 MOS/KG (273-304)
[2020-03-11] MEDS: SODIUM BICARB INJ 100 MEQ in STERILE WATER INJ 400 ML IV SCH ×2 (01:18→03:28)
[2020-03-11] MEDS: SODIUM CHLORIDE 0.9% 1,000 ML IV SCH ×2 (01:31→03:31)
[2020-03-11 02:06] LABS: Calcium 6.7 MG/DL (8.5-10.1); Osmolality,Calculated 348.5 MOS/KG (273-304)
[2020-03-11] MEDS: DOPamine 800 MG/250 ML PREMIX IV SCH (02:07)
[2020-03-11] MEDS: cefTRIAXone 1,000 MG in SYRINGE 1 EACH IV SCH (02:16)
[2020-03-11] MEDS ORDERED: SODIUM CHLORIDE 0.9% 1,000 ML IV SCH (02:39)
[2020-03-11 02:47] LABS: ABG Base Excess -4.2 MMOL/L (-2.5-2.5); ABG Oxygen Saturation 86.1 % (95-100); ABG PCO2 53.3 MM HG (35-48); ABG PH 7.253 (7.35-7.45); ABG PO2 53.6 MM HG (80-95); ABG TCO2 24.6 MMOL/L (23-27); Allen Test Positive; Pt O2 Delivery Device Ventilator
[2020-03-11 06:48] LABS: ABG Base Excess -3.9 MMOL/L (-2.5-2.5); ABG HCO3 21.2 MMOL/L (20-26); ABG Oxygen Saturation 99.9 % (95-100); ABG PCO2 33.5 MM HG (35-48); ABG PH 7.391 (7.35-7.45); ABG TCO2 18.6 MMOL/L (23-27)
[2020-03-11 06:57] LABS: Basophils % 0.2 % (0.0-0.8); Eosinophils % 0.1 % (0.00-10.9); Hematocrit 28.2 VOL% (42.0-52.0); Hemoglobin 9.7 GM/DL (14.0-18.0); Immature Granulocytes % 1.8 %; Immature Granulocytes Absolute 0.22 #; Lymphocytes # 1.2 10*3/uL (1.4-4.0); Lymphocytes % 9.7 % (21.2-54.2); Mean Corpuscular HGB Conc 34.4 GM/DL (32-36); Mean Corpuscular Volume 86.8 FL (87-102); Mean Platelet Volume 10.5 FL (9.6-12.0); Monocytes % 4.1 % (1.7-12.7); Neutrophils % 84.1 % (38.7-73.9); Platelet Count 224 T/CUMM (130-400); Red Blood Count 3.25 MC/CUMM (3.8-5.5); Red Cell Distribution Width 13.3 % (9.3-17.3); White Blood Count 12.2 T/CUMM (4-12)
[2020-03-11 07:48] LABS: Calcium 6.5 MG/DL (8.5-10.1); Osmolality,Calculated 341.7 MOS/KG (273-304)
[2020-03-11] MEDS: ENOXAPARIN 30 MG/0.3 ML SYRINGE SUBCUT SCH (09:23)
[2020-03-11] MEDS: POTASSIUM CHLORIDE 20 MEQ/15 ML UDCUP PER TUBE SCH ×4 (09:24→21:53)
[2020-03-11] MEDS: INSULIN GLARGINE 100 UNIT/ML SUBCUT SCH (09:24)
[2020-03-11 10:30] LABS: Calcium 6.7 MG/DL (8.5-10.1); Osmolality,Calculated 340.4 MOS/KG (273-304)
[2020-03-11] MEDS ORDERED: INSULIN REGULAR 100 UNIT/ML IV ONE (10:50)
[2020-03-11] MEDS: LACTATED RINGERS 1,000 ML IV SCH ×2 (11:00→16:35)
[2020-03-11 14:08] LABS: Osmolality,Calculated 336.1 MOS/KG (273-304)
[2020-03-11] MEDS ORDERED: SODIUM CHLORIDE 0.45% 1,000 ML IV SCH (14:39)
[2020-03-11 18:02] LABS: Calcium 6.8 MG/DL (8.5-10.1); Osmolality,Calculated 331.7 MOS/KG (273-304)
[2020-03-11 21:27] LABS: Osmolality,Calculated 326.4 MOS/KG (273-304)
[2020-03-11] MEDS ORDERED: FAMOTIDINE 20 MG/2 ML VIAL IV SCH (23:00)
[2020-03-12] MEDS: DOPamine 800 MG/250 ML PREMIX IV SCH (00:28)
[2020-03-12] MEDS: LACTATED RINGERS 1,000 ML IV SCH (00:29)
[2020-03-12] MEDS: cefTRIAXone 1,000 MG in SYRINGE 1 EACH IV SCH (00:29)
[2020-03-12] MEDS: POTASSIUM CHLORIDE 20 MEQ/15 ML UDCUP PER TUBE SCH (00:29)
[2020-03-12] MEDS: DEXTROSE 5% LACTATED RINGERS 1,000 ML IV SCH ×2 (00:35→07:33)
[2020-03-12 01:38] LABS: Calcium 7.2 MG/DL (8.5-10.1); Osmolality,Calculated 324.2 MOS/KG (273-304)
[2020-03-12 03:20] LABS: ABG Base Excess 5.1 MMOL/L (-2.5-2.5); ABG Oxygen Saturation 98.3 % (95-100); ABG PH 7.447 (7.35-7.45); ABG TCO2 26.9 MMOL/L (23-27)
[2020-03-12 05:13] LABS: Basophils % 0.2 % (0.0-0.8); Eosinophils % 0.1 % (0.00-10.9); Hematocrit 28.7 VOL% (42.0-52.0); Hemoglobin 9.9 GM/DL (14.0-18.0); Immature Granulocytes % 0.5 %; Immature Granulocytes Absolute 0.06 #; Lymphocytes # 0.8 10*3/uL (1.4-4.0); Lymphocytes % 6.8 % (21.2-54.2); Mean Corpuscular HGB Conc 34.5 GM/DL (32-36); Mean Corpuscular Volume 86.4 FL (87-102); Mean Platelet Volume 9.9 FL (9.6-12.0); Monocytes % 8.2 % (1.7-12.7); Neutrophils % 84.2 % (38.7-73.9); Platelet Count 186 T/CUMM (130-400); Red Blood Count 3.32 MC/CUMM (3.8-5.5); Red Cell Distribution Width 14.2 % (9.3-17.3); White Blood Count 12.3 T/CUMM (4-12)
[2020-03-12 05:27] LABS: Calcium 7.4 MG/DL (8.5-10.1); Osmolality,Calculated 322.2 MOS/KG (273-304)
[2020-03-12 07:44] LABS: Calcium 7.4 MG/DL (8.5-10.1); Osmolality,Calculated 319.3 MOS/KG (273-304)
[2020-03-12] MEDS: ENOXAPARIN 30 MG/0.3 ML SYRINGE SUBCUT SCH (08:04)
[2020-03-12] MEDS: INSULIN GLARGINE 100 UNIT/ML SUBCUT SCH (08:05)
[2020-03-12] MEDS: DEXT 5% NACL 0.45% KCL 20 MEQ 20 MEQ/1,000 ML BAG IV SCH ×2 (08:51→22:45)
[2020-03-12] MEDS: POTASSIUM CHLORIDE 20 MEQ TABLET PO SCH ×4 (08:52→20:24)
[2020-03-12] MEDS: PANTOPRAZOLE 40 MG TABLET PO SCH (09:12)
[2020-03-12] MEDS: ENOXAPARIN 40 MG/0.4 ML SYRINGE SUBCUT SCH (09:12)
[2020-03-12] MEDS: INSULIN LISPRO 100 UNIT/ML SUBCUT SCH ×3 (12:03→20:24)
[2020-03-12 14:37] LABS: Calcium 7.7 MG/DL (8.5-10.1); Osmolality,Calculated 309.4 MOS/KG (273-304)
[2020-03-12] MEDS ORDERED: NIFEdipine 10 MG CAPSULE PO ONE (16:56)
[2020-03-12] MEDS: NIFEdipine 10 MG CAPSULE PO SCH (17:05)
[2020-03-13] MEDS: cefTRIAXone 1,000 MG in SYRINGE 1 EACH IV SCH (00:35)
[2020-03-13] MEDS: NIFEdipine 10 MG CAPSULE PO SCH ×2 (00:35→05:30)
[2020-03-13] MEDS: INSULIN LISPRO 100 UNIT/ML SUBCUT SCH ×4 (00:40→11:31)
[2020-03-13 05:24] LABS: Osmolality,Calculated 299.3 MOS/KG (273-304)
[2020-03-13] MEDS ORDERED: ACETAMINOPHEN 325 MG TABLET PO PRN (06:40)
[2020-03-13] MEDS: INSULIN GLARGINE 100 UNIT/ML SUBCUT SCH (08:11)
[2020-03-13] MEDS: POTASSIUM CHLORIDE 20 MEQ TABLET PO SCH ×2 (08:11→11:31)
[2020-03-13] MEDS: ENOXAPARIN 40 MG/0.4 ML SYRINGE SUBCUT SCH (08:11)
[2020-03-13] MEDS: PANTOPRAZOLE 40 MG TABLET PO SCH (08:12)
[2020-03-13] MEDS ORDERED: ASPIRIN EC 81 MG TABLET PO SCH (09:00)
[2020-03-13] MEDS ORDERED: ATORVASTATIN 40 MG TABLET PO SCH (21:00)
== END 2020-03-13 12:26 | disposition home or self-care (01) | DRG 637 ==
LOC: EDUNIT# → EDBD → N.ED 20:18 → N.EDINP 21:37 → SUATTDRO 21:37 → N.ICU 22:19
PROVIDERS: ADMIT Internal Medicine; ATTEND Internal Medicine Geriatric Medicine

== ENCOUNTER 2020-03-19 23:19 | Inpatient (IN) ==
[2020-03-19] MEDS ORDERED: SODIUM CHLORIDE 0.9% 1,000 ML IV STA (23:51)
[2020-03-19 23:59] LABS: ABG HCO3 25.3 MMOL/L (20-26); ABG Oxygen Saturation 95.3 % (95-100); ABG PCO2 48.3 MM HG (35-48); ABG PH 7.358 (7.35-7.45); ABG PO2 81.8 MM HG (80-95); ABG TCO2 24.2 MMOL/L (23-27); Allen Test Positive; Pt O2 Delivery Device Room Air
[2020-03-20] LABS: Hematocrit 42.3 VOL% (42.0-52.0); Hemoglobin 12.6 GM/DL (14.0-18.0); Immature Granulocytes % 0.9 %; Immature Granulocytes Absolute 0.04 #; Lymphocytes # 0.5 10*3/uL (1.4-4.0); Lymphocytes % 10.8 % (21.2-54.2); Mean Corpuscular HGB Conc 29.8 GM/DL (32-36); Mean Corpuscular Volume 100.5 FL (87-102); Monocytes % 6.9 % (1.7-12.7); Neutrophils % 81.4 % (38.7-73.9); Platelet Count 508 T/CUMM (130-400); Red Blood Count 4.21 MC/CUMM (3.8-5.5); Red Cell Distribution Width 13.3 % (9.3-17.3); White Blood Count 4.6 T/CUMM (4-12)
[2020-03-20 00:05] LABS: Bilirubin,Urine Negative (Negative); Blood, Urine Negative (Negative); Glucose,Urine (UA) >=500 mg/dL (Negative); Ketones,Urine 5 mg/dL (Negative); Nitrite,Urine Negative (Negative); Protein,Urine Negative; RBC,Urine <1 /HPF (0-4); Urine Appearance CLEAR (Clear); Urine Color Colorless (Yellow); Urine Specific Gravity 1.025 (1.001-1.035); Urine Urobilinogen < 2.0 EU/DL (0.2-1.0); WBC,Urine <1 /HPF (0-6)
[2020-03-20 00:11] LABS: INR 0.9; PT Patient Result 10.2 SECS (9.8-11.9)
[2020-03-20 00:17] LABS: Albumin 4.3 G/DL (3.4-5.0); Bilirubin,Total 1.2 MG/DL (0.2-1.0); Calcium 10.2 MG/DL (8.5-10.1); Osmolality,Calculated 343.6 MOS/KG (273-304)
[2020-03-20] MEDS ORDERED: INSULIN REGULAR 100 UNIT/ML IV STA (00:18)
[2020-03-20] MEDS ORDERED: INSULIN REGULAR DRIP 100 ML IV PRN ×2 (00:20→00:31)
[2020-03-20 00:33] LABS: Barbiturates Screen,Urine Negative (Negative); Benzodiazepines Screen,Urine Negative (Negative); Cannabinoid Screen,Urine Negative (Negative); Opiate Screen,Urine Negative (Negative); Phencyclidine Screen,Urine Negative (Negative)
[2020-03-20] MEDS ORDERED: POLYETHYLENE GLYCOL POWDER 17 GM PACK PO PRN (00:59)
[2020-03-20] MEDS ORDERED: NICOTINE 21 MG/24 HR PATCH TRANSDERM PRN (00:59)
[2020-03-20] MEDS ORDERED: SODIUM CHLORIDE 0.9% 1,000 ML IV SCH (01:00)
[2020-03-20] MEDS ORDERED: SODIUM CHLORIDE 0.9% 1,000 ML IV STA ×2 (03:03→04:13)
[2020-03-20 04:43] LABS: Basophils % 0.1 % (0.0-0.8); Hematocrit 33.6 VOL% (42.0-52.0); Hemoglobin 11.5 GM/DL (14.0-18.0); Immature Granulocytes % 1.1 %; Immature Granulocytes Absolute 0.09 #; Lymphocytes # 0.7 10*3/uL (1.4-4.0); Lymphocytes % 8.6 % (21.2-54.2); Mean Corpuscular HGB Conc 34.2 GM/DL (32-36); Mean Platelet Volume 9.6 FL (9.6-12.0); Monocytes % 12.3 % (1.7-12.7); Neutrophils % 77.9 % (38.7-73.9); Platelet Count 469 T/CUMM (130-400); Red Blood Count 3.86 MC/CUMM (3.8-5.5); Red Cell Distribution Width 13.2 % (9.3-17.3)
[2020-03-20 04:56] LABS: Albumin 3.7 G/DL (3.4-5.0); Bilirubin,Total 0.9 MG/DL (0.2-1.0); Calcium 9.4 MG/DL (8.5-10.1); Osmolality,Calculated 330.1 MOS/KG (273-304); Total Protein 7.2 G/DL (6.4-8.3)
[2020-03-20] MEDS ORDERED: SODIUM CHLORIDE 0.9% 1,000 ML IV ONE ×2 (07:43→07:44)
[2020-03-20] MEDS: SODIUM CHLORIDE 0.45% 1,000 ML IV SCH ×2 (08:00→16:13)
[2020-03-20] MEDS ORDERED: PANTOPRAZOLE 40 MG TABLET PO SCH (09:00)
[2020-03-20] MEDS: PANTOPRAZOLE 40 MG TABLET PO SCH (09:29)
[2020-03-20] MEDS: ENOXAPARIN 40 MG/0.4 ML SYRINGE SUBCUT SCH (09:30)
[2020-03-20 14:22] LABS: Basophils % 0.1 % (0.0-0.8); Hematocrit 26.6 VOL% (42.0-52.0); Hemoglobin 9.2 GM/DL (14.0-18.0); Immature Granulocytes % 0.6 %; Immature Granulocytes Absolute 0.09 #; Lymphocytes # 1.9 10*3/uL (1.4-4.0); Lymphocytes % 13.1 % (21.2-54.2); Mean Corpuscular HGB Conc 34.6 GM/DL (32-36); Mean Corpuscular Volume 87.2 FL (87-102); Mean Platelet Volume 9.4 FL (9.6-12.0); Monocytes % 11.1 % (1.7-12.7); Neutrophils % 75.1 % (38.7-73.9); Platelet Count 386 T/CUMM (130-400); Red Blood Count 3.05 MC/CUMM (3.8-5.5); Red Cell Distribution Width 13.7 % (9.3-17.3); White Blood Count 14.3 T/CUMM (4-12)
[2020-03-20] MEDS ORDERED: DEXTROSE 50% 25 GM/50 ML VIAL IV PRN (14:58)
[2020-03-20] MEDS ORDERED: GLUCAGON 1 MG VIAL IM PRN (14:58)
[2020-03-20] MEDS ORDERED: INSULIN GLARGINE 100 UNIT/ML SUBCUT SCH (15:00)
[2020-03-20 15:03] LABS: Calcium 8.3 MG/DL (8.5-10.1); Osmolality,Calculated 296.8 MOS/KG (273-304)
[2020-03-20] MEDS: INSULIN LISPRO 100 UNIT/ML SUBCUT SCH (15:57)
[2020-03-20] MEDS: INSULIN REGULAR 100 UNIT/ML SUBCUT SCH ×2 (16:12→21:37)
[2020-03-20] MEDS: POTASSIUM CHLORIDE 20 MEQ TABLET PO SCH ×2 (16:13→17:58)
[2020-03-20] MEDS: ASPIRIN EC 81 MG TABLET PO SCH (16:13)
[2020-03-20] MEDS: MEMANTINE 5 MG TABLET PO SCH (16:13)
[2020-03-20] MEDS: DULoxetine 30 MG CAPSULE PO SCH (16:13)
[2020-03-20 19:28] LABS: Calcium 8.2 MG/DL (8.5-10.1); Osmolality,Calculated 286.1 MOS/KG (273-304)
[2020-03-20] MEDS: ATORVASTATIN 40 MG TABLET PO SCH (21:37)
[2020-03-21] MEDS: SODIUM CHLORIDE 0.45% 1,000 ML IV SCH ×2 (01:08→08:25)
[2020-03-21 05:46] LABS: Basophils % 0.2 % (0.0-0.8); Eosinophils % 0.2 % (0.00-10.9); Hematocrit 27.2 VOL% (42.0-52.0); Hemoglobin 9.1 GM/DL (14.0-18.0); Immature Granulocytes % 0.6 %; Immature Granulocytes Absolute 0.07 #; Mean Corpuscular HGB Conc 33.5 GM/DL (32-36); Mean Platelet Volume 9.5 FL (9.6-12.0); Monocytes % 7.2 % (1.7-12.7); Neutrophils % 74.8 % (38.7-73.9); Platelet Count 385 T/CUMM (130-400); Red Blood Count 3.09 MC/CUMM (3.8-5.5); Red Cell Distribution Width 14.1 % (9.3-17.3); White Blood Count 11.5 T/CUMM (4-12)
[2020-03-21 06:04] LABS: Calcium 8.2 MG/DL (8.5-10.1); Osmolality,Calculated 281.8 MOS/KG (273-304)
[2020-03-21] MEDS: INSULIN REGULAR 100 UNIT/ML SUBCUT SCH ×4 (07:15→21:30)
[2020-03-21] MEDS ORDERED: INSULIN GLARGINE 100 UNIT/ML SUBCUT SCH ×2 (07:26→09:00)
[2020-03-21] MEDS: ENOXAPARIN 40 MG/0.4 ML SYRINGE SUBCUT SCH (08:50)
[2020-03-21] MEDS: PANTOPRAZOLE 40 MG TABLET PO SCH (08:50)
[2020-03-21] MEDS: MEMANTINE 5 MG TABLET PO SCH (08:50)
[2020-03-21] MEDS: DULoxetine 30 MG CAPSULE PO SCH (08:50)
[2020-03-21] MEDS: ASPIRIN EC 81 MG TABLET PO SCH (08:52)
[2020-03-21] MEDS ORDERED: INFLUENZA VIRUS VACCINE 0.5 ML SYRINGE IM ONE (15:53)
[2020-03-21] MEDS: ATORVASTATIN 40 MG TABLET PO SCH (22:01)
[2020-03-22 05:49] LABS: Eosinophils % 0.7 % (0.00-10.9); Hematocrit 28.2 VOL% (42.0-52.0); Hemoglobin 9.5 GM/DL (14.0-18.0); Immature Granulocytes % 0.7 %; Immature Granulocytes Absolute 0.04 #; Lymphocytes % 34.1 % (21.2-54.2); Mean Corpuscular HGB Conc 33.7 GM/DL (32-36); Mean Corpuscular Volume 89.2 FL (87-102); Mean Platelet Volume 9.7 FL (9.6-12.0); Monocytes % 10.4 % (1.7-12.7); Neutrophils % 54.1 % (38.7-73.9); Platelet Count 343 T/CUMM (130-400); Red Blood Count 3.16 MC/CUMM (3.8-5.5); Red Cell Distribution Width 14.2 % (9.3-17.3); White Blood Count 5.9 T/CUMM (4-12)
[2020-03-22 06:10] LABS: Calcium 8.6 MG/DL (8.5-10.1); Osmolality,Calculated 280.8 MOS/KG (273-304)
[2020-03-22 08:32] LABS: Bacteria,Urine Few /HPF (Few); Bilirubin,Urine Negative (Negative); Blood, Urine Small mg/dL (Negative); Glucose,Urine (UA) Negative (Negative); Ketones,Urine Negative (Negative); Nitrite,Urine Negative (Negative); Protein,Urine Negative; RBC,Urine 2 /HPF (0-4); Squamous Epithelial Cell,Urine Occasional /HPF (0-10); Urine Appearance CLEAR (Clear); Urine Color Straw (Yellow); Urine Specific Gravity 1.003 (1.001-1.035); Urine Urobilinogen < 2.0 EU/DL (0.2-1.0); WBC,Urine <1 /HPF (0-6)
[2020-03-22] MEDS: INSULIN REGULAR 100 UNIT/ML SUBCUT SCH ×4 (09:45→22:17)
[2020-03-22] MEDS: MEMANTINE 5 MG TABLET PO SCH (09:46)
[2020-03-22] MEDS: ENOXAPARIN 40 MG/0.4 ML SYRINGE SUBCUT SCH (09:46)
[2020-03-22] MEDS: ASPIRIN EC 81 MG TABLET PO SCH (09:46)
[2020-03-22] MEDS: DULoxetine 30 MG CAPSULE PO SCH (09:46)
[2020-03-22] MEDS: PANTOPRAZOLE 40 MG TABLET PO SCH (09:46)
[2020-03-22] MEDS: GABAPENTIN 300 MG CAPSULE PO PRN (16:53)
[2020-03-22] MEDS: ATORVASTATIN 40 MG TABLET PO SCH (22:16)
[2020-03-23 05:42] LABS: Basophils % 0.2 % (0.0-0.8); Eosinophils % 0.8 % (0.00-10.9); Hematocrit 29.4 VOL% (42.0-52.0); Hemoglobin 9.9 GM/DL (14.0-18.0); Immature Granulocytes % 0.4 %; Immature Granulocytes Absolute 0.02 #; Lymphocytes # 1.7 10*3/uL (1.4-4.0); Mean Corpuscular HGB Conc 33.7 GM/DL (32-36); Mean Corpuscular Volume 88.8 FL (87-102); Mean Platelet Volume 9.8 FL (9.6-12.0); Monocytes % 8.9 % (1.7-12.7); Neutrophils % 54.7 % (38.7-73.9); Platelet Count 355 T/CUMM (130-400); Red Blood Count 3.31 MC/CUMM (3.8-5.5); Red Cell Distribution Width 14.4 % (9.3-17.3); White Blood Count 4.8 T/CUMM (4-12)
[2020-03-23 05:46] LABS: Calcium 8.5 MG/DL (8.5-10.1)
[2020-03-23] MEDS: PANTOPRAZOLE 40 MG TABLET PO SCH (08:33)
[2020-03-23] MEDS: ASPIRIN EC 81 MG TABLET PO SCH (08:33)
[2020-03-23] MEDS: DULoxetine 30 MG CAPSULE PO SCH (08:33)
[2020-03-23] MEDS: MEMANTINE 5 MG TABLET PO SCH (08:33)
[2020-03-23] MEDS: ENOXAPARIN 40 MG/0.4 ML SYRINGE SUBCUT SCH (08:33)
[2020-03-23] MEDS: INSULIN REGULAR 100 UNIT/ML SUBCUT SCH ×4 (08:33→20:54)
[2020-03-23] MEDS: INSULIN GLARGINE 100 UNIT/ML SUBCUT SCH (11:04)
[2020-03-23] MEDS: GABAPENTIN 300 MG CAPSULE PO PRN (12:04)
[2020-03-23] MEDS: GABAPENTIN 300 MG CAPSULE PO SCH ×2 (17:22→20:54)
[2020-03-23] MEDS: ATORVASTATIN 40 MG TABLET PO SCH (20:54)
[2020-03-24 06:10] LABS: Basophils % 0.2 % (0.0-0.8); Eosinophils % 0.5 % (0.00-10.9); Hematocrit 31.5 VOL% (42.0-52.0); Hemoglobin 10.6 GM/DL (14.0-18.0); Immature Granulocytes % 0.9 %; Immature Granulocytes Absolute 0.05 #; Lymphocytes % 36.1 % (21.2-54.2); Mean Corpuscular HGB Conc 33.7 GM/DL (32-36); Mean Corpuscular Volume 89.5 FL (87-102); Mean Platelet Volume 9.6 FL (9.6-12.0); Neutrophils % 54.3 % (38.7-73.9); Platelet Count 342 T/CUMM (130-400); Red Blood Count 3.52 MC/CUMM (3.8-5.5); Red Cell Distribution Width 14.4 % (9.3-17.3); White Blood Count 5.6 T/CUMM (4-12)
[2020-03-24 06:36] LABS: Calcium 8.7 MG/DL (8.5-10.1)
[2020-03-24] MEDS: DULoxetine 30 MG CAPSULE PO SCH (10:17)
[2020-03-24] MEDS: ENOXAPARIN 40 MG/0.4 ML SYRINGE SUBCUT SCH (10:17)
[2020-03-24] MEDS: MEMANTINE 5 MG TABLET PO SCH (10:18)
[2020-03-24] MEDS: INSULIN GLARGINE 100 UNIT/ML SUBCUT SCH (10:18)
[2020-03-24] MEDS: ASPIRIN EC 81 MG TABLET PO SCH (10:18)
[2020-03-24] MEDS: GABAPENTIN 300 MG CAPSULE PO SCH ×3 (10:18→20:31)
[2020-03-24] MEDS: INSULIN REGULAR 100 UNIT/ML SUBCUT SCH ×2 (10:18→11:01)
[2020-03-24] MEDS: PANTOPRAZOLE 40 MG TABLET PO SCH (10:18)
[2020-03-24] MEDS ORDERED: INSULIN GLARGINE 100 UNIT/ML SUBCUT ONE (11:53)
[2020-03-24] MEDS: ONDANSETRON 4 MG/2 ML VIAL IV PRN (12:20)
[2020-03-24] MEDS: INSULIN LISPRO 100 UNIT/ML SUBCUT SCH ×3 (13:52→20:31)
[2020-03-24] MEDS ORDERED: TUBERCULIN SKIN TEST 0.1 ML SYRINGE INTRADERM ONE (16:01)
[2020-03-24] MEDS ORDERED: ACETAMINOPHEN 325 MG TABLET PO ONE (18:47)
[2020-03-24] MEDS: ATORVASTATIN 40 MG TABLET PO SCH (20:31)
[2020-03-24] MEDS ORDERED: MELATONIN 3 MG TABLET PO PRN (22:08)
[2020-03-25] MEDS: INSULIN LISPRO 100 UNIT/ML SUBCUT SCH ×7 (00:01→23:40)
[2020-03-25 06:21] LABS: Calcium 8.9 MG/DL (8.5-10.1); Osmolality,Calculated 288.4 MOS/KG (273-304)
[2020-03-25] MEDS: ENOXAPARIN 40 MG/0.4 ML SYRINGE SUBCUT SCH (10:16)
[2020-03-25] MEDS: GABAPENTIN 300 MG CAPSULE PO SCH ×3 (10:17→21:09)
[2020-03-25] MEDS: PANTOPRAZOLE 40 MG TABLET PO SCH (10:17)
[2020-03-25] MEDS: MEMANTINE 5 MG TABLET PO SCH (10:17)
[2020-03-25] MEDS: ASPIRIN EC 81 MG TABLET PO SCH (10:17)
[2020-03-25] MEDS: DULoxetine 30 MG CAPSULE PO SCH (10:17)
[2020-03-25] MEDS: INSULIN GLARGINE 100 UNIT/ML SUBCUT SCH (10:21)
[2020-03-25] MEDS: ATORVASTATIN 40 MG TABLET PO SCH (21:09)
[2020-03-26] MEDS: INSULIN LISPRO 100 UNIT/ML SUBCUT SCH ×3 (04:29→11:52)
[2020-03-26] MEDS: PANTOPRAZOLE 40 MG TABLET PO SCH (08:34)
[2020-03-26] MEDS: ASPIRIN EC 81 MG TABLET PO SCH (08:34)
[2020-03-26] MEDS: MEMANTINE 5 MG TABLET PO SCH (08:35)
[2020-03-26] MEDS: DULoxetine 30 MG CAPSULE PO SCH (08:35)
[2020-03-26] MEDS: ENOXAPARIN 40 MG/0.4 ML SYRINGE SUBCUT SCH (08:35)
[2020-03-26] MEDS: INSULIN GLARGINE 100 UNIT/ML SUBCUT SCH ×2 (08:36→11:52)
[2020-03-26] MEDS: GABAPENTIN 300 MG CAPSULE PO SCH (09:27)
[2020-03-26 12:35] VITALS: BP 136/59
[2020-03-26] MEDS: ONDANSETRON 4 MG/2 ML VIAL IV PRN (13:28)
== END 2020-03-26 13:25 | disposition home or self-care (01) | DRG 637 ==
LOC: EDUNIT# → EDBD → N.ED 23:19 → N.EDINP 03-20 00:55 → SUATTDRO 03-20 00:55 → N.ICU 03-20 14:32 → N.3E 03-20 20:15
PROVIDERS: ADMIT Internal Medicine; ATTEND Internal Medicine

== ENCOUNTER 2020-04-22 13:03 | Observation (INO) ==
[2020-04-22] MEDS ORDERED: SODIUM CHLORIDE 0.9% 1,000 ML IV STA ×2 (13:36→16:13)
[2020-04-22 15:04] LABS: Basophils % 0.2 % (0.0-0.8); Eosinophils % 0.1 % (0.00-10.9); Hematocrit 36.7 VOL% (42.0-52.0); Hemoglobin 12.5 GM/DL (14.0-18.0); Immature Granulocytes % 0.6 %; Immature Granulocytes Absolute 0.07 #; Lymphocytes % 9.3 % (21.2-54.2); Mean Corpuscular HGB Conc 34.1 GM/DL (32-36); Mean Corpuscular Volume 86.6 FL (87-102); Mean Platelet Volume 10.1 FL (9.6-12.0); Monocytes % 7.9 % (1.7-12.7); Neutrophils % 81.9 % (38.7-73.9); Platelet Count 370 T/CUMM (130-400); Red Blood Count 4.24 MC/CUMM (3.8-5.5); Red Cell Distribution Width 14.1 % (9.3-17.3); White Blood Count 10.9 T/CUMM (4-12)
[2020-04-22 15:24] LABS: Calcium 9.9 MG/DL (8.5-10.1); Osmolality,Calculated 292.5 MOS/KG (273-304)
[2020-04-22] MEDS ORDERED: INSULIN REGULAR 100 UNIT/ML IV STA (15:38)
[2020-04-22] MEDS ORDERED: ACETAMINOPHEN 325 MG TABLET PO ONE (16:14)
[2020-04-22] MEDS ORDERED: ACETAMINOPHEN 325 MG TABLET PO PRN (16:46)
[2020-04-22] MEDS ORDERED: ONDANSETRON 4 MG/2 ML VIAL IV PRN (16:46)
[2020-04-22] MEDS ORDERED: GLUCAGON 1 MG VIAL IM PRN ×2 (16:46)
[2020-04-22] MEDS ORDERED: DEXTROSE 50% 25 GM/50 ML VIAL IV PRN ×2 (16:46)
[2020-04-22] MEDS ORDERED: NICOTINE 21 MG/24 HR PATCH TRANSDERM PRN (16:53)
[2020-04-22] MEDS ORDERED: POLYETHYLENE GLYCOL POWDER 17 GM PACK PO PRN (16:53)
[2020-04-22] MEDS: ATORVASTATIN 40 MG TABLET PO SCH (20:44)
[2020-04-22] MEDS: GABAPENTIN 300 MG CAPSULE PO SCH (20:44)
[2020-04-22] MEDS: INSULIN LISPRO 100 UNIT/ML SUBCUT SCH (21:34)
[2020-04-22] MEDS: ENOXAPARIN 30 MG/0.3 ML SYRINGE SUBCUT SCH (22:36)
[2020-04-23] MEDS: INSULIN LISPRO 100 UNIT/ML SUBCUT SCH ×7 (00:40→21:31)
[2020-04-23 01:05] LABS: Calcium 9.1 MG/DL (8.5-10.1)
[2020-04-23 01:32] LABS: Basophils % 0.3 % (0.0-0.8); Eosinophils % 0.4 % (0.00-10.9); Hematocrit 33.8 VOL% (42.0-52.0); Hemoglobin 11.6 GM/DL (14.0-18.0); Immature Granulocytes % 1.5 %; Immature Granulocytes Absolute 0.15 #; Lymphocytes # 2.1 10*3/uL (1.4-4.0); Lymphocytes % 20.7 % (21.2-54.2); Mean Corpuscular HGB Conc 34.3 GM/DL (32-36); Mean Corpuscular Volume 88.3 FL (87-102); Monocytes % 8.5 % (1.7-12.7); Neutrophils % 68.6 % (38.7-73.9); Platelet Count 355 T/CUMM (130-400); Red Blood Count 3.83 MC/CUMM (3.8-5.5); Red Cell Distribution Width 14.6 % (9.3-17.3); White Blood Count 9.9 T/CUMM (4-12)
[2020-04-23] MEDS ORDERED: lisinopriL 2.5 MG TABLET PO SCH (09:00)
[2020-04-23] MEDS: DULoxetine 30 MG CAPSULE PO SCH (09:09)
[2020-04-23] MEDS: GABAPENTIN 300 MG CAPSULE PO SCH ×3 (09:09→21:31)
[2020-04-23] MEDS: MEMANTINE 5 MG TABLET PO SCH (09:09)
[2020-04-23] MEDS: PANTOPRAZOLE 40 MG TABLET PO SCH (09:09)
[2020-04-23] MEDS: ASPIRIN EC 81 MG TABLET PO SCH (09:10)
[2020-04-23] MEDS ORDERED: INSULIN ASPART PROTAMINE/ASPART 70/30 100 UNIT/ML SUBCUT SCH ×3 (09:30→16:30)
[2020-04-23] MEDS: SODIUM CHLORIDE 0.9% 1,000 ML IV SCH ×3 (10:14→22:31)
[2020-04-23] MEDS: INSULIN REGULAR 100 UNIT/ML SUBCUT SCH ×2 (11:27→15:37)
[2020-04-23] MEDS: ATORVASTATIN 40 MG TABLET PO SCH (21:31)
[2020-04-23] MEDS: ENOXAPARIN 30 MG/0.3 ML SYRINGE SUBCUT SCH (21:32)
[2020-04-23] MEDS ORDERED: traZODone 50 MG TABLET PO ONE (23:04)
[2020-04-24] MEDS: INSULIN LISPRO 100 UNIT/ML SUBCUT SCH ×2 (01:18→05:50)
[2020-04-24 06:54] LABS: Calcium 8.1 MG/DL (8.5-10.1); Osmolality,Calculated 285.7 MOS/KG (273-304)
[2020-04-24] MEDS ORDERED: INSULIN ASPART PROTAMINE/ASPART 70/30 100 UNIT/ML SUBCUT SCH ×2 (07:30→16:30)
[2020-04-24] MEDS: INSULIN REGULAR 100 UNIT/ML SUBCUT SCH ×2 (07:39→10:57)
[2020-04-24] MEDS: GABAPENTIN 300 MG CAPSULE PO SCH (08:46)
[2020-04-24] MEDS: DULoxetine 30 MG CAPSULE PO SCH (08:46)
[2020-04-24] MEDS: MEMANTINE 5 MG TABLET PO SCH (08:47)
[2020-04-24] MEDS: ASPIRIN EC 81 MG TABLET PO SCH (08:47)
[2020-04-24] MEDS: PANTOPRAZOLE 40 MG TABLET PO SCH (08:47)
[2020-04-24 11:10] VITALS: BP 129/58
[2020-04-24] MEDS ORDERED: INSULIN LISPRO 100 UNIT/ML SUBCUT SCH (11:30)
== END 2020-04-24 12:25 | disposition home or self-care (01) ==
LOC: EDBD → EDUNIT# → N.ED 13:03 → N.EDINP 13:03 → N.3E 18:04
PROVIDERS: ADMIT Internal Medicine; ATTEND Internal Medicine

== ENCOUNTER 2020-06-22 12:36 | Inpatient (IN) ==
[2020-06-22] MEDS ORDERED: SODIUM CHLORIDE 0.9% 2,000 ML IV STA (12:59)
[2020-06-22 13:18] LABS: Basophils % 0.1 % (0.0-0.8); Eosinophils % 0.1 % (0.00-10.9); Hematocrit 37.2 VOL% (42.0-52.0); Hemoglobin 10.2 GM/DL (14.0-18.0); Immature Granulocytes % 3.1 %; Immature Granulocytes Absolute 0.63 #; Lymphocytes # 1.8 10*3/uL (1.4-4.0); Mean Corpuscular HGB Conc 27.4 GM/DL (32-36); Mean Corpuscular Volume 103.6 FL (87-102); Mean Platelet Volume 11.2 FL (9.6-12.0); Monocytes % 4.3 % (1.7-12.7); Neutrophils % 83.4 % (38.7-73.9); Platelet Count 287 T/CUMM (130-400); Red Blood Count 3.59 MC/CUMM (3.8-5.5); Red Cell Distribution Width 13.6 % (9.3-17.3); White Blood Count 20.3 T/CUMM (4-12)
[2020-06-22 13:25] LABS: ABG Base Excess -27.9 MMOL/L (-2.5-2.5); ABG HCO3 5.5 MMOL/L (20-26); ABG Oxygen Saturation 98.8 % (95-100)
[2020-06-22 13:28] LABS: ABG PCO2 20.4 MM HG (35-48); ABG PH 6.893 (7.35-7.45)
[2020-06-22] MEDS ORDERED: SODIUM BICARBONATE 50 MEQ/50 ML VIAL IV STA ×2 (13:28→14:05)
[2020-06-22 13:30] LABS: INR 1.2; PT Patient Result 12.4 SECS (9.8-11.9)
[2020-06-22 13:35] LABS: Bilirubin,Urine Negative (Negative); Blood, Urine Small mg/dL (Negative); Glucose,Urine (UA) >=500 mg/dL (Negative); Ketones,Urine 80 mg/dL (Negative); Nitrite,Urine Negative (Negative); Protein,Urine Negative; Urine Appearance CLEAR (Clear); Urine Color Straw (Yellow); Urine Specific Gravity 1.018 (1.001-1.035); Urine Urobilinogen < 2.0 EU/DL (0.2-1.0); WBC,Urine <1 /HPF (0-6)
[2020-06-22] MEDS ORDERED: INSULIN REGULAR 100 UNIT/ML IV ONE (13:43)
[2020-06-22 13:47] LABS: Lymphocytes 4 % (20-55); Platelet Estimate Adequate; Segmented Neutrophils 95 % (50-85); Total Cells Counted 100
[2020-06-22 13:50] LABS: Barbiturates Screen,Urine Negative (Negative); Benzodiazepines Screen,Urine Negative (Negative); Cannabinoid Screen,Urine Negative (Negative); Opiate Screen,Urine Negative (Negative); Phencyclidine Screen,Urine Negative (Negative)
[2020-06-22 13:56] LABS: Alanine Aminotransferase 34 U/L (16-61); Albumin 3.4 G/DL (3.4-5.0); Alkaline Phosphatase 169 U/L (45-117); Aspartate Amino Transferase 64 U/L (0-37); Blood Urea Nitrogen 91 MG/DL (7-18); Calcium 7.7 MG/DL (8.5-10.1); Carbon Dioxide 3 MMOL/L (21-32); Estimated Glom Filtration Rate 14 ML/MIN; Osmolality,Calculated 354.9 MOS/KG (273-304); Sodium 129 MMOL/L (136-145); Total Protein 6.2 G/DL (6.4-8.3)
[2020-06-22] MEDS ORDERED: ROCURONIUM 100 MG/10 ML VIAL IV ONE (13:56)
[2020-06-22] MEDS ORDERED: ETOMIDATE 20 MG/10 ML VIAL IV ONE (13:56)
[2020-06-22] MEDS ORDERED: SODIUM CHLORIDE 0.9% 1,000 ML IV STA (13:57)
[2020-06-22 13:58] LABS: Glucose 1349 MG/DL (74-106); Potassium 6.9 MMOL/L (3.5-5.1)
[2020-06-22] MEDS ORDERED: NOREPINEPHRINE 4 MG/4 ML VIAL IV ONE (14:02)
[2020-06-22] MEDS ORDERED: ONDANSETRON 4 MG/2 ML VIAL IV PRN (14:06)
[2020-06-22] MEDS ORDERED: ALBUTEROL 2.5 MG/3 ML NEB RESP TX PRN (14:06)
[2020-06-22] MEDS: NOREPINEPHRINE 8 MG in SODIUM CHLORIDE 0.9% 242 ML IV SCH (14:11)
[2020-06-22] MEDS ORDERED: SODIUM BICARB INJ 100 MEQ in STERILE WATER INJ 400 ML IV PRN (14:14)
[2020-06-22] MEDS ORDERED: SODIUM PHOSPHATE IV PRN (14:14)
[2020-06-22] MEDS ORDERED: MAGNESIUM SULF RIDER 4 GM in PREMIX 1 EACH IV PRN (14:14)
[2020-06-22] MEDS ORDERED: SODIUM CHLORIDE 0.9% IV PRN (14:14)
[2020-06-22] MEDS ORDERED: MAGNESIUM SULF RIDER 2 GM in PREMIX 1 EACH IV PRN (14:14)
[2020-06-22] MEDS ORDERED: DEXTROSE 50% 25 GM/50 ML VIAL IV PRN (14:14)
[2020-06-22] MEDS ORDERED: CALCIUM GLUCONATE 1,000 MG in SODIUM CHLORIDE 0.9% 100 ML IV ONE (14:24)
[2020-06-22] MEDS ORDERED: FAMOTIDINE 20 MG/2 ML VIAL IV SCH (14:30)
[2020-06-22] MEDS: SODIUM CHLORIDE 0.9% 1,000 ML IV SCH ×2 (15:39→20:40)
[2020-06-22] MEDS: INSULIN REGULAR DRIP 100 ML IV SCH ×2 (15:40→23:21)
[2020-06-22] MEDS: FAMOTIDINE 20 MG/2 ML VIAL IV SCH (15:40)
[2020-06-22] MEDS ORDERED: MIDAZOLAM 100 MG in SODIUM CHLORIDE 0.9% 80 ML IV PRN (15:56)
[2020-06-22 18:01] LABS: Calcium 7.2 MG/DL (8.5-10.1); Osmolality,Calculated 355.1 MOS/KG (273-304)
[2020-06-22 18:02] LABS: Potassium 6.2 MMOL/L (3.5-5.1)
[2020-06-22] MEDS: LACTATED RINGERS 1,000 ML IV SCH (20:00)
[2020-06-22 22:14] LABS: Osmolality,Calculated 354.4 MOS/KG (273-304); Potassium 4.1 MMOL/L (3.5-5.1)
[2020-06-22] MEDS ORDERED: LACTATED RINGERS 1,000 ML IV ONE (22:37)
[2020-06-23] MEDS: LACTATED RINGERS 1,000 ML IV SCH ×3 (00:01→12:46)
[2020-06-23] MEDS ORDERED: LORazepam 2 MG/1 ML VIAL ONE (00:57)
[2020-06-23] MEDS: LORazepam 2 MG/1 ML VIAL IV PRN (01:02)
[2020-06-23 04:11] LABS: Basophils % 0.1 % (0.0-0.8); Immature Granulocytes % 1.1 %; Immature Granulocytes Absolute 0.11 #; Lymphocytes # 0.3 10*3/uL (1.4-4.0); Lymphocytes % 3.4 % (21.2-54.2); Mean Corpuscular HGB Conc 32.3 GM/DL (32-36); Mean Corpuscular Volume 88.3 FL (87-102); Mean Platelet Volume 10.6 FL (9.6-12.0); Monocytes % 5.7 % (1.7-12.7); Neutrophils % 89.7 % (38.7-73.9); Red Blood Count 3.51 MC/CUMM (3.8-5.5); Red Cell Distribution Width 13.2 % (9.3-17.3)
[2020-06-23 04:12] LABS: Platelet Count 170 T/CUMM (130-400); White Blood Count 10.1 T/CUMM (4-12)
[2020-06-23 04:28] LABS: Band Neutrophils 1 % (0-10); Hypochromasia 1+; Lymphocytes 5 % (20-55); Microcytosis 1+; Ovalocytes Slight; Platelet Estimate Adequate; Segmented Neutrophils 91 % (50-85); Total Cells Counted 100
[2020-06-23 04:42] LABS: ABG Base Excess -9.1 MMOL/L (-2.5-2.5); ABG HCO3 14.8 MMOL/L (20-26); ABG Oxygen Saturation 98.4 % (95-100); ABG PCO2 26.1 MM HG (35-48); ABG PH 7.371 (7.35-7.45); ABG PO2 174.5 MM HG (80-95); ABG TCO2 15.6 MMOL/L (23-27)
[2020-06-23 04:50] LABS: Alanine Aminotransferase 71 U/L (16-61); Albumin 2.8 G/DL (3.4-5.0); Alkaline Phosphatase 138 U/L (45-117); Aspartate Amino Transferase 267 U/L (0-37); Bilirubin,Total < 0.39 MG/DL (0.2-1.0); Blood Urea Nitrogen 91 MG/DL (7-18); Calcium 6.8 MG/DL (8.5-10.1); Carbon Dioxide 16 MMOL/L (21-32); Estimated Glom Filtration Rate 14 ML/MIN; Glucose 330 MG/DL (74-106); Osmolality,Calculated 339.9 MOS/KG (273-304); Potassium 3.8 MMOL/L (3.5-5.1); Sodium 151 MMOL/L (136-145); Total Protein 5.4 G/DL (6.4-8.3)
[2020-06-23] MEDS ORDERED: DEXTROSE 5% LACTATED RINGERS 1,000 ML IV SCH (07:00)
[2020-06-23 08:14] LABS: Calcium 7.5 MG/DL (8.5-10.1); Osmolality,Calculated 332.7 MOS/KG (273-304); Potassium 3.7 MMOL/L (3.5-5.1)
[2020-06-23] MEDS: ACETAMINOPHEN 325 MG TABLET PO PRN (09:06)
[2020-06-23] MEDS ORDERED: SODIUM CHLORIDE 0.9% 1,000 ML IV ONE (10:00)
[2020-06-23] MEDS ORDERED: DEXTROSE 5% NACL 0.45% 1,000 ML IV SCH (10:00)
[2020-06-23] MEDS: PIPERACILLIN/TAZOBACTAM 3,375 MG in SODIUM CHLORIDE 0.9% 100 ML IV SCH ×2 (10:36→21:03)
[2020-06-23 11:41] LABS: Hepatitis B Core IgM Quant 0.08 Index; Hepatitis B Surface Ag Quant < 0.10 Index; Hepatitis B Surface Ag Result Non-Reactive (NonReactive); Hepatitis C Virus Ab Quant 0.05 Index; Hepatitis C Virus Ab Result Non-Reactive (NonReactive)
[2020-06-23 12:53] LABS: Calcium 6.9 MG/DL (8.5-10.1); Osmolality,Calculated 332.9 MOS/KG (273-304); Potassium 4.7 MMOL/L (3.5-5.1)
[2020-06-23 14:15] LABS: Acetaminophen 9.6 UG/ML (10-30); Salicylate < 2.8 MG/DL (2.8-20)
[2020-06-23] MEDS: INSULIN REGULAR DRIP 100 ML IV SCH (14:52)
[2020-06-23] MEDS: HEPARIN 5,000 UNIT/1 ML VIAL SUBCUT SCH (14:53)
[2020-06-23] MEDS: NOREPINEPHRINE 8 MG in SODIUM CHLORIDE 0.9% 242 ML IV SCH (14:54)
[2020-06-23] MEDS: FAMOTIDINE 20 MG/2 ML VIAL IV SCH (15:37)
[2020-06-23] MEDS: SODIUM BICARB INJ 100 MEQ in DEXTROSE 5% 1,000 ML IV SCH ×2 (15:52→21:35)
[2020-06-23 16:24] LABS: Calcium 7.1 MG/DL (8.5-10.1); Potassium 4.1 MMOL/L (3.5-5.1)
[2020-06-23 20:12] LABS: Calcium 7.1 MG/DL (8.5-10.1); Osmolality,Calculated 332.9 MOS/KG (273-304); Potassium 4.4 MMOL/L (3.5-5.1)
[2020-06-24] MEDS: LORazepam 2 MG/1 ML VIAL IV PRN ×2 (01:58→08:24)
[2020-06-24] MEDS: HEPARIN 5,000 UNIT/1 ML VIAL SUBCUT SCH ×2 (02:24→14:51)
[2020-06-24] MEDS: SODIUM BICARB INJ 100 MEQ in DEXTROSE 5% 1,000 ML IV SCH ×3 (03:21→17:10)
[2020-06-24 04:42] LABS: Allen Test Positive; Pt O2 Delivery Device Ventilator
[2020-06-24 04:43] LABS: ABG Base Excess -2.7 MMOL/L (-2.5-2.5); ABG HCO3 19.8 MMOL/L (20-26); ABG Oxygen Saturation 95.4 % (95-100); ABG PH 7.483 (7.35-7.45); ABG PO2 77.8 MM HG (80-95); ABG TCO2 20.6 MMOL/L (23-27)
[2020-06-24 04:50] LABS: Basophils % 0.1 % (0.0-0.8); Hematocrit 29.3 VOL% (42.0-52.0); Hemoglobin 9.8 GM/DL (14.0-18.0); Immature Granulocytes % 2.4 %; Immature Granulocytes Absolute 0.24 #; Lymphocytes # 0.4 10*3/uL (1.4-4.0); Lymphocytes % 4.4 % (21.2-54.2); Mean Corpuscular HGB Conc 33.4 GM/DL (32-36); Mean Corpuscular Volume 84.2 FL (87-102); Mean Platelet Volume 10.9 FL (9.6-12.0); Monocytes % 5.6 % (1.7-12.7); Neutrophils % 87.5 % (38.7-73.9); Platelet Count 134 T/CUMM (130-400); Red Blood Count 3.48 MC/CUMM (3.8-5.5); Red Cell Distribution Width 13.9 % (9.3-17.3); White Blood Count 9.9 T/CUMM (4-12)
[2020-06-24 05:09] LABS: Band Neutrophils 10 % (0-10); Hypochromasia Slight; Lymphocytes 11 % (20-55); Metamyelocytes 1 %; Microcytosis Slight; Platelet Estimate Normal; Segmented Neutrophils 75 % (50-85); Total Cells Counted 100
[2020-06-24 05:13] LABS: Risk Ratio 1.49; VLDL CHOLESTEROL 11.6 MG/DL
[2020-06-24 05:31] LABS: Albumin 2.2 G/DL (3.4-5.0); Bilirubin,Total 0.5 MG/DL (0.2-1.0); Calcium 6.7 MG/DL (8.5-10.1); Osmolality,Calculated 329.3 MOS/KG (273-304); Potassium 3.6 MMOL/L (3.5-5.1); Total Protein 4.7 G/DL (6.4-8.3)
[2020-06-24] MEDS ORDERED: ASPIRIN EC 81 MG TABLET PO SCH (09:00)
[2020-06-24] MEDS: PIPERACILLIN/TAZOBACTAM 3,375 MG in SODIUM CHLORIDE 0.9% 100 ML IV SCH ×2 (09:01→21:06)
[2020-06-24] MEDS: METOPROLOL TARTRATE 25 MG TABLET PO SCH ×2 (09:01→21:06)
[2020-06-24] MEDS: LINEZOLID INJ 600 MG in PREMIX 1 EACH IV SCH ×2 (11:14→21:30)
[2020-06-24] MEDS ORDERED: GLUCAGON 1 MG VIAL IM PRN (12:16)
[2020-06-24] MEDS: INSULIN LISPRO 100 UNIT/ML SUBCUT SCH ×3 (12:51→20:58)
[2020-06-24] MEDS: FAMOTIDINE 20 MG/2 ML VIAL IV SCH (14:52)
[2020-06-24] MEDS: SODIUM BICARB INJ 100 MEQ in STERILE WATER INJ 1,000 ML IV SCH (18:48)
[2020-06-24] MEDS: INSULIN GLARGINE 100 UNIT/ML SUBCUT SCH (21:06)
[2020-06-24] MEDS: DESITIN 4OZ/NYSTATIN 15 GRAM MIXTURE PASTE TOP SCH (21:06)
[2020-06-25] MEDS: HEPARIN 5,000 UNIT/1 ML VIAL SUBCUT SCH (01:00)
[2020-06-25] MEDS: INSULIN LISPRO 100 UNIT/ML SUBCUT SCH ×7 (01:17→23:34)
[2020-06-25] MEDS: SODIUM BICARB INJ 100 MEQ in STERILE WATER INJ 1,000 ML IV SCH ×2 (02:00→09:49)
[2020-06-25 04:46] LABS: ABG Base Excess 8.7 MMOL/L (-2.5-2.5); ABG HCO3 30.9 MMOL/L (20-26); ABG Oxygen Saturation 97.9 % (95-100); ABG PCO2 33.6 MM HG (35-48); ABG PH 7.582 (7.35-7.45); ABG PO2 121.6 MM HG (80-95); Allen Test Positive; Pt O2 Delivery Device Ventilator
[2020-06-25 05:04] LABS: Basophils % 0.1 % (0.0-0.8); Hematocrit 22.6 VOL% (42.0-52.0); Immature Granulocytes % 0.4 %; Immature Granulocytes Absolute 0.04 #; Lymphocytes # 0.8 10*3/uL (1.4-4.0); Lymphocytes % 7.8 % (21.2-54.2); Mean Corpuscular HGB Conc 34.5 GM/DL (32-36); Mean Corpuscular Volume 83.4 FL (87-102); Monocytes % 4.7 % (1.7-12.7); Red Cell Distribution Width 14.1 % (9.3-17.3); White Blood Count 9.7 T/CUMM (4-12)
[2020-06-25 05:06] LABS: Hemoglobin 7.8 GM/DL (14.0-18.0); Platelet Count 65 T/CUMM (130-400); Red Blood Count 2.71 MC/CUMM (3.8-5.5)
[2020-06-25 05:24] LABS: Band Neutrophils 4 % (0-10); Hypochromasia 2+; Lymphocytes 8 % (20-55); Platelet Estimate Decreased; Segmented Neutrophils 85 % (50-85); Total Cells Counted 100
[2020-06-25 05:25] LABS: Microcytosis Slight
[2020-06-25 05:38] LABS: Albumin 1.6 G/DL (3.4-5.0); Bilirubin,Total 0.5 MG/DL (0.2-1.0); Calcium 5.9 MG/DL (8.5-10.1); Osmolality,Calculated 290.2 MOS/KG (273-304); Potassium 2.7 MMOL/L (3.5-5.1); Total Protein 2.3 G/DL (6.4-8.3)
[2020-06-25] MEDS: DEXTROSE 50% 25 GM/50 ML VIAL IV PRN (07:06)
[2020-06-25] MEDS: METOPROLOL TARTRATE 25 MG TABLET PO SCH ×2 (09:33→20:34)
[2020-06-25] MEDS: LINEZOLID INJ 600 MG in PREMIX 1 EACH IV SCH (09:38)
[2020-06-25] MEDS: DESITIN 4OZ/NYSTATIN 15 GRAM MIXTURE PASTE TOP SCH ×2 (09:50→20:37)
[2020-06-25] MEDS: ASPIRIN CHEW 81 MG TABLET PO SCH (09:50)
[2020-06-25] MEDS: SODIUM CHLORIDE 0.9% 1,000 ML IV SCH ×2 (10:45→20:36)
[2020-06-25] MEDS: PANTOPRAZOLE 40 MG VIAL IV SCH ×2 (10:50→20:34)
[2020-06-25] MEDS: PIPERACILLIN/TAZOBACTAM 3,375 MG in SODIUM CHLORIDE 0.9% 100 ML IV SCH (11:00)
[2020-06-25] MEDS ORDERED: SODIUM CHLORIDE 0.9% 1,000 ML IV PRN (11:38)
[2020-06-25 12:11] LABS: Basophils % 0.2 % (0.0-0.8); Eosinophils % 0.1 % (0.00-10.9); Hematocrit 27.3 VOL% (42.0-52.0); Hemoglobin 9.3 GM/DL (14.0-18.0); Immature Granulocytes % 0.4 %; Immature Granulocytes Absolute 0.05 #; Lymphocytes % 8.1 % (21.2-54.2); Mean Corpuscular HGB Conc 34.1 GM/DL (32-36); Mean Corpuscular Volume 83.2 FL (87-102); Mean Platelet Volume 10.1 FL (9.6-12.0); Monocytes % 5.5 % (1.7-12.7); Neutrophils % 85.7 % (38.7-73.9); Platelet Count 80 T/CUMM (130-400); Red Blood Count 3.28 MC/CUMM (3.8-5.5); Red Cell Distribution Width 14.1 % (9.3-17.3); White Blood Count 12.6 T/CUMM (4-12)
[2020-06-25] MEDS: CEFTAROLINE 300 MG in SODIUM CHLORIDE 0.9% 100 ML IV SCH ×2 (12:30→23:20)
[2020-06-25 12:47] LABS: Anisocytosis 2+; Platelet Estimate Decreased
[2020-06-25] MEDS: POTASSIUM CHLORIDE RIDER 10 MEQ in PREMIX 1 EACH IV PRN ×5 (13:26→18:15)
[2020-06-25] MEDS: POTASSIUM CHLORIDE 20 MEQ/15 ML UDCUP PER TUBE SCH ×2 (14:57→20:34)
[2020-06-25 17:58] LABS: Basophils % 0.1 % (0.0-0.8); Eosinophils % 0.1 % (0.00-10.9); Hematocrit 27.5 VOL% (42.0-52.0); Immature Granulocytes % 0.2 %; Immature Granulocytes Absolute 0.03 #; Lymphocytes # 0.8 10*3/uL (1.4-4.0); Lymphocytes % 6.6 % (21.2-54.2); Mean Corpuscular HGB Conc 32.7 GM/DL (32-36); Mean Corpuscular Volume 85.9 FL (87-102); Mean Platelet Volume 10.9 FL (9.6-12.0); Platelet Count 72 T/CUMM (130-400); White Blood Count 12.1 T/CUMM (4-12)
[2020-06-25] MEDS: INSULIN GLARGINE 100 UNIT/ML SUBCUT SCH (20:35)
[2020-06-25 21:42] LABS: Hypochromasia 1+; Microcytosis Slight
[2020-06-25 21:43] LABS: Platelet Estimate Adequate
[2020-06-26] MEDS: POTASSIUM CHLORIDE RIDER 10 MEQ in PREMIX 1 EACH IV PRN ×3 (00:22→06:06)
[2020-06-26 01:00] LABS: Basophils % 0.1 % (0.0-0.8); Eosinophils % 0.1 % (0.00-10.9); Hematocrit 28.3 VOL% (42.0-52.0); Hemoglobin 9.3 GM/DL (14.0-18.0); Immature Granulocytes % 0.4 %; Immature Granulocytes Absolute 0.04 #; Lymphocytes # 0.7 10*3/uL (1.4-4.0); Lymphocytes % 6.9 % (21.2-54.2); Mean Corpuscular HGB Conc 32.9 GM/DL (32-36); Mean Corpuscular Volume 87.3 FL (87-102); Mean Platelet Volume 11.8 FL (9.6-12.0); Monocytes % 4.6 % (1.7-12.7); Neutrophils % 87.9 % (38.7-73.9); Platelet Count 68 T/CUMM (130-400); Red Blood Count 3.24 MC/CUMM (3.8-5.5); Red Cell Distribution Width 14.4 % (9.3-17.3); White Blood Count 9.4 T/CUMM (4-12)
[2020-06-26] MEDS: LORazepam 2 MG/1 ML VIAL IV PRN ×2 (01:35→15:57)
[2020-06-26 03:30] LABS: ABG Base Excess 6.3 MMOL/L (-2.5-2.5); ABG HCO3 29.2 MMOL/L (20-26); ABG Oxygen Saturation 97.8 % (95-100); ABG PCO2 35.3 MM HG (35-48); ABG PH 7.535 (7.35-7.45); ABG PO2 127.1 MM HG (80-95); ABG TCO2 30.3 MMOL/L (23-27)
[2020-06-26] MEDS: DEXTROSE 50% 25 GM/50 ML VIAL IV PRN (04:11)
[2020-06-26] MEDS: INSULIN LISPRO 100 UNIT/ML SUBCUT SCH ×5 (04:11→20:38)
[2020-06-26 04:43] LABS: Eosinophils % 0.2 % (0.00-10.9); Hematocrit 27.6 VOL% (42.0-52.0); Hemoglobin 8.8 GM/DL (14.0-18.0); Immature Granulocytes % 0.4 %; Immature Granulocytes Absolute 0.04 #; Lymphocytes # 0.7 10*3/uL (1.4-4.0); Lymphocytes % 6.8 % (21.2-54.2); Mean Corpuscular HGB Conc 31.9 GM/DL (32-36); Mean Corpuscular Volume 88.5 FL (87-102); Mean Platelet Volume 11.8 FL (9.6-12.0); Monocytes % 5.3 % (1.7-12.7); Neutrophils % 87.3 % (38.7-73.9); Platelet Count 69 T/CUMM (130-400); Red Blood Count 3.12 MC/CUMM (3.8-5.5); Red Cell Distribution Width 14.2 % (9.3-17.3); White Blood Count 9.6 T/CUMM (4-12)
[2020-06-26 04:56] LABS: PT Patient Result 10.5 SECS (9.8-11.9); Partial Thromboplastin Time 27.2 SECS (23.9-33.8)
[2020-06-26 05:14] LABS: Albumin 1.8 G/DL (3.4-5.0); Bilirubin,Total 0.7 MG/DL (0.2-1.0); Calcium 6.9 MG/DL (8.5-10.1); Osmolality,Calculated 323.3 MOS/KG (273-304); Potassium 3.7 MMOL/L (3.5-5.1); Total Protein 5.2 G/DL (6.4-8.3)
[2020-06-26] MEDS: SODIUM CHLORIDE 0.9% 1,000 ML IV SCH (06:08)
[2020-06-26] MEDS ORDERED: LACTATED RINGERS 1,000 ML IV SCH (08:00)
[2020-06-26] MEDS ORDERED: LACTULOSE 20 GM/30 ML UDCUP PER TUBE SCH (09:00)
[2020-06-26] MEDS: SODIUM CHLORIDE 0.45% 1,000 ML IV SCH ×2 (09:10→19:02)
[2020-06-26] MEDS: DESITIN 4OZ/NYSTATIN 15 GRAM MIXTURE PASTE TOP SCH ×2 (09:11→20:40)
[2020-06-26] MEDS: PANTOPRAZOLE 40 MG VIAL IV SCH ×2 (09:17→20:40)
[2020-06-26] MEDS: PIPERACILLIN/TAZOBACTAM 3,375 MG in SODIUM CHLORIDE 0.9% 100 ML IV SCH ×2 (09:20→20:43)
[2020-06-26] MEDS ORDERED: propofoL 200 MG/20 ML VIAL IV ONE (10:49)
[2020-06-26] MEDS ORDERED: LIDOCAINE 2% 5 ML VIAL ONE (10:49)
[2020-06-26] MEDS ORDERED: ETOMIDATE 40 MG/20 ML VIAL IV ONE (10:50)
[2020-06-26] MEDS: POTASSIUM CHLORIDE 20 MEQ/15 ML UDCUP PER TUBE SCH ×3 (10:58→20:39)
[2020-06-26] MEDS: METOPROLOL TARTRATE 25 MG TABLET PO SCH ×2 (10:58→20:39)
[2020-06-26] MEDS: ERGOCALCIFEROL 50,000 UNIT CAPSULE PO SCH (11:02)
[2020-06-26] MEDS: ASPIRIN CHEW 81 MG TABLET PO SCH (15:45)
[2020-06-26] MEDS ORDERED: LORazepam 2 MG/1 ML VIAL ONE (15:55)
[2020-06-26] MEDS: INSULIN GLARGINE 100 UNIT/ML SUBCUT SCH (20:38)
[2020-06-26] MEDS: CALCIUM CARBONATE CHEW 500 MG TABLET PO SCH (20:39)
[2020-06-26] MEDS: LACTULOSE 20 GM/30 ML UDCUP PER TUBE SCH (20:39)
[2020-06-27] MEDS: INSULIN LISPRO 100 UNIT/ML SUBCUT SCH ×6 (00:43→21:01)
[2020-06-27] MEDS: MORPHINE 4 MG/1 ML VIAL IV PRN ×2 (00:44→08:57)
[2020-06-27 03:42] LABS: ABG Base Excess 4.4 MMOL/L (-2.5-2.5); ABG HCO3 28.4 MMOL/L (20-26); ABG Oxygen Saturation 99.3 % (95-100); ABG PH 7.453 (7.35-7.45); ABG TCO2 25.3 MMOL/L (23-27)
[2020-06-27 04:38] LABS: Basophils % 0.2 % (0.0-0.8); Eosinophils # 0.1 10*3/uL (0.0-0.87); Hematocrit 29.2 VOL% (42.0-52.0); Hemoglobin 9.5 GM/DL (14.0-18.0); Immature Granulocytes % 0.8 %; Immature Granulocytes Absolute 0.05 #; Lymphocytes # 0.8 10*3/uL (1.4-4.0); Lymphocytes % 13.8 % (21.2-54.2); Mean Corpuscular HGB Conc 32.5 GM/DL (32-36); Mean Corpuscular Volume 87.4 FL (87-102); Mean Platelet Volume 11.2 FL (9.6-12.0); Monocytes % 10.1 % (1.7-12.7); Neutrophils % 74.1 % (38.7-73.9); Platelet Count 77 T/CUMM (130-400); Red Blood Count 3.34 MC/CUMM (3.8-5.5); Red Cell Distribution Width 14.1 % (9.3-17.3)
[2020-06-27] MEDS: SODIUM CHLORIDE 0.45% 1,000 ML IV SCH ×3 (05:02→22:21)
[2020-06-27 05:07] LABS: Calcium 7.5 MG/DL (8.5-10.1); Osmolality,Calculated 320.3 MOS/KG (273-304); Potassium 4.2 MMOL/L (3.5-5.1)
[2020-06-27 07:10] LABS: Giant Platelets Few; Hypochromasia 3+; Microcytosis 2+; Target Cells Slight
[2020-06-27 07:12] LABS: Platelet Estimate Decreased
[2020-06-27] MEDS: CALCIUM CARBONATE CHEW 500 MG TABLET PO SCH ×2 (08:32→21:02)
[2020-06-27] MEDS: POTASSIUM CHLORIDE 20 MEQ/15 ML UDCUP PER TUBE SCH ×2 (08:32→21:01)
[2020-06-27] MEDS: ASPIRIN CHEW 81 MG TABLET PO SCH (08:32)
[2020-06-27] MEDS: LACTULOSE 20 GM/30 ML UDCUP PER TUBE SCH ×2 (08:33→21:01)
[2020-06-27] MEDS: PIPERACILLIN/TAZOBACTAM 3,375 MG in SODIUM CHLORIDE 0.9% 100 ML IV SCH ×2 (08:33→21:02)
[2020-06-27] MEDS: METOPROLOL TARTRATE 25 MG TABLET PO SCH ×2 (08:33→21:02)
[2020-06-27] MEDS: DESITIN 4OZ/NYSTATIN 15 GRAM MIXTURE PASTE TOP SCH ×2 (08:34→21:02)
[2020-06-27] MEDS: PANTOPRAZOLE 40 MG VIAL IV SCH ×2 (08:34→21:03)
[2020-06-27] MEDS: DEXMEDETOMIDINE 200 MCG in SODIUM CHLORIDE 0.9% 48 ML IV PRN ×2 (10:13→17:50)
[2020-06-27] MEDS: CLOPIDOGREL 75 MG TABLET PO SCH (14:35)
[2020-06-27] MEDS: INSULIN GLARGINE 100 UNIT/ML SUBCUT SCH (21:01)
[2020-06-27] MEDS: ATORVASTATIN 40 MG TABLET PO SCH (21:02)
[2020-06-28] MEDS: DEXMEDETOMIDINE 200 MCG in SODIUM CHLORIDE 0.9% 48 ML IV PRN ×2 (00:02→05:35)
[2020-06-28] MEDS: SODIUM CHLORIDE 0.45% 1,000 ML IV SCH ×4 (00:31→17:40)
[2020-06-28] MEDS: INSULIN LISPRO 100 UNIT/ML SUBCUT SCH ×6 (00:43→20:37)
[2020-06-28 04:30] LABS: ABG Base Excess 1.7 MMOL/L (-2.5-2.5); ABG HCO3 25.8 MMOL/L (20-26); ABG Oxygen Saturation 93.1 % (95-100); ABG PH 7.449 (7.35-7.45); ABG TCO2 26.9 MMOL/L (23-27); Allen Test Positive; Pt O2 Delivery Device Ventilator
[2020-06-28 05:05] LABS: Eosinophils # 0.1 10*3/uL (0.0-0.87); Eosinophils % 2.5 % (0.00-10.9); Hematocrit 27.4 VOL% (42.0-52.0); Hemoglobin 8.7 GM/DL (14.0-18.0); Immature Granulocytes % 0.9 %; Immature Granulocytes Absolute 0.04 #; Lymphocytes # 0.7 10*3/uL (1.4-4.0); Lymphocytes % 16.7 % (21.2-54.2); Mean Corpuscular HGB Conc 31.8 GM/DL (32-36); Mean Corpuscular Volume 89.8 FL (87-102); Monocytes % 15.1 % (1.7-12.7); Neutrophils % 64.8 % (38.7-73.9); Platelet Count 90 T/CUMM (130-400); Red Blood Count 3.05 MC/CUMM (3.8-5.5); Red Cell Distribution Width 13.8 % (9.3-17.3); White Blood Count 4.4 T/CUMM (4-12)
[2020-06-28 05:32] LABS: Risk Ratio 3.48
[2020-06-28 05:33] LABS: Albumin 1.7 G/DL (3.4-5.0); Bilirubin,Total 0.6 MG/DL (0.2-1.0); Calcium 7.7 MG/DL (8.5-10.1); Osmolality,Calculated 309.6 MOS/KG (273-304); Potassium 4.4 MMOL/L (3.5-5.1); Total Protein 5.5 G/DL (6.4-8.3)
[2020-06-28 07:35] LABS: Eosinophils 3 % (0-10); Lymphocytes 27 % (20-55); Segmented Neutrophils 68 % (50-85); Total Cells Counted 100
[2020-06-28 07:45] LABS: Platelet Estimate Decreased; Polychromasia Few; Spherocytes Few
[2020-06-28] MEDS: PANTOPRAZOLE 40 MG VIAL IV SCH ×2 (08:00→20:38)
[2020-06-28] MEDS: LACTULOSE 20 GM/30 ML UDCUP PER TUBE SCH ×2 (08:01→20:37)
[2020-06-28] MEDS: POTASSIUM CHLORIDE 20 MEQ/15 ML UDCUP PER TUBE SCH ×2 (08:01→20:37)
[2020-06-28] MEDS: CALCIUM CARBONATE CHEW 500 MG TABLET PO SCH ×2 (08:01→20:36)
[2020-06-28] MEDS: MORPHINE 4 MG/1 ML VIAL IV PRN (08:01)
[2020-06-28] MEDS: METOPROLOL TARTRATE 25 MG TABLET PO SCH ×2 (08:02→20:37)
[2020-06-28] MEDS: ASPIRIN CHEW 81 MG TABLET PO SCH (08:02)
[2020-06-28] MEDS: PIPERACILLIN/TAZOBACTAM 3,375 MG in SODIUM CHLORIDE 0.9% 100 ML IV SCH ×2 (08:02→20:38)
[2020-06-28] MEDS: CLOPIDOGREL 75 MG TABLET PO SCH (08:02)
[2020-06-28] MEDS: DESITIN 4OZ/NYSTATIN 15 GRAM MIXTURE PASTE TOP SCH ×2 (08:21→20:38)
[2020-06-28] MEDS: DEXMEDETOMIDINE 400 MCG in SODIUM CHLORIDE 0.9% 96 ML IV PRN ×2 (09:42→16:55)
[2020-06-28] MEDS: INSULIN GLARGINE 100 UNIT/ML SUBCUT SCH (20:37)
[2020-06-28] MEDS: ATORVASTATIN 40 MG TABLET PO SCH (20:37)
[2020-06-29] MEDS: INSULIN LISPRO 100 UNIT/ML SUBCUT SCH ×6 (00:30→20:21)
[2020-06-29] MEDS: SODIUM CHLORIDE 0.45% 1,000 ML IV SCH ×4 (01:27→17:45)
[2020-06-29] MEDS: DEXMEDETOMIDINE 400 MCG in SODIUM CHLORIDE 0.9% 96 ML IV PRN ×3 (01:28→19:30)
[2020-06-29 04:11] LABS: ABG Base Excess 0.3 MMOL/L (-2.5-2.5); ABG HCO3 24.5 MMOL/L (20-26); ABG Oxygen Saturation 97.9 % (95-100); ABG PH 7.427 (7.35-7.45); ABG PO2 122.6 MM HG (80-95); ABG TCO2 25.7 MMOL/L (23-27); Allen Test Positive; Pt O2 Delivery Device Ventilator
[2020-06-29 04:46] LABS: Basophils % 0.2 % (0.0-0.8); Eosinophils # 0.2 10*3/uL (0.0-0.87); Eosinophils % 3.2 % (0.00-10.9); Hematocrit 26.8 VOL% (42.0-52.0); Hemoglobin 8.8 GM/DL (14.0-18.0); Immature Granulocytes % 1.2 %; Immature Granulocytes Absolute 0.06 #; Lymphocytes # 0.8 10*3/uL (1.4-4.0); Lymphocytes % 16.7 % (21.2-54.2); Mean Corpuscular HGB Conc 32.8 GM/DL (32-36); Mean Corpuscular Volume 87.6 FL (87-102); Mean Platelet Volume 11.7 FL (9.6-12.0); Monocytes % 16.3 % (1.7-12.7); Neutrophils % 62.4 % (38.7-73.9); Platelet Count 99 T/CUMM (130-400); Red Blood Count 3.06 MC/CUMM (3.8-5.5); Red Cell Distribution Width 13.3 % (9.3-17.3)
[2020-06-29 05:02] LABS: Albumin 1.7 G/DL (3.4-5.0); Bilirubin,Total 0.4 MG/DL (0.2-1.0); Calcium 7.4 MG/DL (8.5-10.1); Osmolality,Calculated 303.7 MOS/KG (273-304); Potassium 4.1 MMOL/L (3.5-5.1); Total Protein 5.5 G/DL (6.4-8.3)
[2020-06-29 07:05] LABS: Eosinophils 2 % (0-10); Lymphocytes 14 % (20-55); Segmented Neutrophils 71 % (50-85); Total Cells Counted 100
[2020-06-29 07:07] LABS: Microcytosis 1+; Platelet Estimate Decreased
[2020-06-29 07:08] LABS: Stomatocytes Few; Target Cells Slight
[2020-06-29] MEDS: DESITIN 4OZ/NYSTATIN 15 GRAM MIXTURE PASTE TOP SCH ×2 (08:25→21:28)
[2020-06-29] MEDS: ASPIRIN CHEW 81 MG TABLET PO SCH (08:58)
[2020-06-29] MEDS: METOPROLOL TARTRATE 25 MG TABLET PO SCH ×2 (08:58→21:26)
[2020-06-29] MEDS: LACTULOSE 20 GM/30 ML UDCUP PER TUBE SCH ×2 (08:58→21:26)
[2020-06-29] MEDS: CALCIUM CARBONATE CHEW 500 MG TABLET PO SCH ×2 (08:58→21:26)
[2020-06-29] MEDS: PANTOPRAZOLE 40 MG VIAL IV SCH ×2 (08:58→21:27)
[2020-06-29] MEDS: CLOPIDOGREL 75 MG TABLET PO SCH (08:58)
[2020-06-29] MEDS: PIPERACILLIN/TAZOBACTAM 3,375 MG in SODIUM CHLORIDE 0.9% 100 ML IV SCH ×2 (08:58→21:27)
[2020-06-29 15:39] LABS: ABG HCO3 24.4 MMOL/L (20-26); ABG Oxygen Saturation 97.1 % (95-100); ABG PCO2 35.9 MM HG (35-48); ABG PH 7.432 (7.35-7.45); ABG PO2 91.8 MM HG (80-95); ABG TCO2 21.2 MMOL/L (23-27)
[2020-06-29] MEDS: hydrALAZINE 20 MG/1 ML VIAL IV PRN (17:33)
[2020-06-29] MEDS: ATORVASTATIN 40 MG TABLET PO SCH (21:26)
[2020-06-29] MEDS: INSULIN GLARGINE 100 UNIT/ML SUBCUT SCH (21:27)
[2020-06-30] MEDS: INSULIN LISPRO 100 UNIT/ML SUBCUT SCH ×6 (00:52→20:19)
[2020-06-30] MEDS: SODIUM CHLORIDE 0.45% 1,000 ML IV SCH ×4 (02:24→22:30)
[2020-06-30] MEDS: DEXMEDETOMIDINE 400 MCG in SODIUM CHLORIDE 0.9% 96 ML IV PRN (03:23)
[2020-06-30 04:25] LABS: Basophils % 0.2 % (0.0-0.8); Eosinophils # 0.1 10*3/uL (0.0-0.87); Eosinophils % 1.3 % (0.00-10.9); Hematocrit 25.9 VOL% (42.0-52.0); Hemoglobin 8.4 GM/DL (14.0-18.0); Immature Granulocytes % 1.6 %; Lymphocytes # 0.9 10*3/uL (1.4-4.0); Lymphocytes % 13.7 % (21.2-54.2); Mean Corpuscular HGB Conc 32.4 GM/DL (32-36); Mean Corpuscular Volume 86.9 FL (87-102); Monocytes % 14.7 % (1.7-12.7); Neutrophils % 68.5 % (38.7-73.9); Platelet Count 156 T/CUMM (130-400); Red Blood Count 2.98 MC/CUMM (3.8-5.5); Red Cell Distribution Width 13.3 % (9.3-17.3); White Blood Count 6.3 T/CUMM (4-12)
[2020-06-30 04:26] LABS: ABG Base Excess 1.1 MMOL/L (-2.5-2.5); ABG HCO3 24.3 MMOL/L (20-26); ABG Oxygen Saturation 94.5 % (95-100); ABG PCO2 33.2 MM HG (35-48); ABG PH 7.483 (7.35-7.45); ABG PO2 73.7 MM HG (80-95); ABG TCO2 25.4 MMOL/L (23-27); Allen Test Positive
[2020-06-30 04:50] LABS: Eosinophils 4 % (0-10); Hypochromasia 1+; Lymphocytes 11 % (20-55); Microcytosis 1+; Platelet Estimate Adequate; Segmented Neutrophils 73 % (50-85); Total Cells Counted 100
[2020-06-30 04:53] LABS: Albumin 1.8 G/DL (3.4-5.0); Bilirubin,Total 1.2 MG/DL (0.2-1.0); Calcium 7.9 MG/DL (8.5-10.1); Osmolality,Calculated 294.7 MOS/KG (273-304); Total Protein 5.6 G/DL (6.4-8.3)
[2020-06-30] MEDS ORDERED: MAGNESIUM SULF RIDER 2 GM in PREMIX 1 EACH IV ONE (07:24)
[2020-06-30] MEDS: PANTOPRAZOLE 40 MG VIAL IV SCH ×2 (08:32→21:57)
[2020-06-30] MEDS: METOPROLOL TARTRATE 25 MG TABLET PO SCH ×3 (08:33→22:10)
[2020-06-30] MEDS: CALCIUM CARBONATE CHEW 500 MG TABLET PO SCH ×2 (08:33→21:52)
[2020-06-30] MEDS: ASPIRIN CHEW 81 MG TABLET PO SCH (08:33)
[2020-06-30] MEDS: CLOPIDOGREL 75 MG TABLET PO SCH (08:33)
[2020-06-30] MEDS: LACTULOSE 20 GM/30 ML UDCUP PER TUBE SCH (08:35)
[2020-06-30] MEDS: DESITIN 4OZ/NYSTATIN 15 GRAM MIXTURE PASTE TOP SCH ×2 (09:09→21:57)
[2020-06-30] MEDS: PIPERACILLIN/TAZOBACTAM 3,375 MG in SODIUM CHLORIDE 0.9% 100 ML IV SCH ×2 (10:54→21:57)
[2020-06-30] MEDS: INSULIN GLARGINE 100 UNIT/ML SUBCUT SCH (21:53)
[2020-06-30] MEDS: ATORVASTATIN 40 MG TABLET PO SCH (21:54)
[2020-07-01] MEDS: INSULIN LISPRO 100 UNIT/ML SUBCUT SCH ×7 (00:20→23:46)
[2020-07-01] MEDS: SODIUM CHLORIDE 0.45% 1,000 ML IV SCH ×2 (04:11→21:24)
[2020-07-01 04:57] LABS: Bilirubin,Total 1.6 MG/DL (0.2-1.0); Calcium 7.4 MG/DL (8.5-10.1); Osmolality,Calculated 293.7 MOS/KG (273-304); Potassium 3.3 MMOL/L (3.5-5.1); Total Protein 6.1 G/DL (6.4-8.3)
[2020-07-01] MEDS: hydrALAZINE 20 MG/1 ML VIAL IV PRN (05:15)
[2020-07-01] MEDS: PANTOPRAZOLE 40 MG VIAL IV SCH ×2 (08:24→21:34)
[2020-07-01] MEDS: DESITIN 4OZ/NYSTATIN 15 GRAM MIXTURE PASTE TOP SCH ×2 (08:24→22:00)
[2020-07-01] MEDS: LACTULOSE 20 GM/30 ML UDCUP PO SCH (08:24)
[2020-07-01] MEDS: METOPROLOL TARTRATE 25 MG TABLET PO SCH ×2 (08:24→21:28)
[2020-07-01] MEDS: ASPIRIN CHEW 81 MG TABLET PO SCH (08:25)
[2020-07-01] MEDS: CALCIUM CARBONATE CHEW 500 MG TABLET PO SCH ×2 (08:25→21:28)
[2020-07-01] MEDS: CLOPIDOGREL 75 MG TABLET PO SCH (08:25)
[2020-07-01] MEDS: PIPERACILLIN/TAZOBACTAM 3,375 MG in SODIUM CHLORIDE 0.9% 100 ML IV SCH ×2 (09:56→22:23)
[2020-07-01] MEDS: MEMANTINE 5 MG TABLET PO SCH (11:05)
[2020-07-01] MEDS: DULoxetine 30 MG CAPSULE PO SCH (11:05)
[2020-07-01] MEDS: ACETAMINOPHEN 325 MG TABLET PO PRN (16:41)
[2020-07-01] MEDS: POTASSIUM CHLORIDE RIDER 10 MEQ in PREMIX 1 EACH IV PRN ×4 (16:42→23:46)
[2020-07-01] MEDS: POTASSIUM CHLORIDE 20 MEQ TABLET PO SCH (21:27)
[2020-07-01] MEDS: ATORVASTATIN 40 MG TABLET PO SCH (21:30)
[2020-07-01] MEDS: INSULIN GLARGINE 100 UNIT/ML SUBCUT SCH (21:59)
[2020-07-02] MEDS: INSULIN LISPRO 100 UNIT/ML SUBCUT SCH ×5 (03:52→21:21)
[2020-07-02 05:23] LABS: Basophils % 0.2 % (0.0-0.8); Eosinophils # 0.1 10*3/uL (0.0-0.87); Eosinophils % 0.6 % (0.00-10.9); Hematocrit 25.2 VOL% (42.0-52.0); Hemoglobin 8.3 GM/DL (14.0-18.0); Immature Granulocytes % 1.1 %; Immature Granulocytes Absolute 0.13 #; Lymphocytes # 1.2 10*3/uL (1.4-4.0); Lymphocytes % 9.8 % (21.2-54.2); Mean Corpuscular HGB Conc 32.9 GM/DL (32-36); Mean Corpuscular Volume 85.7 FL (87-102); Mean Platelet Volume 9.9 FL (9.6-12.0); Monocytes % 10.2 % (1.7-12.7); Neutrophils % 78.1 % (38.7-73.9); Platelet Count 375 T/CUMM (130-400); Red Blood Count 2.94 MC/CUMM (3.8-5.5); Red Cell Distribution Width 13.2 % (9.3-17.3); White Blood Count 12.1 T/CUMM (4-12)
[2020-07-02 05:42] LABS: Calcium 7.8 MG/DL (8.5-10.1); Osmolality,Calculated 287.8 MOS/KG (273-304); Potassium 3.3 MMOL/L (3.5-5.1)
[2020-07-02] MEDS: POTASSIUM CHLORIDE 20 MEQ TABLET PO SCH ×2 (09:41→21:21)
[2020-07-02] MEDS: CLOPIDOGREL 75 MG TABLET PO SCH (09:41)
[2020-07-02] MEDS: ASPIRIN CHEW 81 MG TABLET PO SCH (09:41)
[2020-07-02] MEDS: CALCIUM CARBONATE CHEW 500 MG TABLET PO SCH ×2 (09:41→21:21)
[2020-07-02] MEDS: DULoxetine 30 MG CAPSULE PO SCH (09:41)
[2020-07-02] MEDS: METOPROLOL TARTRATE 25 MG TABLET PO SCH ×3 (09:42→21:21)
[2020-07-02] MEDS: MEMANTINE 5 MG TABLET PO SCH (09:42)
[2020-07-02] MEDS: LACTULOSE 20 GM/30 ML UDCUP PO SCH (09:42)
[2020-07-02] MEDS: PIPERACILLIN/TAZOBACTAM 3,375 MG in SODIUM CHLORIDE 0.9% 100 ML IV SCH ×2 (09:42→21:22)
[2020-07-02] MEDS: PANTOPRAZOLE 40 MG VIAL IV SCH ×3 (09:43→21:25)
[2020-07-02] MEDS: DESITIN 4OZ/NYSTATIN 15 GRAM MIXTURE PASTE TOP SCH ×2 (09:43→21:26)
[2020-07-02] MEDS: SODIUM CHLORIDE 0.45% 1,000 ML IV SCH (18:05)
[2020-07-02] MEDS: INSULIN GLARGINE 100 UNIT/ML SUBCUT SCH (21:21)
[2020-07-02] MEDS: ATORVASTATIN 40 MG TABLET PO SCH (21:21)
[2020-07-03] MEDS: INSULIN LISPRO 100 UNIT/ML SUBCUT SCH ×6 (01:30→21:48)
[2020-07-03 05:46] LABS: Basophils % 0.1 % (0.0-0.8); Eosinophils # 0.2 10*3/uL (0.0-0.87); Eosinophils % 1.4 % (0.00-10.9); Hematocrit 24.9 VOL% (42.0-52.0); Hemoglobin 8.1 GM/DL (14.0-18.0); Immature Granulocytes % 0.9 %; Immature Granulocytes Absolute 0.09 #; Lymphocytes # 1.3 10*3/uL (1.4-4.0); Lymphocytes % 12.6 % (21.2-54.2); Mean Corpuscular HGB Conc 32.5 GM/DL (32-36); Mean Platelet Volume 9.8 FL (9.6-12.0); Platelet Count 410 T/CUMM (130-400); Red Blood Count 2.93 MC/CUMM (3.8-5.5); Red Cell Distribution Width 13.2 % (9.3-17.3); White Blood Count 10.4 T/CUMM (4-12)
[2020-07-03 06:12] LABS: Bilirubin,Total 1.2 MG/DL (0.2-1.0); Calcium 8.3 MG/DL (8.5-10.1); Osmolality,Calculated 285.1 MOS/KG (273-304); Potassium 3.6 MMOL/L (3.5-5.1); Total Protein 6.1 G/DL (6.4-8.3)
[2020-07-03] MEDS: SODIUM CHLORIDE 0.45% 1,000 ML IV SCH ×2 (07:00→17:22)
[2020-07-03] MEDS: CALCIUM CARBONATE CHEW 500 MG TABLET PO SCH ×2 (09:39→21:49)
[2020-07-03] MEDS: POTASSIUM CHLORIDE 20 MEQ TABLET PO SCH ×2 (09:39→21:49)
[2020-07-03] MEDS: ERGOCALCIFEROL 50,000 UNIT CAPSULE PO SCH (09:39)
[2020-07-03] MEDS: ASPIRIN CHEW 81 MG TABLET PO SCH (09:39)
[2020-07-03] MEDS: METOPROLOL TARTRATE 25 MG TABLET PO SCH ×2 (09:39→21:49)
[2020-07-03] MEDS: CLOPIDOGREL 75 MG TABLET PO SCH (09:39)
[2020-07-03] MEDS: DULoxetine 30 MG CAPSULE PO SCH (09:39)
[2020-07-03] MEDS: MEMANTINE 5 MG TABLET PO SCH (09:39)
[2020-07-03] MEDS: PANTOPRAZOLE 40 MG VIAL IV SCH ×2 (09:40→21:49)
[2020-07-03] MEDS: DESITIN 4OZ/NYSTATIN 15 GRAM MIXTURE PASTE TOP SCH ×2 (09:40→20:30)
[2020-07-03] MEDS: PIPERACILLIN/TAZOBACTAM 3,375 MG in SODIUM CHLORIDE 0.9% 100 ML IV SCH (09:41)
[2020-07-03] MEDS: LACTULOSE 20 GM/30 ML UDCUP PO SCH (15:58)
[2020-07-03] MEDS: INSULIN GLARGINE 100 UNIT/ML SUBCUT SCH (21:48)
[2020-07-03] MEDS: ATORVASTATIN 40 MG TABLET PO SCH (21:49)
[2020-07-04] MEDS: INSULIN LISPRO 100 UNIT/ML SUBCUT SCH ×6 (04:40→20:49)
[2020-07-04 06:39] LABS: Basophils % 0.1 % (0.0-0.8); Eosinophils # 0.1 10*3/uL (0.0-0.87); Eosinophils % 1.1 % (0.00-10.9); Hematocrit 25.7 VOL% (42.0-52.0); Hemoglobin 8.6 GM/DL (14.0-18.0); Lymphocytes # 1.4 10*3/uL (1.4-4.0); Lymphocytes % 14.5 % (21.2-54.2); Mean Corpuscular HGB Conc 33.5 GM/DL (32-36); Mean Corpuscular Volume 85.1 FL (87-102); Mean Platelet Volume 9.5 FL (9.6-12.0); Monocytes % 11.1 % (1.7-12.7); Neutrophils % 72.2 % (38.7-73.9); Platelet Count 436 T/CUMM (130-400); Red Blood Count 3.02 MC/CUMM (3.8-5.5); Red Cell Distribution Width 13.4 % (9.3-17.3); White Blood Count 9.7 T/CUMM (4-12)
[2020-07-04 07:01] LABS: Albumin 2.2 G/DL (3.4-5.0); Bilirubin,Total 0.6 MG/DL (0.2-1.0); Osmolality,Calculated 282.1 MOS/KG (273-304); Potassium 3.5 MMOL/L (3.5-5.1); Total Protein 6.4 G/DL (6.4-8.3)
[2020-07-04] MEDS: ASPIRIN CHEW 81 MG TABLET PO SCH (09:07)
[2020-07-04] MEDS: CALCIUM CARBONATE CHEW 500 MG TABLET PO SCH ×2 (09:07→20:47)
[2020-07-04] MEDS: MEMANTINE 5 MG TABLET PO SCH (09:07)
[2020-07-04] MEDS: METOPROLOL TARTRATE 25 MG TABLET PO SCH ×2 (09:08→20:48)
[2020-07-04] MEDS: POTASSIUM CHLORIDE 20 MEQ TABLET PO SCH ×2 (09:08→20:48)
[2020-07-04] MEDS: DULoxetine 30 MG CAPSULE PO SCH (09:08)
[2020-07-04] MEDS: CLOPIDOGREL 75 MG TABLET PO SCH (09:09)
[2020-07-04] MEDS: LACTULOSE 20 GM/30 ML UDCUP PO SCH (09:44)
[2020-07-04] MEDS: DESITIN 4OZ/NYSTATIN 15 GRAM MIXTURE PASTE TOP SCH ×2 (09:44→20:49)
[2020-07-04] MEDS: PANTOPRAZOLE 40 MG VIAL IV SCH ×2 (10:19→20:47)
[2020-07-04] MEDS ORDERED: TUBERCULIN SKIN TEST 0.1 ML SYRINGE INTRADERM ONE (17:00)
[2020-07-04] MEDS: ATORVASTATIN 40 MG TABLET PO SCH (20:48)
[2020-07-04] MEDS: INSULIN GLARGINE 100 UNIT/ML SUBCUT SCH (20:49)
[2020-07-05] MEDS: INSULIN LISPRO 100 UNIT/ML SUBCUT SCH ×6 (00:03→20:48)
[2020-07-05 07:01] LABS: Basophils % 0.2 % (0.0-0.8); Eosinophils # 0.1 10*3/uL (0.0-0.87); Eosinophils % 1.1 % (0.00-10.9); Hematocrit 25.7 VOL% (42.0-52.0); Hemoglobin 8.3 GM/DL (14.0-18.0); Immature Granulocytes % 1.1 %; Lymphocytes # 1.4 10*3/uL (1.4-4.0); Lymphocytes % 16.3 % (21.2-54.2); Mean Corpuscular HGB Conc 32.3 GM/DL (32-36); Mean Corpuscular Volume 86.5 FL (87-102); Mean Platelet Volume 9.6 FL (9.6-12.0); Monocytes % 11.3 % (1.7-12.7); Platelet Count 486 T/CUMM (130-400); Red Blood Count 2.97 MC/CUMM (3.8-5.5); Red Cell Distribution Width 13.4 % (9.3-17.3); White Blood Count 8.8 T/CUMM (4-12)
[2020-07-05 07:19] LABS: Calcium 8.1 MG/DL (8.5-10.1); Osmolality,Calculated 285.3 MOS/KG (273-304); Potassium 4.1 MMOL/L (3.5-5.1)
[2020-07-05] MEDS: ASPIRIN CHEW 81 MG TABLET PO SCH (08:28)
[2020-07-05] MEDS: CLOPIDOGREL 75 MG TABLET PO SCH (08:28)
[2020-07-05] MEDS: MEMANTINE 5 MG TABLET PO SCH (08:28)
[2020-07-05] MEDS: METOPROLOL TARTRATE 25 MG TABLET PO SCH ×2 (08:28→20:48)
[2020-07-05] MEDS: DULoxetine 30 MG CAPSULE PO SCH (08:28)
[2020-07-05] MEDS: POTASSIUM CHLORIDE 20 MEQ TABLET PO SCH ×2 (08:28→20:48)
[2020-07-05] MEDS: CALCIUM CARBONATE CHEW 500 MG TABLET PO SCH ×2 (08:29→20:48)
[2020-07-05] MEDS: PANTOPRAZOLE 40 MG VIAL IV SCH ×2 (08:30→20:47)
[2020-07-05] MEDS: SODIUM CHLORIDE 0.45% 1,000 ML IV SCH (09:29)
[2020-07-05] MEDS: LACTULOSE 20 GM/30 ML UDCUP PO SCH (09:29)
[2020-07-05] MEDS: DESITIN 4OZ/NYSTATIN 15 GRAM MIXTURE PASTE TOP SCH ×2 (09:31→20:48)
[2020-07-05] MEDS ORDERED: FUROSEMIDE 20 MG/2 ML VIAL IV ONE (11:30)
[2020-07-05] MEDS: hydrALAZINE 20 MG/1 ML VIAL IV PRN (12:07)
[2020-07-05] MEDS: INSULIN GLARGINE 100 UNIT/ML SUBCUT SCH (20:48)
[2020-07-05] MEDS: ATORVASTATIN 40 MG TABLET PO SCH (20:48)
[2020-07-06] MEDS: INSULIN LISPRO 100 UNIT/ML SUBCUT SCH ×7 (00:11→23:57)
[2020-07-06 06:45] LABS: Basophils % 0.5 % (0.0-0.8); Eosinophils # 0.1 10*3/uL (0.0-0.87); Eosinophils % 0.8 % (0.00-10.9); Hematocrit 27.4 VOL% (42.0-52.0); Hemoglobin 8.6 GM/DL (14.0-18.0); Immature Granulocytes Absolute 0.08 #; Lymphocytes # 1.3 10*3/uL (1.4-4.0); Lymphocytes % 14.9 % (21.2-54.2); Mean Corpuscular HGB Conc 31.4 GM/DL (32-36); Mean Corpuscular Volume 88.1 FL (87-102); Mean Platelet Volume 9.7 FL (9.6-12.0); Monocytes % 10.3 % (1.7-12.7); Neutrophils % 72.5 % (38.7-73.9); Platelet Count 591 T/CUMM (130-400); Red Blood Count 3.11 MC/CUMM (3.8-5.5); Red Cell Distribution Width 13.5 % (9.3-17.3); White Blood Count 8.4 T/CUMM (4-12)
[2020-07-06 07:12] LABS: Calcium 8.5 MG/DL (8.5-10.1); Osmolality,Calculated 284.4 MOS/KG (273-304); Potassium 3.9 MMOL/L (3.5-5.1)
[2020-07-06] MEDS: ASPIRIN CHEW 81 MG TABLET PO SCH (08:47)
[2020-07-06] MEDS: DULoxetine 30 MG CAPSULE PO SCH (08:47)
[2020-07-06] MEDS: POTASSIUM CHLORIDE 20 MEQ TABLET PO SCH ×2 (08:48→20:20)
[2020-07-06] MEDS: MEMANTINE 5 MG TABLET PO SCH (08:48)
[2020-07-06] MEDS: CLOPIDOGREL 75 MG TABLET PO SCH (08:48)
[2020-07-06] MEDS: PANTOPRAZOLE 40 MG VIAL IV SCH ×2 (08:48→20:19)
[2020-07-06] MEDS: METOPROLOL TARTRATE 25 MG TABLET PO SCH ×2 (08:49→20:20)
[2020-07-06] MEDS: CALCIUM CARBONATE CHEW 500 MG TABLET PO SCH ×2 (08:51→20:20)
[2020-07-06] MEDS: DESITIN 4OZ/NYSTATIN 15 GRAM MIXTURE PASTE TOP SCH ×2 (08:51→20:20)
[2020-07-06] MEDS: INSULIN GLARGINE 100 UNIT/ML SUBCUT SCH (20:20)
[2020-07-06] MEDS: ATORVASTATIN 40 MG TABLET PO SCH (20:20)
[2020-07-07] MEDS: INSULIN LISPRO 100 UNIT/ML SUBCUT SCH ×6 (03:33→23:49)
[2020-07-07 06:24] LABS: Basophils % 0.6 % (0.0-0.8); Eosinophils # 0.1 10*3/uL (0.0-0.87); Eosinophils % 1.2 % (0.00-10.9); Hematocrit 27.4 VOL% (42.0-52.0); Hemoglobin 8.9 GM/DL (14.0-18.0); Immature Granulocytes % 0.6 %; Immature Granulocytes Absolute 0.04 #; Lymphocytes # 1.3 10*3/uL (1.4-4.0); Lymphocytes % 19.3 % (21.2-54.2); Mean Corpuscular HGB Conc 32.5 GM/DL (32-36); Mean Corpuscular Volume 86.2 FL (87-102); Mean Platelet Volume 9.5 FL (9.6-12.0); Monocytes % 12.9 % (1.7-12.7); Neutrophils % 65.4 % (38.7-73.9); Platelet Count 619 T/CUMM (130-400); Red Blood Count 3.18 MC/CUMM (3.8-5.5); Red Cell Distribution Width 13.4 % (9.3-17.3); White Blood Count 6.8 T/CUMM (4-12)
[2020-07-07 06:32] LABS: Calcium 8.9 MG/DL (8.5-10.1); Osmolality,Calculated 280.4 MOS/KG (273-304); Potassium 4.1 MMOL/L (3.5-5.1)
[2020-07-07] MEDS: DULoxetine 30 MG CAPSULE PO SCH (09:12)
[2020-07-07] MEDS: POTASSIUM CHLORIDE 20 MEQ TABLET PO SCH ×2 (09:12→20:41)
[2020-07-07] MEDS: ASPIRIN CHEW 81 MG TABLET PO SCH (09:12)
[2020-07-07] MEDS: CALCIUM CARBONATE CHEW 500 MG TABLET PO SCH ×2 (09:12→20:40)
[2020-07-07] MEDS: METOPROLOL TARTRATE 25 MG TABLET PO SCH ×2 (09:13→20:42)
[2020-07-07] MEDS: CLOPIDOGREL 75 MG TABLET PO SCH (09:13)
[2020-07-07] MEDS: MEMANTINE 5 MG TABLET PO SCH (09:13)
[2020-07-07] MEDS: PANTOPRAZOLE 40 MG VIAL IV SCH ×2 (09:13→20:39)
[2020-07-07] MEDS: DESITIN 4OZ/NYSTATIN 15 GRAM MIXTURE PASTE TOP SCH ×2 (09:14→20:38)
[2020-07-07] MEDS: ATORVASTATIN 40 MG TABLET PO SCH (20:40)
[2020-07-07] MEDS: INSULIN GLARGINE 100 UNIT/ML SUBCUT SCH (20:40)
[2020-07-08] MEDS: INSULIN LISPRO 100 UNIT/ML SUBCUT SCH ×5 (03:43→20:35)
[2020-07-08] MEDS: CLOPIDOGREL 75 MG TABLET PO SCH (08:39)
[2020-07-08] MEDS: POTASSIUM CHLORIDE 20 MEQ TABLET PO SCH ×2 (08:39→20:32)
[2020-07-08] MEDS: ASPIRIN CHEW 81 MG TABLET PO SCH (08:40)
[2020-07-08] MEDS: CALCIUM CARBONATE CHEW 500 MG TABLET PO SCH ×2 (08:40→20:32)
[2020-07-08] MEDS: MEMANTINE 5 MG TABLET PO SCH (08:40)
[2020-07-08] MEDS: DULoxetine 30 MG CAPSULE PO SCH (08:40)
[2020-07-08] MEDS: METOPROLOL TARTRATE 25 MG TABLET PO SCH ×2 (08:41→20:31)
[2020-07-08] MEDS: PANTOPRAZOLE 40 MG VIAL IV SCH ×2 (08:43→20:32)
[2020-07-08] MEDS: DESITIN 4OZ/NYSTATIN 15 GRAM MIXTURE PASTE TOP SCH ×2 (08:44→20:32)
[2020-07-08 11:57] LABS: Basophils % 0.5 % (0.0-0.8); Eosinophils # 0.1 10*3/uL (0.0-0.87); Eosinophils % 0.9 % (0.00-10.9); Hematocrit 28.3 VOL% (42.0-52.0); Immature Granulocytes % 0.7 %; Immature Granulocytes Absolute 0.05 #; Lymphocytes # 1.4 10*3/uL (1.4-4.0); Mean Corpuscular HGB Conc 31.8 GM/DL (32-36); Mean Corpuscular Volume 86.5 FL (87-102); Mean Platelet Volume 9.3 FL (9.6-12.0); Monocytes % 12.9 % (1.7-12.7); Platelet Count 645 T/CUMM (130-400); Red Blood Count 3.27 MC/CUMM (3.8-5.5); Red Cell Distribution Width 13.8 % (9.3-17.3); White Blood Count 7.6 T/CUMM (4-12)
[2020-07-08] MEDS: ATORVASTATIN 40 MG TABLET PO SCH (20:32)
[2020-07-08] MEDS: INSULIN GLARGINE 100 UNIT/ML SUBCUT SCH (20:33)
[2020-07-09] MEDS: INSULIN LISPRO 100 UNIT/ML SUBCUT SCH ×5 (02:02→21:55)
[2020-07-09 05:06] LABS: Basophils % 0.4 % (0.0-0.8); Eosinophils # 0.1 10*3/uL (0.0-0.87); Hematocrit 26.1 VOL% (42.0-52.0); Hemoglobin 8.4 GM/DL (14.0-18.0); Immature Granulocytes % 0.6 %; Immature Granulocytes Absolute 0.04 #; Lymphocytes # 1.5 10*3/uL (1.4-4.0); Mean Corpuscular HGB Conc 32.2 GM/DL (32-36); Mean Corpuscular Volume 86.7 FL (87-102); Mean Platelet Volume 9.1 FL (9.6-12.0); Monocytes % 15.5 % (1.7-12.7); Neutrophils % 61.5 % (38.7-73.9); Platelet Count 584 T/CUMM (130-400); Red Blood Count 3.01 MC/CUMM (3.8-5.5); Red Cell Distribution Width 13.5 % (9.3-17.3)
[2020-07-09 05:22] LABS: Calcium 8.8 MG/DL (8.5-10.1); Osmolality,Calculated 280.5 MOS/KG (273-304); Potassium 4.4 MMOL/L (3.5-5.1)
[2020-07-09] MEDS: ASPIRIN CHEW 81 MG TABLET PO SCH (11:10)
[2020-07-09] MEDS: POTASSIUM CHLORIDE 20 MEQ TABLET PO SCH ×2 (11:11→21:54)
[2020-07-09] MEDS: MEMANTINE 5 MG TABLET PO SCH (11:11)
[2020-07-09] MEDS: CALCIUM CARBONATE CHEW 500 MG TABLET PO SCH ×2 (11:11→21:54)
[2020-07-09] MEDS: METOPROLOL TARTRATE 25 MG TABLET PO SCH ×2 (11:11→21:55)
[2020-07-09] MEDS: CLOPIDOGREL 75 MG TABLET PO SCH (11:11)
[2020-07-09] MEDS: DULoxetine 30 MG CAPSULE PO SCH (11:11)
[2020-07-09] MEDS: PANTOPRAZOLE 40 MG VIAL IV SCH ×2 (11:15→21:54)
[2020-07-09] MEDS: DESITIN 4OZ/NYSTATIN 15 GRAM MIXTURE PASTE TOP SCH (11:16)
[2020-07-09] MEDS: ATORVASTATIN 40 MG TABLET PO SCH (21:54)
[2020-07-09] MEDS: INSULIN GLARGINE 100 UNIT/ML SUBCUT SCH (21:55)
[2020-07-10] MEDS: DESITIN 4OZ/NYSTATIN 15 GRAM MIXTURE PASTE TOP SCH ×3 (00:13→21:21)
[2020-07-10] MEDS: INSULIN LISPRO 100 UNIT/ML SUBCUT SCH ×4 (09:10→21:21)
[2020-07-10] MEDS: MEMANTINE 5 MG TABLET PO SCH (09:11)
[2020-07-10] MEDS: METOPROLOL TARTRATE 25 MG TABLET PO SCH ×2 (09:11→21:16)
[2020-07-10] MEDS: DULoxetine 30 MG CAPSULE PO SCH (09:11)
[2020-07-10] MEDS: ERGOCALCIFEROL 50,000 UNIT CAPSULE PO SCH (09:11)
[2020-07-10] MEDS: ASPIRIN CHEW 81 MG TABLET PO SCH (09:12)
[2020-07-10] MEDS: POTASSIUM CHLORIDE 20 MEQ TABLET PO SCH ×2 (09:12→21:16)
[2020-07-10] MEDS: CALCIUM CARBONATE CHEW 500 MG TABLET PO SCH ×2 (09:12→21:16)
[2020-07-10] MEDS: CLOPIDOGREL 75 MG TABLET PO SCH (09:12)
[2020-07-10] MEDS: PANTOPRAZOLE 40 MG VIAL IV SCH (09:15)
[2020-07-10] MEDS: PANTOPRAZOLE 40 MG TABLET PO SCH (16:37)
[2020-07-10] MEDS: ATORVASTATIN 40 MG TABLET PO SCH (21:16)
[2020-07-10] MEDS: INSULIN GLARGINE 100 UNIT/ML SUBCUT SCH (21:17)
[2020-07-11] MEDS: INSULIN LISPRO 100 UNIT/ML SUBCUT SCH ×4 (08:54→20:52)
[2020-07-11 08:58] LABS: Basophils % 0.4 % (0.0-0.8); Eosinophils # 0.1 10*3/uL (0.0-0.87); Eosinophils % 0.8 % (0.00-10.9); Hematocrit 32.2 VOL% (42.0-52.0); Hemoglobin 10.6 GM/DL (14.0-18.0); Immature Granulocytes % 0.5 %; Immature Granulocytes Absolute 0.05 #; Lymphocytes % 18.6 % (21.2-54.2); Mean Corpuscular HGB Conc 32.9 GM/DL (32-36); Mean Corpuscular Volume 85.9 FL (87-102); Mean Platelet Volume 9.6 FL (9.6-12.0); Monocytes % 9.3 % (1.7-12.7); Neutrophils % 70.4 % (38.7-73.9); Platelet Count 671 T/CUMM (130-400); Red Blood Count 3.75 MC/CUMM (3.8-5.5); Red Cell Distribution Width 13.8 % (9.3-17.3); White Blood Count 10.5 T/CUMM (4-12)
[2020-07-11 09:18] LABS: Calcium 9.5 MG/DL (8.5-10.1); Osmolality,Calculated 286.8 MOS/KG (273-304); Potassium 5.3 MMOL/L (3.5-5.1)
[2020-07-11] MEDS: CALCIUM CARBONATE CHEW 500 MG TABLET PO SCH ×2 (09:57→20:46)
[2020-07-11] MEDS: CLOPIDOGREL 75 MG TABLET PO SCH (09:57)
[2020-07-11] MEDS: METOPROLOL TARTRATE 25 MG TABLET PO SCH ×2 (09:57→20:47)
[2020-07-11] MEDS: MEMANTINE 5 MG TABLET PO SCH (09:57)
[2020-07-11] MEDS: DULoxetine 30 MG CAPSULE PO SCH (09:57)
[2020-07-11] MEDS: ASPIRIN CHEW 81 MG TABLET PO SCH (09:58)
[2020-07-11] MEDS: PANTOPRAZOLE 40 MG TABLET PO SCH ×2 (09:58→16:30)
[2020-07-11] MEDS: DESITIN 4OZ/NYSTATIN 15 GRAM MIXTURE PASTE TOP SCH ×2 (12:27→20:55)
[2020-07-11] MEDS: POTASSIUM CHLORIDE 20 MEQ TABLET PO SCH (12:42)
[2020-07-11] MEDS: ATORVASTATIN 40 MG TABLET PO SCH (20:46)
[2020-07-11] MEDS: ACETAMINOPHEN 325 MG TABLET PO PRN (20:47)
[2020-07-11] MEDS: INSULIN GLARGINE 100 UNIT/ML SUBCUT SCH (20:52)
[2020-07-12 06:28] LABS: Basophils % 0.5 % (0.0-0.8); Eosinophils # 0.1 10*3/uL (0.0-0.87); Eosinophils % 1.7 % (0.00-10.9); Hematocrit 27.4 VOL% (42.0-52.0); Hemoglobin 9.2 GM/DL (14.0-18.0); Immature Granulocytes % 0.3 %; Immature Granulocytes Absolute 0.02 #; Lymphocytes # 1.5 10*3/uL (1.4-4.0); Lymphocytes % 24.8 % (21.2-54.2); Mean Corpuscular HGB Conc 33.6 GM/DL (32-36); Mean Corpuscular Volume 84.6 FL (87-102); Mean Platelet Volume 9.7 FL (9.6-12.0); Monocytes % 12.3 % (1.7-12.7); Neutrophils % 60.4 % (38.7-73.9); Platelet Count 538 T/CUMM (130-400); Red Blood Count 3.24 MC/CUMM (3.8-5.5); Red Cell Distribution Width 13.6 % (9.3-17.3); White Blood Count 5.9 T/CUMM (4-12)
[2020-07-12 07:13] LABS: Osmolality,Calculated 283.7 MOS/KG (273-304)
[2020-07-12] MEDS: INSULIN LISPRO 100 UNIT/ML SUBCUT SCH ×4 (08:36→21:39)
[2020-07-12] MEDS: CALCIUM CARBONATE CHEW 500 MG TABLET PO SCH ×2 (08:37→21:26)
[2020-07-12] MEDS: ASPIRIN CHEW 81 MG TABLET PO SCH (08:37)
[2020-07-12] MEDS: CLOPIDOGREL 75 MG TABLET PO SCH (08:37)
[2020-07-12] MEDS: DULoxetine 30 MG CAPSULE PO SCH (08:38)
[2020-07-12] MEDS: METOPROLOL TARTRATE 25 MG TABLET PO SCH ×2 (08:38→21:30)
[2020-07-12] MEDS: DESITIN 4OZ/NYSTATIN 15 GRAM MIXTURE PASTE TOP SCH ×2 (08:39→21:39)
[2020-07-12] MEDS: PANTOPRAZOLE 40 MG TABLET PO SCH ×2 (08:39→16:30)
[2020-07-12] MEDS: MEMANTINE 5 MG TABLET PO SCH (08:39)
[2020-07-12] MEDS: ATORVASTATIN 40 MG TABLET PO SCH (21:26)
[2020-07-12] MEDS: ACETAMINOPHEN 325 MG TABLET PO PRN (21:30)
[2020-07-12] MEDS: INSULIN GLARGINE 100 UNIT/ML SUBCUT SCH (21:33)
[2020-07-13 06:07] LABS: Basophils % 0.3 % (0.0-0.8); Eosinophils # 0.1 10*3/uL (0.0-0.87); Eosinophils % 2.4 % (0.00-10.9); Hematocrit 27.5 VOL% (42.0-52.0); Hemoglobin 9.1 GM/DL (14.0-18.0); Immature Granulocytes % 0.5 %; Immature Granulocytes Absolute 0.03 #; Lymphocytes # 1.3 10*3/uL (1.4-4.0); Lymphocytes % 21.4 % (21.2-54.2); Mean Corpuscular HGB Conc 33.1 GM/DL (32-36); Mean Corpuscular Volume 84.9 FL (87-102); Mean Platelet Volume 9.6 FL (9.6-12.0); Monocytes % 14.2 % (1.7-12.7); Neutrophils % 61.2 % (38.7-73.9); Platelet Count 497 T/CUMM (130-400); Red Blood Count 3.24 MC/CUMM (3.8-5.5); Red Cell Distribution Width 13.5 % (9.3-17.3); White Blood Count 5.9 T/CUMM (4-12)
[2020-07-13 06:26] LABS: Calcium 9.2 MG/DL (8.5-10.1); Potassium 4.6 MMOL/L (3.5-5.1)
[2020-07-13] MEDS: INSULIN LISPRO 100 UNIT/ML SUBCUT SCH ×4 (09:08→22:03)
[2020-07-13] MEDS: ASPIRIN CHEW 81 MG TABLET PO SCH (09:08)
[2020-07-13] MEDS: CLOPIDOGREL 75 MG TABLET PO SCH (09:08)
[2020-07-13] MEDS: MEMANTINE 5 MG TABLET PO SCH (09:09)
[2020-07-13] MEDS: METOPROLOL TARTRATE 25 MG TABLET PO SCH ×2 (09:09→22:01)
[2020-07-13] MEDS: PANTOPRAZOLE 40 MG TABLET PO SCH ×2 (09:09→16:06)
[2020-07-13] MEDS: CALCIUM CARBONATE CHEW 500 MG TABLET PO SCH ×2 (09:09→22:00)
[2020-07-13] MEDS: DULoxetine 30 MG CAPSULE PO SCH (09:09)
[2020-07-13] MEDS: DESITIN 4OZ/NYSTATIN 15 GRAM MIXTURE PASTE TOP SCH ×2 (09:13→22:04)
[2020-07-13] MEDS: ATORVASTATIN 40 MG TABLET PO SCH (22:01)
[2020-07-13] MEDS: INSULIN GLARGINE 100 UNIT/ML SUBCUT SCH (22:03)
[2020-07-14] MEDS: INSULIN LISPRO 100 UNIT/ML SUBCUT SCH ×4 (07:28→21:55)
[2020-07-14] MEDS: PANTOPRAZOLE 40 MG TABLET PO SCH ×2 (08:25→16:46)
[2020-07-14] MEDS: DULoxetine 30 MG CAPSULE PO SCH (08:26)
[2020-07-14] MEDS: CALCIUM CARBONATE CHEW 500 MG TABLET PO SCH ×2 (08:26→21:49)
[2020-07-14] MEDS: MEMANTINE 5 MG TABLET PO SCH (08:26)
[2020-07-14] MEDS: METOPROLOL TARTRATE 25 MG TABLET PO SCH ×2 (08:26→21:49)
[2020-07-14] MEDS: CLOPIDOGREL 75 MG TABLET PO SCH (08:26)
[2020-07-14] MEDS: ASPIRIN CHEW 81 MG TABLET PO SCH (08:27)
[2020-07-14] MEDS: DESITIN 4OZ/NYSTATIN 15 GRAM MIXTURE PASTE TOP SCH ×2 (08:28→21:56)
[2020-07-14] MEDS: ATORVASTATIN 40 MG TABLET PO SCH (21:49)
[2020-07-14] MEDS: INSULIN GLARGINE 100 UNIT/ML SUBCUT SCH (21:51)
[2020-07-15] MEDS: METOPROLOL TARTRATE 25 MG TABLET PO SCH ×2 (10:01→21:09)
[2020-07-15] MEDS: DULoxetine 30 MG CAPSULE PO SCH (10:01)
[2020-07-15] MEDS: MEMANTINE 5 MG TABLET PO SCH (10:02)
[2020-07-15] MEDS: CALCIUM CARBONATE CHEW 500 MG TABLET PO SCH ×2 (10:02→21:08)
[2020-07-15] MEDS: ASPIRIN CHEW 81 MG TABLET PO SCH (10:02)
[2020-07-15] MEDS: INSULIN LISPRO 100 UNIT/ML SUBCUT SCH ×3 (10:02→16:51)
[2020-07-15] MEDS: DESITIN 4OZ/NYSTATIN 15 GRAM MIXTURE PASTE TOP SCH ×2 (10:03→21:12)
[2020-07-15] MEDS: PANTOPRAZOLE 40 MG TABLET PO SCH ×2 (10:03→16:51)
[2020-07-15] MEDS: CLOPIDOGREL 75 MG TABLET PO SCH (10:03)
[2020-07-15] MEDS: ATORVASTATIN 40 MG TABLET PO SCH (21:08)
[2020-07-15] MEDS: INSULIN GLARGINE 100 UNIT/ML SUBCUT SCH (21:10)
[2020-07-16] MEDS: INSULIN LISPRO 100 UNIT/ML SUBCUT SCH ×3 (03:48→11:36)
[2020-07-16] MEDS: ASPIRIN CHEW 81 MG TABLET PO SCH (09:32)
[2020-07-16] MEDS: PANTOPRAZOLE 40 MG TABLET PO SCH (09:32)
[2020-07-16] MEDS: DULoxetine 30 MG CAPSULE PO SCH (09:32)
[2020-07-16] MEDS: CALCIUM CARBONATE CHEW 500 MG TABLET PO SCH (09:32)
[2020-07-16] MEDS: MEMANTINE 5 MG TABLET PO SCH (09:33)
[2020-07-16] MEDS: DESITIN 4OZ/NYSTATIN 15 GRAM MIXTURE PASTE TOP SCH (09:33)
[2020-07-16] MEDS: METOPROLOL TARTRATE 25 MG TABLET PO SCH (09:33)
[2020-07-16] MEDS: CLOPIDOGREL 75 MG TABLET PO SCH (09:33)
[2020-07-16 11:31] VITALS: BP 133/65
== END 2020-07-16 12:46 | DRG 207 ==
LOC: EDBD → EDUNIT# → N.ED 12:36 → SUATTDRO 14:06 → N.EDINP 14:06 → N.CC 15:12 → N.3E 07-01 09:43
PROVIDERS: ADMIT Internal Medicine; ATTEND Internal Medicine Geriatric Medicine

== ENCOUNTER 2021-02-14 14:59 | Inpatient (IN) ==
[2021-02-14] MEDS ORDERED: GLUCAGON 1 MG VIAL IM PRN ×2 (16:09)
[2021-02-14] MEDS ORDERED: DEXTROSE 50% 25 GM/50 ML VIAL IV PRN ×3 (16:09→17:16)
[2021-02-14] MEDS ORDERED: INSULIN LISPRO 100 UNIT/ML SUBCUT SCH (16:30)
[2021-02-14 16:43] LABS: Basophils % 0.1 % (0.0-0.8); Eosinophils # 0.1 10*3/uL (0.0-0.87); Eosinophils % 0.8 % (0.00-10.9); Hematocrit 36.9 VOL% (42.0-52.0); Immature Granulocytes % 0.6 %; Immature Granulocytes Absolute 0.06 #; Lymphocytes # 1.1 10*3/uL (1.4-4.0); Lymphocytes % 10.2 % (21.2-54.2); Mean Corpuscular HGB Conc 32.5 GM/DL (32-36); Mean Corpuscular Volume 90.2 FL (87-102); Mean Platelet Volume 10.2 FL (9.6-12.0); Monocytes % 8.8 % (1.7-12.7); Neutrophils % 79.5 % (38.7-73.9); Platelet Count 281 T/CUMM (130-400); Red Blood Count 4.09 MC/CUMM (3.8-5.5); Red Cell Distribution Width 14.1 % (9.3-17.3); White Blood Count 10.6 T/CUMM (4-12)
[2021-02-14 17:07] LABS: Albumin 3.5 G/DL (3.4-5.0); Bilirubin,Total 0.4 MG/DL (0.20-1.00); Calcium 8.7 MG/DL (8.5-10.1); Osmolality,Calculated 278.3 MOS/KG (273-304); Total Protein 6.9 G/DL (6.4-8.2)
[2021-02-14] MEDS ORDERED: DEXTROSE 5% 1,000 ML IV SCH (17:30)
[2021-02-14] MEDS: ACETAMINOPHEN 325 MG TABLET PO PRN (18:28)
[2021-02-14] MEDS ORDERED: KETOROLAC 30 MG/1 ML VIAL IV ONE (19:13)
[2021-02-14] MEDS ORDERED: KETOROLAC 30 MG/1 ML VIAL ONE (19:26)
[2021-02-14] MEDS ORDERED: DEXTROSE 50% 25 GM/50 ML VIAL IV ONE (20:39)
[2021-02-14] MEDS ORDERED: MORPHINE 2 MG/1 ML SYRINGE ONE (20:52)
[2021-02-14] MEDS: MORPHINE 2 MG/1 ML SYRINGE IV PRN (21:02)
[2021-02-15 04:20] LABS: Basophils % 0.2 % (0.0-0.8); Eosinophils # 0.1 10*3/uL (0.0-0.87); Eosinophils % 0.9 % (0.00-10.9); Hematocrit 35.2 VOL% (42.0-52.0); Hemoglobin 11.3 GM/DL (14.0-18.0); Immature Granulocytes % 0.5 %; Immature Granulocytes Absolute 0.04 #; Lymphocytes # 1.2 10*3/uL (1.4-4.0); Lymphocytes % 14.7 % (21.2-54.2); Mean Corpuscular HGB Conc 32.1 GM/DL (32-36); Mean Platelet Volume 10.7 FL (9.6-12.0); Monocytes % 12.3 % (1.7-12.7); Neutrophils % 71.4 % (38.7-73.9); Platelet Count 248 T/CUMM (130-400); Red Blood Count 3.87 MC/CUMM (3.8-5.5); Red Cell Distribution Width 13.9 % (9.3-17.3); White Blood Count 8.2 T/CUMM (4-12)
[2021-02-15] MEDS: MORPHINE 2 MG/1 ML SYRINGE IV PRN ×4 (04:29→18:21)
[2021-02-15 04:38] LABS: Calcium 8.8 MG/DL (8.5-10.1); Potassium 4.9 MMOL/L (3.5-5.1)
[2021-02-15 05:06] LABS: INR 0.9; PT Patient Result 10.6 SECS (10.5-12.0); Partial Thromboplastin Time 25.4 SECS (23.9-33.8)
[2021-02-15] MEDS ORDERED: INSULIN REGULAR 100 UNIT/ML SUBCUT ONE ×3 (05:06→08:28)
[2021-02-15] MEDS ORDERED: GLUCAGON 1 MG VIAL IM PRN (08:24)
[2021-02-15] MEDS ORDERED: DEXTROSE 50% 25 GM/50 ML VIAL IV PRN (08:24)
[2021-02-15] MEDS ORDERED: INFLUENZA VIRUS VACCINE 0.5 ML SYRINGE IM ONE (09:00)
[2021-02-15] MEDS: ENOXAPARIN 40 MG/0.4 ML SYRINGE SUBCUT SCH (09:14)
[2021-02-15] MEDS: INSULIN ASPART PROTAMINE/ASPART 70/30 100 UNIT/ML SUBCUT SCH ×2 (09:14→18:20)
[2021-02-15] MEDS: ONDANSETRON 4 MG/2 ML VIAL IV PRN (09:32)
[2021-02-15] MEDS: INSULIN REGULAR 100 UNIT/ML SUBCUT SCH ×4 (10:16→23:28)
[2021-02-15] MEDS ORDERED: hydrALAZINE 20 MG/1 ML VIAL IV PRN (10:58)
[2021-02-15] MEDS: INSULIN LISPRO 100 UNIT/ML SUBCUT SCH ×2 (12:41→17:35)
[2021-02-16] MEDS: MORPHINE 2 MG/1 ML SYRINGE IV PRN ×5 (00:17→21:21)
[2021-02-16] MEDS: INSULIN REGULAR 100 UNIT/ML SUBCUT SCH ×5 (04:51→22:12)
[2021-02-16 05:28] LABS: Basophils % 0.2 % (0.0-0.8); Eosinophils # 0.1 10*3/uL (0.0-0.87); Eosinophils % 0.7 % (0.00-10.9); Hematocrit 36.6 VOL% (42.0-52.0); Hemoglobin 11.9 GM/DL (14.0-18.0); Immature Granulocytes % 0.4 %; Immature Granulocytes Absolute 0.04 #; Lymphocytes # 1.1 10*3/uL (1.4-4.0); Lymphocytes % 10.8 % (21.2-54.2); Mean Corpuscular HGB Conc 32.5 GM/DL (32-36); Monocytes % 10.7 % (1.7-12.7); Neutrophils % 77.2 % (38.7-73.9); Platelet Count 286 T/CUMM (130-400); Red Blood Count 4.02 MC/CUMM (3.8-5.5); White Blood Count 9.8 T/CUMM (4-12)
[2021-02-16 05:51] LABS: Calcium 9.3 MG/DL (8.5-10.1); Osmolality,Calculated 287.1 MOS/KG (273-304); Potassium 4.5 MMOL/L (3.5-5.1)
[2021-02-16] MEDS ORDERED: ALBUTEROL 2.5 MG/3 ML NEB RESP TX PRN (07:29)
[2021-02-16] MEDS: GABAPENTIN 300 MG CAPSULE PO SCH ×3 (08:29→21:16)
[2021-02-16] MEDS: CALCIUM CARBONATE CHEW 500 MG TABLET PO SCH ×2 (08:29→21:15)
[2021-02-16] MEDS: lisinopriL 2.5 MG TABLET PO SCH (08:30)
[2021-02-16] MEDS: INSULIN LISPRO 100 UNIT/ML SUBCUT SCH ×3 (08:30→16:13)
[2021-02-16] MEDS: PANTOPRAZOLE 40 MG TABLET PO SCH (08:30)
[2021-02-16] MEDS: DULoxetine 30 MG CAPSULE PO SCH (08:30)
[2021-02-16] MEDS: INSULIN ASPART PROTAMINE/ASPART 70/30 100 UNIT/ML SUBCUT SCH ×2 (08:30→16:13)
[2021-02-16] MEDS: ENOXAPARIN 40 MG/0.4 ML SYRINGE SUBCUT SCH (08:30)
[2021-02-16] MEDS: MEMANTINE 5 MG TABLET PO SCH (08:30)
[2021-02-16] MEDS: METOPROLOL TARTRATE 25 MG TABLET PO SCH ×2 (08:31→21:15)
[2021-02-16] MEDS: ATORVASTATIN 40 MG TABLET PO SCH (21:16)
[2021-02-17] MEDS: INSULIN REGULAR 100 UNIT/ML SUBCUT SCH ×6 (00:48→20:36)
[2021-02-17] MEDS: MORPHINE 2 MG/1 ML SYRINGE IV PRN ×4 (07:25→20:36)
[2021-02-17] MEDS: lisinopriL 2.5 MG TABLET PO SCH (08:52)
[2021-02-17] MEDS: DULoxetine 30 MG CAPSULE PO SCH (08:52)
[2021-02-17] MEDS: CALCIUM CARBONATE CHEW 500 MG TABLET PO SCH ×2 (08:52→20:35)
[2021-02-17] MEDS: ENOXAPARIN 40 MG/0.4 ML SYRINGE SUBCUT SCH (08:52)
[2021-02-17] MEDS: GABAPENTIN 300 MG CAPSULE PO SCH ×3 (08:52→20:35)
[2021-02-17] MEDS: PANTOPRAZOLE 40 MG TABLET PO SCH (08:52)
[2021-02-17] MEDS: MEMANTINE 5 MG TABLET PO SCH (08:52)
[2021-02-17] MEDS: METOPROLOL TARTRATE 25 MG TABLET PO SCH ×2 (08:53→20:35)
[2021-02-17] MEDS: INSULIN LISPRO 100 UNIT/ML SUBCUT SCH ×3 (08:53→16:00)
[2021-02-17] MEDS: INSULIN ASPART PROTAMINE/ASPART 70/30 100 UNIT/ML SUBCUT SCH ×2 (08:53→15:51)
[2021-02-17] MEDS: ATORVASTATIN 40 MG TABLET PO SCH (20:35)
[2021-02-18] MEDS: INSULIN REGULAR 100 UNIT/ML SUBCUT SCH ×3 (01:38→08:43)
[2021-02-18] MEDS: MORPHINE 2 MG/1 ML SYRINGE IV PRN ×5 (01:39→22:13)
[2021-02-18] MEDS: lisinopriL 2.5 MG TABLET PO SCH (08:42)
[2021-02-18] MEDS: MEMANTINE 5 MG TABLET PO SCH (08:42)
[2021-02-18] MEDS: CALCIUM CARBONATE CHEW 500 MG TABLET PO SCH ×2 (08:42→21:11)
[2021-02-18] MEDS: GABAPENTIN 300 MG CAPSULE PO SCH ×3 (08:42→21:11)
[2021-02-18] MEDS: ASPIRIN EC 81 MG TABLET PO SCH (08:42)
[2021-02-18] MEDS: METOPROLOL TARTRATE 25 MG TABLET PO SCH ×2 (08:42→21:12)
[2021-02-18] MEDS: DULoxetine 30 MG CAPSULE PO SCH (08:42)
[2021-02-18] MEDS: INSULIN LISPRO 100 UNIT/ML SUBCUT SCH ×3 (08:42→16:07)
[2021-02-18] MEDS: PANTOPRAZOLE 40 MG TABLET PO SCH (08:42)
[2021-02-18] MEDS: ENOXAPARIN 40 MG/0.4 ML SYRINGE SUBCUT SCH (08:43)
[2021-02-18] MEDS: INSULIN ASPART PROTAMINE/ASPART 70/30 100 UNIT/ML SUBCUT SCH ×2 (08:43→16:08)
[2021-02-18] MEDS: DOCUSATE SODIUM 100 MG CAPSULE PO SCH ×2 (11:27→21:12)
[2021-02-18] MEDS: ATORVASTATIN 40 MG TABLET PO SCH (21:11)
[2021-02-19] MEDS ORDERED: INSULIN LISPRO 100 UNIT/ML SUBCUT ONE (04:44)
[2021-02-19] MEDS: ONDANSETRON 4 MG/2 ML VIAL IV PRN (04:58)
[2021-02-19] MEDS: MORPHINE 2 MG/1 ML SYRINGE IV PRN ×2 (04:59→11:25)
[2021-02-19 05:29] LABS: Basophils % 0.2 % (0.0-0.8); Eosinophils # 0.1 10*3/uL (0.0-0.87); Eosinophils % 0.9 % (0.00-10.9); Hematocrit 34.7 VOL% (42.0-52.0); Hemoglobin 11.5 GM/DL (14.0-18.0); Immature Granulocytes % 0.5 %; Immature Granulocytes Absolute 0.04 #; Lymphocytes % 10.9 % (21.2-54.2); Mean Corpuscular HGB Conc 33.1 GM/DL (32-36); Mean Corpuscular Volume 90.6 FL (87-102); Mean Platelet Volume 10.4 FL (9.6-12.0); Monocytes % 11.1 % (1.7-12.7); Neutrophils % 76.4 % (38.7-73.9); Platelet Count 339 T/CUMM (130-400); Red Blood Count 3.83 MC/CUMM (3.8-5.5); Red Cell Distribution Width 13.3 % (9.3-17.3); White Blood Count 8.8 T/CUMM (4-12)
[2021-02-19 05:47] LABS: Calcium 9.4 MG/DL (8.5-10.1); Osmolality,Calculated 287.8 MOS/KG (273-304)
[2021-02-19] MEDS ORDERED: DEXTROSE 50% 25 GM/50 ML VIAL IV PRN (07:42)
[2021-02-19] MEDS: INSULIN ASPART PROTAMINE/ASPART 70/30 100 UNIT/ML SUBCUT SCH (08:24)
[2021-02-19] MEDS: DULoxetine 30 MG CAPSULE PO SCH (08:28)
[2021-02-19] MEDS: ENOXAPARIN 40 MG/0.4 ML SYRINGE SUBCUT SCH (08:28)
[2021-02-19] MEDS: DOCUSATE SODIUM 100 MG CAPSULE PO SCH ×2 (08:28→21:03)
[2021-02-19] MEDS: MEMANTINE 5 MG TABLET PO SCH (08:29)
[2021-02-19] MEDS: CALCIUM CARBONATE CHEW 500 MG TABLET PO SCH ×2 (08:29→21:03)
[2021-02-19] MEDS: PANTOPRAZOLE 40 MG TABLET PO SCH (08:29)
[2021-02-19] MEDS: lisinopriL 2.5 MG TABLET PO SCH (08:29)
[2021-02-19] MEDS: GABAPENTIN 300 MG CAPSULE PO SCH ×3 (08:29→21:03)
[2021-02-19] MEDS: METOPROLOL TARTRATE 25 MG TABLET PO SCH ×2 (08:29→21:03)
[2021-02-19] MEDS: INSULIN GLARGINE 100 UNIT/ML SUBCUT SCH (08:42)
[2021-02-19] MEDS: ASPIRIN EC 81 MG TABLET PO SCH (09:48)
[2021-02-19] MEDS: POLYETHYLENE GLYCOL POWDER 17 GM PACK PO SCH (10:36)
[2021-02-19] MEDS: INSULIN LISPRO 100 UNIT/ML SUBCUT SCH ×3 (11:24→20:58)
[2021-02-19] MEDS ORDERED: propofoL 200 MG/20 ML VIAL IV ONE ×2 (15:12→15:16)
[2021-02-19] MEDS ORDERED: BUPIVACAINE SPINAL 0.75% 2 ML AMP SPINAL ONE (15:12)
[2021-02-19] MEDS ORDERED: LIDOCAINE 2% 5 ML VIAL ONE (15:12)
[2021-02-19] MEDS ORDERED: MIDAZOLAM 2 MG/2 ML VIAL ONE (15:13)
[2021-02-19] MEDS ORDERED: fentaNYL 100 MCG/2 ML VIAL ONE (15:43)
[2021-02-19] MEDS ORDERED: ceFAZolin 1,000 MG VIAL ONE ×2 (16:03)
[2021-02-19] MEDS ORDERED: SODIUM CHLORIDE 0.9% 100 ML IV ONE (16:38)
[2021-02-19] MEDS ORDERED: ONDANSETRON 4 MG/2 ML VIAL IV PRN (16:45)
[2021-02-19] MEDS ORDERED: PROMETHAZINE INJ 25 MG in SODIUM CHLORIDE 0.9% 50 ML IV PRN (16:45)
[2021-02-19] MEDS ORDERED: HYDROmorphone 2 MG/1 ML VIAL IV PRN (16:45)
[2021-02-19] MEDS ORDERED: MEPERIDINE 25 MG/1 ML VIAL IV PRN (16:45)
[2021-02-19] MEDS ORDERED: diphenhydrAMINE 50 MG/1 ML VIAL IV PRN (16:45)
[2021-02-19] MEDS: ATORVASTATIN 40 MG TABLET PO SCH (21:03)
[2021-02-20] MEDS: MORPHINE 2 MG/1 ML SYRINGE IV PRN ×2 (02:29→10:25)
[2021-02-20 09:08] LABS: Basophils % 0.2 % (0.0-0.8); Eosinophils % 0.1 % (0.00-10.9); Hemoglobin 10.8 GM/DL (14.0-18.0); Immature Granulocytes % 0.8 %; Immature Granulocytes Absolute 0.09 #; Lymphocytes # 0.8 10*3/uL (1.4-4.0); Lymphocytes % 6.5 % (21.2-54.2); Mean Corpuscular HGB Conc 32.7 GM/DL (32-36); Mean Corpuscular Volume 90.7 FL (87-102); Mean Platelet Volume 10.8 FL (9.6-12.0); Monocytes % 9.5 % (1.7-12.7); Neutrophils % 82.9 % (38.7-73.9); Platelet Count 419 T/CUMM (130-400); Red Blood Count 3.64 MC/CUMM (3.8-5.5); Red Cell Distribution Width 13.3 % (9.3-17.3); White Blood Count 11.7 T/CUMM (4-12)
[2021-02-20 09:25] LABS: Calcium 9.9 MG/DL (8.5-10.1); Osmolality,Calculated 302.8 MOS/KG (273-304); Potassium 5.1 MMOL/L (3.5-5.1)
[2021-02-20] MEDS: INSULIN GLARGINE 100 UNIT/ML SUBCUT SCH (09:46)
[2021-02-20] MEDS: INSULIN LISPRO 100 UNIT/ML SUBCUT SCH ×5 (09:46→20:34)
[2021-02-20] MEDS: ACETAMINOPHEN 325 MG TABLET PO PRN (10:08)
[2021-02-20] MEDS: lisinopriL 2.5 MG TABLET PO SCH (10:10)
[2021-02-20] MEDS: CALCIUM CARBONATE CHEW 500 MG TABLET PO SCH ×2 (10:10→20:34)
[2021-02-20] MEDS: MEMANTINE 5 MG TABLET PO SCH (10:10)
[2021-02-20] MEDS: DULoxetine 30 MG CAPSULE PO SCH (10:10)
[2021-02-20] MEDS: PANTOPRAZOLE 40 MG TABLET PO SCH (10:11)
[2021-02-20] MEDS: METOPROLOL TARTRATE 25 MG TABLET PO SCH ×2 (10:11→20:35)
[2021-02-20] MEDS: CLOPIDOGREL 75 MG TABLET PO SCH (10:11)
[2021-02-20] MEDS: DOCUSATE SODIUM 100 MG CAPSULE PO SCH ×2 (10:11→20:35)
[2021-02-20] MEDS: ASPIRIN EC 81 MG TABLET PO SCH (10:12)
[2021-02-20] MEDS: GABAPENTIN 300 MG CAPSULE PO SCH ×3 (10:12→20:35)
[2021-02-20] MEDS: POLYETHYLENE GLYCOL POWDER 17 GM PACK PO SCH (10:12)
[2021-02-20] MEDS ORDERED: INSULIN LISPRO 100 UNIT/ML SUBCUT ONE (10:48)
[2021-02-20] MEDS: ATORVASTATIN 40 MG TABLET PO SCH (20:35)
[2021-02-21] MEDS: INSULIN LISPRO 100 UNIT/ML SUBCUT SCH ×6 (00:10→21:43)
[2021-02-21] MEDS: MORPHINE 2 MG/1 ML SYRINGE IV PRN (06:28)
[2021-02-21 09:14] LABS: Basophils % 0.1 % (0.0-0.8); Eosinophils % 0.1 % (0.00-10.9); Hematocrit 30.1 VOL% (42.0-52.0); Immature Granulocytes % 0.8 %; Immature Granulocytes Absolute 0.13 #; Lymphocytes # 0.9 10*3/uL (1.4-4.0); Lymphocytes % 5.7 % (21.2-54.2); Mean Corpuscular HGB Conc 33.2 GM/DL (32-36); Mean Corpuscular Volume 88.5 FL (87-102); Mean Platelet Volume 9.9 FL (9.6-12.0); Monocytes % 10.4 % (1.7-12.7); Neutrophils % 82.9 % (38.7-73.9); Platelet Count 382 T/CUMM (130-400); Red Cell Distribution Width 13.2 % (9.3-17.3); White Blood Count 15.6 T/CUMM (4-12)
[2021-02-21] MEDS: POLYETHYLENE GLYCOL POWDER 17 GM PACK PO SCH (09:20)
[2021-02-21] MEDS: CALCIUM CARBONATE CHEW 500 MG TABLET PO SCH ×2 (09:21→21:44)
[2021-02-21] MEDS: MEMANTINE 5 MG TABLET PO SCH (09:21)
[2021-02-21] MEDS: DULoxetine 30 MG CAPSULE PO SCH (09:21)
[2021-02-21] MEDS: ASPIRIN EC 81 MG TABLET PO SCH (09:22)
[2021-02-21] MEDS: CLOPIDOGREL 75 MG TABLET PO SCH (09:22)
[2021-02-21] MEDS: PANTOPRAZOLE 40 MG TABLET PO SCH (09:22)
[2021-02-21] MEDS: GABAPENTIN 300 MG CAPSULE PO SCH ×3 (09:22→21:44)
[2021-02-21] MEDS: METOPROLOL TARTRATE 25 MG TABLET PO SCH ×2 (09:22→21:44)
[2021-02-21] MEDS: lisinopriL 2.5 MG TABLET PO SCH (09:22)
[2021-02-21] MEDS: DOCUSATE SODIUM 100 MG CAPSULE PO SCH ×2 (09:22→21:44)
[2021-02-21] MEDS: ENOXAPARIN 40 MG/0.4 ML SYRINGE SUBCUT SCH (09:22)
[2021-02-21] MEDS: INSULIN GLARGINE 100 UNIT/ML SUBCUT SCH (09:23)
[2021-02-21 09:28] LABS: Calcium 9.8 MG/DL (8.5-10.1); Osmolality,Calculated 278.5 MOS/KG (273-304)
[2021-02-21] MEDS: SODIUM CHLORIDE 0.9% 1,000 ML IV SCH (13:33)
[2021-02-21] MEDS: ATORVASTATIN 40 MG TABLET PO SCH (21:44)
[2021-02-22] MEDS: INSULIN LISPRO 100 UNIT/ML SUBCUT SCH ×6 (01:44→20:30)
[2021-02-22 08:05] LABS: Basophils % 0.2 % (0.0-0.8); Eosinophils % 0.3 % (0.00-10.9); Hematocrit 28.9 VOL% (42.0-52.0); Hemoglobin 9.5 GM/DL (14.0-18.0); Immature Granulocytes % 0.6 %; Immature Granulocytes Absolute 0.07 #; Lymphocytes % 9.1 % (21.2-54.2); Mean Corpuscular HGB Conc 32.9 GM/DL (32-36); Mean Corpuscular Volume 89.2 FL (87-102); Mean Platelet Volume 9.9 FL (9.6-12.0); Monocytes % 9.8 % (1.7-12.7); Platelet Count 405 T/CUMM (130-400); Red Blood Count 3.24 MC/CUMM (3.8-5.5); Red Cell Distribution Width 13.1 % (9.3-17.3); White Blood Count 11.3 T/CUMM (4-12)
[2021-02-22] MEDS: DULoxetine 30 MG CAPSULE PO SCH (09:56)
[2021-02-22] MEDS: METOPROLOL TARTRATE 25 MG TABLET PO SCH ×2 (09:56→21:09)
[2021-02-22] MEDS: GABAPENTIN 300 MG CAPSULE PO SCH ×3 (09:56→21:08)
[2021-02-22] MEDS: CALCIUM CARBONATE CHEW 500 MG TABLET PO SCH ×2 (09:56→21:07)
[2021-02-22] MEDS: lisinopriL 2.5 MG TABLET PO SCH (09:56)
[2021-02-22] MEDS: DOCUSATE SODIUM 100 MG CAPSULE PO SCH ×2 (09:56→21:08)
[2021-02-22] MEDS: ASPIRIN EC 81 MG TABLET PO SCH (09:57)
[2021-02-22] MEDS: CLOPIDOGREL 75 MG TABLET PO SCH (09:57)
[2021-02-22] MEDS: ENOXAPARIN 40 MG/0.4 ML SYRINGE SUBCUT SCH (09:57)
[2021-02-22] MEDS: PANTOPRAZOLE 40 MG TABLET PO SCH (09:57)
[2021-02-22] MEDS: MEMANTINE 5 MG TABLET PO SCH (09:57)
[2021-02-22] MEDS: INSULIN GLARGINE 100 UNIT/ML SUBCUT SCH (10:04)
[2021-02-22] MEDS: SODIUM CHLORIDE 0.9% 1,000 ML IV SCH (10:05)
[2021-02-22] MEDS: ACETAMINOPHEN 325 MG TABLET PO PRN (10:06)
[2021-02-22] MEDS: POLYETHYLENE GLYCOL POWDER 17 GM PACK PO SCH (10:07)
[2021-02-22] MEDS: ATORVASTATIN 40 MG TABLET PO SCH (21:08)
[2021-02-23] MEDS: INSULIN LISPRO 100 UNIT/ML SUBCUT SCH ×5 (01:05→15:41)
[2021-02-23 05:13] LABS: Basophils % 0.1 % (0.0-0.8); Eosinophils # 0.1 10*3/uL (0.0-0.87); Eosinophils % 1.2 % (0.00-10.9); Hematocrit 24.6 VOL% (42.0-52.0); Hemoglobin 8.2 GM/DL (14.0-18.0); Immature Granulocytes % 0.8 %; Immature Granulocytes Absolute 0.06 #; Lymphocytes # 0.8 10*3/uL (1.4-4.0); Lymphocytes % 11.3 % (21.2-54.2); Mean Corpuscular HGB Conc 33.3 GM/DL (32-36); Mean Corpuscular Volume 87.2 FL (87-102); Mean Platelet Volume 9.9 FL (9.6-12.0); Monocytes % 12.6 % (1.7-12.7); Platelet Count 389 T/CUMM (130-400); Red Blood Count 2.82 MC/CUMM (3.8-5.5); Red Cell Distribution Width 13.1 % (9.3-17.3); White Blood Count 7.2 T/CUMM (4-12)
[2021-02-23] MEDS: METOPROLOL TARTRATE 25 MG TABLET PO SCH (09:18)
[2021-02-23] MEDS: INSULIN GLARGINE 100 UNIT/ML SUBCUT SCH (09:19)
[2021-02-23] MEDS: ENOXAPARIN 40 MG/0.4 ML SYRINGE SUBCUT SCH (09:23)
[2021-02-23] MEDS: POLYETHYLENE GLYCOL POWDER 17 GM PACK PO SCH (09:24)
[2021-02-23] MEDS: ACETAMINOPHEN 325 MG TABLET PO PRN ×2 (09:24→13:34)
[2021-02-23] MEDS: CALCIUM CARBONATE CHEW 500 MG TABLET PO SCH (09:25)
[2021-02-23] MEDS: CLOPIDOGREL 75 MG TABLET PO SCH (09:25)
[2021-02-23] MEDS: DULoxetine 30 MG CAPSULE PO SCH (09:25)
[2021-02-23] MEDS: GABAPENTIN 300 MG CAPSULE PO SCH ×2 (09:25→14:53)
[2021-02-23] MEDS: ASPIRIN EC 81 MG TABLET PO SCH (09:25)
[2021-02-23] MEDS: PANTOPRAZOLE 40 MG TABLET PO SCH (09:26)
[2021-02-23] MEDS: MEMANTINE 5 MG TABLET PO SCH (09:26)
[2021-02-23] MEDS: DOCUSATE SODIUM 100 MG CAPSULE PO SCH (09:26)
[2021-02-23] MEDS: lisinopriL 2.5 MG TABLET PO SCH (09:26)
[2021-02-23] MEDS: SODIUM CHLORIDE 0.9% 1,000 ML IV SCH (11:44)
[2021-02-23 15:49] VITALS: BP 129/65
== END 2021-02-23 16:35 | DRG 522 ==
LOC: EDBD → EDUNIT# → N.ED 14:59 → SUATTDRO 16:09 → N.EDINP 16:09 → N.3E 16:40
PROVIDERS: ADMIT Nurse Practitioner Family; ATTEND Internal Medicine

== ENCOUNTER 2021-12-19 14:27 | Inpatient (IN) ==
[2021-12-19] MEDS ORDERED: SODIUM CHLORIDE 0.9% 1,000 ML IV STA ×2 (16:15→16:58)
[2021-12-19 16:22] LABS: Basophils % 0.2 % (0.0-0.8); Eosinophils % 0.1 % (0.00-10.9); Hematocrit 40.8 VOL% (42.0-52.0); Hemoglobin 13.1 GM/DL (14.0-18.0); Immature Granulocytes % 0.5 %; Immature Granulocytes Absolute 0.06 #; Lymphocytes # 1.2 10*3/uL (1.4-4.0); Lymphocytes % 10.5 % (21.2-54.2); Mean Corpuscular HGB Conc 32.1 GM/DL (32-36); Mean Corpuscular Volume 89.7 FL (87-102); Mean Platelet Volume 11.2 FL (9.6-12.0); Monocytes # 0.5 10*3/uL (0.11-0.8); Monocytes % 4.7 % (1.7-12.7); Platelet Count 318 T/CUMM (130-400); Red Blood Count 4.55 MC/CUMM (3.8-5.5); White Blood Count 11.6 T/CUMM (4-12)
[2021-12-19 16:35] LABS: Albumin 4.6 G/DL (3.4-5.0); Bilirubin,Total 1.4 MG/DL (0.20-1.00); Osmolality,Calculated 305.9 MOS/KG (273-304); Potassium 5.8 MMOL/L (3.5-5.1); Total Protein 8.4 G/DL (6.4-8.2)
[2021-12-19 16:56] LABS: Bilirubin,Urine Negative (Negative); Blood, Urine Negative (Negative); Glucose,Urine (UA) 500 mg/dL (Negative); Ketones,Urine >=160 mg/dL (Negative); Nitrite,Urine Negative (Negative); Protein,Urine Negative (Negative); Urine Appearance Clear (Clear); Urine Color Yellow (Yellow); Urine Specific Gravity 1.015 (1.001-1.035); Urine Urobilinogen 0.2 eU/dL (<2.0); Urine pH 5.5 (4.5-8.0)
[2021-12-19 16:57] LABS: Bacteria,Urine Occasional /HPF (Few); Mucus,Urine Occasional /LPF (Occasional)
[2021-12-19] MEDS ORDERED: SODIUM CHLORIDE 0.9% 500 ML IV STA (17:11)
[2021-12-19] MEDS ORDERED: INSULIN LISPRO 100 UNIT/ML IV ONE (17:25)
[2021-12-19] MEDS ORDERED: INSULIN ASPART PROTAMINE/ASPART 70/30 100 UNIT/ML SUBCUT ONE (17:34)
[2021-12-19] MEDS ORDERED: GLUCAGON 1 MG VIAL IM PRN (17:37)
[2021-12-19] MEDS ORDERED: ALUMINUM/MAGNES/SIMETH MAX STR 30 ML UDCUP PO PRN (17:37)
[2021-12-19] MEDS ORDERED: ALBUTEROL 2.5 MG/3 ML NEB RESP TX PRN ×2 (17:37→17:44)
[2021-12-19] MEDS ORDERED: ONDANSETRON 4 MG/2 ML VIAL IV PRN (17:37)
[2021-12-19 17:44] LABS: Arterial Base Excess iSTAT -15 MMOL/L (-2.5-2.5); Arterial Bicarbonate iSTAT 11.3 MMOL/L (20-26); Arterial O2 Saturation iSTAT 97 % (95-100); Arterial PCO2 iSTAT 27 MM HG (35-48); Arterial PO2 iSTAT 107 MM HG (80-95); Arterial Total CO2 iSTAT 12 MMO/L (23-27); Arterial pH iSTAT 7.225 (7.35-7.45)
[2021-12-19] MEDS ORDERED: NIFEdipine 10 MG CAPSULE PO PRN (17:47)
[2021-12-19] MEDS ORDERED: DEXTROSE 10% 250 ML BAG IV PRN ×2 (18:00→18:33)
[2021-12-19] MEDS: LACTATED RINGERS 1,000 ML IV SCH (19:29)
[2021-12-19 19:32] LABS: Calcium 8.7 MG/DL (8.5-10.1); Osmolality,Calculated 309.7 MOS/KG (273-304)
[2021-12-19] MEDS: INSULIN LISPRO 100 UNIT/ML SUBCUT SCH (19:43)
[2021-12-19] MEDS ORDERED: cloNIDine 0.3 MG/24 HR PATCH TRANSDERM SCH (20:00)
[2021-12-19] MEDS: ENOXAPARIN 30 MG/0.3 ML SYRINGE SUBCUT SCH (20:13)
[2021-12-19] MEDS: METOPROLOL TARTRATE 25 MG TABLET PO SCH (20:13)
[2021-12-19] MEDS: ATORVASTATIN 40 MG TABLET PO SCH (20:13)
[2021-12-19 23:47] LABS: Calcium 8.9 MG/DL (8.5-10.1); Osmolality,Calculated 291.5 MOS/KG (273-304)
[2021-12-20] MEDS: INSULIN LISPRO 100 UNIT/ML SUBCUT SCH ×6 (00:07→21:19)
[2021-12-20] MEDS: LACTATED RINGERS 1,000 ML IV SCH (00:07)
[2021-12-20] MEDS ORDERED: LACTATED RINGERS 1,000 ML IV SCH (04:00)
[2021-12-20 04:47] LABS: Calcium 8.8 MG/DL (8.5-10.1); Osmolality,Calculated 283.1 MOS/KG (273-304); Potassium 4.1 MMOL/L (3.5-5.1)
[2021-12-20] MEDS ORDERED: HYDROCORTISONE 100 MG VIAL IV ONE (07:24)
[2021-12-20] MEDS ORDERED: DEXTROSE 5% LACTATED RINGERS 1,000 ML IV SCH (07:30)
[2021-12-20] MEDS: PANTOPRAZOLE 40 MG TABLET PO SCH (08:30)
[2021-12-20] MEDS: CLOPIDOGREL 75 MG TABLET PO SCH (08:30)
[2021-12-20] MEDS: ASPIRIN EC 81 MG TABLET PO SCH (08:31)
[2021-12-20] MEDS: DULoxetine 30 MG CAPSULE PO SCH (08:31)
[2021-12-20] MEDS: METOPROLOL TARTRATE 25 MG TABLET PO SCH ×2 (08:31→21:02)
[2021-12-20] MEDS: INSULIN ASPART PROTAMINE/ASPART 70/30 100 UNIT/ML SUBCUT SCH ×2 (08:32→17:30)
[2021-12-20] MEDS: DEXTROSE 5% LACTATED RINGERS 1,000 ML IV SCH (08:37)
[2021-12-20 10:01] LABS: Osmolality,Calculated 295.4 MOS/KG (273-304); Potassium 4.1 MMOL/L (3.5-5.1)
[2021-12-20] MEDS ORDERED: ZIPRASIDONE 20 MG/1 ML VIAL IM PRN (11:23)
[2021-12-20] MEDS: MEMANTINE 10 MG TABLET PO SCH (12:44)
[2021-12-20] MEDS ORDERED: DIAZEPAM 5 MG TABLET PO ONE (14:00)
[2021-12-20 14:06] LABS: Calcium 9.2 MG/DL (8.5-10.1); Osmolality,Calculated 287.4 MOS/KG (273-304); Potassium 5.1 MMOL/L (3.5-5.1)
[2021-12-20] MEDS ORDERED: DIAZEPAM 5 MG TABLET ONE (14:07)
[2021-12-20] MEDS: GABAPENTIN 100 MG CAPSULE PO SCH ×2 (14:31→21:02)
[2021-12-20] MEDS: DIAZEPAM 5 MG TABLET PO PRN ×2 (14:31→17:48)
[2021-12-20] MEDS: ATORVASTATIN 40 MG TABLET PO SCH (21:02)
[2021-12-20] MEDS: ENOXAPARIN 30 MG/0.3 ML SYRINGE SUBCUT SCH (21:05)
[2021-12-21] MEDS: DEXTROSE 5% LACTATED RINGERS 1,000 ML IV SCH (08:07)
[2021-12-21] MEDS: INSULIN ASPART PROTAMINE/ASPART 70/30 100 UNIT/ML SUBCUT SCH ×2 (08:07→17:00)
[2021-12-21] MEDS: INSULIN LISPRO 100 UNIT/ML SUBCUT SCH ×4 (08:07→21:11)
[2021-12-21 09:05] LABS: Albumin 3.4 G/DL (3.4-5.0); Bilirubin,Total 0.5 MG/DL (0.20-1.00); Calcium 9.3 MG/DL (8.5-10.1); Osmolality,Calculated 297.3 MOS/KG (273-304); Potassium 3.9 MMOL/L (3.5-5.1)
[2021-12-21] MEDS: GABAPENTIN 100 MG CAPSULE PO SCH ×3 (09:15→21:06)
[2021-12-21] MEDS: METOPROLOL TARTRATE 25 MG TABLET PO SCH ×2 (09:15→21:06)
[2021-12-21] MEDS: MEMANTINE 10 MG TABLET PO SCH (09:15)
[2021-12-21] MEDS: DULoxetine 30 MG CAPSULE PO SCH (09:16)
[2021-12-21] MEDS: PANTOPRAZOLE 40 MG TABLET PO SCH (09:16)
[2021-12-21] MEDS: CLOPIDOGREL 75 MG TABLET PO SCH (09:16)
[2021-12-21] MEDS: ASPIRIN EC 81 MG TABLET PO SCH (09:16)
[2021-12-21] MEDS ORDERED: MAGNESIUM SULF RIDER 2 GM/50 ML PREMIX IV ONE (19:31)
[2021-12-21] MEDS: ATORVASTATIN 40 MG TABLET PO SCH (21:07)
[2021-12-22 05:21] LABS: Basophils % 0.2 % (0.0-0.8); Eosinophils # 0.2 10*3/uL (0.0-0.87); Eosinophils % 2.7 % (0.00-10.9); Hematocrit 33.7 VOL% (42.0-52.0); Immature Granulocytes % 0.4 %; Immature Granulocytes Absolute 0.02 #; Lymphocytes # 1.6 10*3/uL (1.4-4.0); Lymphocytes % 28.4 % (21.2-54.2); Mean Corpuscular HGB Conc 32.6 GM/DL (32-36); Mean Corpuscular Volume 88.7 FL (87-102); Mean Platelet Volume 11.1 FL (9.6-12.0); Monocytes # 0.7 10*3/uL (0.11-0.8); Monocytes % 12.2 % (1.7-12.7); Neutrophils % 56.1 % (38.7-73.9); Platelet Count 234 T/CUMM (130-400); Red Cell Distribution Width 13.5 % (9.3-17.3); White Blood Count 5.6 T/CUMM (4-12)
[2021-12-22 05:33] LABS: Albumin 3.2 G/DL (3.4-5.0); Bilirubin,Total 0.6 MG/DL (0.20-1.00); Calcium 8.7 MG/DL (8.5-10.1); Osmolality,Calculated 295.1 MOS/KG (273-304); Potassium 5.2 MMOL/L (3.5-5.1); Total Protein 6.2 G/DL (6.4-8.2)
[2021-12-22] MEDS: INSULIN LISPRO 100 UNIT/ML SUBCUT SCH ×2 (08:48→11:30)
[2021-12-22] MEDS: GABAPENTIN 100 MG CAPSULE PO SCH ×2 (08:49→16:09)
[2021-12-22] MEDS: INSULIN ASPART PROTAMINE/ASPART 70/30 100 UNIT/ML SUBCUT SCH (08:49)
[2021-12-22] MEDS: ASPIRIN EC 81 MG TABLET PO SCH (08:49)
[2021-12-22] MEDS: METOPROLOL TARTRATE 25 MG TABLET PO SCH (08:49)
[2021-12-22] MEDS: MEMANTINE 10 MG TABLET PO SCH (08:49)
[2021-12-22] MEDS: PANTOPRAZOLE 40 MG TABLET PO SCH (08:49)
[2021-12-22] MEDS: CLOPIDOGREL 75 MG TABLET PO SCH (08:49)
[2021-12-22] MEDS: DULoxetine 30 MG CAPSULE PO SCH (08:49)
[2021-12-22] MEDS ORDERED: ENOXAPARIN 40 MG/0.4 ML SYRINGE SUBCUT SCH (09:00)
[2021-12-22] MEDS ORDERED: INSULIN ASPART PROTAMINE/ASPART 70/30 100 UNIT/ML SUBCUT SCH (11:00)
[2021-12-22] MEDS ORDERED: INSULIN GLARGINE 100 UNIT/ML SUBCUT SCH (11:00)
[2021-12-22] MEDS ORDERED: INSULIN LISPRO 100 UNIT/ML SUBCUT SCH (11:30)
[2021-12-22 12:03] VITALS: BP 134/61
== END 2021-12-22 15:48 | DRG 638 ==
LOC: N.ED 14:27 → SUATTDRO 17:22 → N.EDINP 17:22 → N.ICU 18:56 → N.5E 12-21 17:40
PROVIDERS: ADMIT Internal Medicine; ATTEND Internal Medicine